=== PATIENT | male | born 1970 | race Caucasian/White ===

== ENCOUNTER 2019-12-08 08:59 | Outpatient (REF) | payer BC, SELFPAY ==
[2019-12-08 10:56] LABS: INTERNATIONAL NORM RATIO 2.8 (0.9-1.1); Prothrombin Time 33.6 SEC (10.8-13.0)
== END 2019-12-08 09:00 | disposition home or self-care (01) ==
LOC: HO.10HDL 08:59
PROVIDERS: Visit Provider Internal Medicine
DX: I82.409 Acute embolism and thrombosis of unspecified deep veins of unspecified lower extremity (principal); Z95.2 Presence of prosthetic heart valve
CPT/HCPCS: 36415; 85610

== ENCOUNTER → 2020-01-04 09:43 | Outpatient (BNVA) | payer BC, SELFPAY | PROVIDERS: PCP Internal Medicine; Referring Provider Internal Medicine; Visit Provider Internal Medicine Cardiovascular Disease | DX: Z95.2 Presence of prosthetic heart valve (principal); Z86.718 Personal history of other venous thrombosis and embolism; D68.59 Other primary thrombophilia; Z79.01 Long term (current) use of anticoagulants | CPT/HCPCS: 93005 ==

== ENCOUNTER 2020-01-04 10:41 | Outpatient (REF) | payer BC, SELFPAY ==
[2020-01-04 14:11] LABS: INTERNATIONAL NORM RATIO 2.5 (0.9-1.1); Prothrombin Time 29.6 SEC (10.8-13.0)
== END 2020-01-04 10:42 | disposition home or self-care (01) ==
LOC: HO.10HDL 10:41
PROVIDERS: Visit Provider Internal Medicine
DX: I82.409 Acute embolism and thrombosis of unspecified deep veins of unspecified lower extremity (principal); Z95.2 Presence of prosthetic heart valve
CPT/HCPCS: 36415; 85610

== ENCOUNTER → 2020-01-13 09:30 | Outpatient (REF) | payer BC, SELFPAY ==
--- NOTE | 2020-01-13 09:37 | CA_ITS ---
Transthoracic Echocardiogram Patient (Last, First, Middle): Jagdish Bautista, Gender: Male Date of : 1970 Age: 49 Procedure Date: 01/13/2020 Procedure Type: Transthoracic Echocardiogram Location: OP Height: 185.42 cm Weight: 92.08 kg BSA: 2.17 m2 Heart Rate: bpm BP: 104 / 64 mmHg Grocery Clerk: CARLOS Davenport MD: Deepak Villanueva MD Tibco Developer: Deepak Villanueva MD Symptoms: Z95.2 - Presence of prosthetic heart valve Study Quality: Good ECG Rhythm: Sinus Conclusions: - 1. Normal LV systolic and diastolic function 2. Normally functioning mechanical aortic prosthesis with mean gradient of 10 mm of mercury 3. Normal RV systolic pressure 4. No pericardial effusion Findings Left Ventricle Normal left ventricular size, thickness, and systolic function. The visually estimated ejection fraction is between 60-65%. Diastolic function is normal for age. Right Ventricle Mildly increased right ventricular cavity size. There is normal right ventricular systolic function. Atria The left atrium is normal in size. There is lipomatous hypertrophy of the interatrial septum. There is no evidence of interatrial shunt. The right atrium is mildly dilated. Aortic Valve A mechanical prosthetic aortic valve is present. The prosthetic aortic valve appears to be functioning normally. The mean gradient is 10 mmHg. There is no aortic valve regurgitation. The mechanical prosthesis is well seated with no abnormal rocking motion. Mitral Valve Normal mitral valve structure and function. There is trace mitral valve regurgitation. There is no mitral valve stenosis. Pulmonic Valve The pulmonic valve is likely normal. Tricuspid Valve Normal tricuspid valve structure. There is trace tricuspid valve regurgitation. The right ventricular systolic pressure is normal. The right ventricular systolic pressure is 24 mmHg. Normal right atrial pressure. There is no evidence of pulmonary hypertension. Great Vessels All visible segments of the aorta are normal in size. The pulmonary artery was not well visualized. Venous The inferior vena cava is normal in size and collapses greater than 50% with inspiration. Pericardium/Pleural There is no evidence of pericardial effusion. Prior Study Comparison No significant change compared to prior study dated: 01/02/2018. Measurements 2D Linear Measurements RVIDd: 3.42 RVIDd Index: 1.58 IVSd: 0.96 0.6-0.9/0.6-1.0 cm LVIDd: 4.71 3.9-5.3/4.2-5.9 cm LVIDd Index: 2.17 2.4-3.2/2.2-3.1 cm/m2 LVIDs: 2.99 2.0-3.6 cm LVPWd: 1.03 0.7-1.1 cm Ao Root: 3.10 2.1-3.5 cm LA Diam: 3.80 2.7-3.8/3.0-4.0 cm LAIDs Index: 1.75 1.5-2.3 cm/m2 LV Mass: 241.97 67-162/88-224 g LV Mass Index: 111.51 43-95/49-115 g/m2 LVOT Diam: 2.20 3.0+(-)1.3 cm 2D Systolic Function EF 4C: 67.70 >55% EF 2C: 62.10 >55% EF BiP: 64.90 >55% Mitral Valve MV Pk E: 1.32 MV PK A: 0.79 MV Decel Time: 201.00 E/A: 1.70 E'Lateral: 12.30 E'Medial: 11.40 E/E' Med: 11.60 E/E' Lat: 10.70 Aortic Valve AoV Pk Casey: 2.13 AoV Mn Casey: 1.52 AoV VTI: 0.39 AoV Pk Grad: 18.00 Aov Mn Grad: 10.00 YOU Cont.VTI: 1.88 LVOT LVOT Pk Casey: 0.85 LVOT Mn Casey: 0.67 LVOT VTI: 0.19 LVOT Pk Grad: 3.00 LVOT Mn Grad: 2.00 LVOT Diam: 2.20 LVOT Area: 3.80 Diastolic Function MV Pk E: 1.32 MV Pk A: 0.79 E/A: 1.70 E'Medial: 11.40 E/E' Med: 11.60 E' Laterial: 12.30 E/E' Lat: 10.70 Tricuspid Valve TR Pk Casey: 2.02 TR Pk Grad: 16.00 RA Press: 8.00 RVSP: 24.00 Great Vessels Aorta Ao Root-2D: 3.10 2.0-3.7 cm Ao Asc: 3.40 2.1-3.4 cm Ao Arch: 3.20 Updated in Other Vendor System with Status of Final Deepak Villanueva MD electronically signed on 01/13/2020 2:37:33 PM with status of Final
== END ==
LOC: HO.CARD 09:30
PROVIDERS: Visit Provider Internal Medicine Cardiovascular Disease
DX: Z95.2 Presence of prosthetic heart valve (principal)
CPT/HCPCS: 93306

== ENCOUNTER 2020-06-20 09:45 | Outpatient (REF) | payer BC, SELFPAY ==
[2020-06-20 14:31] LABS: INTERNATIONAL NORM RATIO 2.2 (0.9-1.1); Prothrombin Time 26.8 SEC (10.8-13.0)
== END 2020-06-20 09:46 | disposition home or self-care (01) ==
LOC: HO.10HDL 09:45
PROVIDERS: Visit Provider Internal Medicine
DX: I82.409 Acute embolism and thrombosis of unspecified deep veins of unspecified lower extremity (principal); Z95.2 Presence of prosthetic heart valve
CPT/HCPCS: 36415; 85610

== ENCOUNTER 2020-08-03 12:24 | Outpatient (REF) | payer BC, SELFPAY ==
[2020-08-03 13:24] LABS: INTERNATIONAL NORM RATIO 2.5 (0.9-1.1); Prothrombin Time 29.7 SEC (10.8-13.0)
== END 2020-08-03 12:25 | disposition home or self-care (01) ==
LOC: HO.10HDL 12:24
PROVIDERS: Visit Provider Internal Medicine
DX: I82.409 Acute embolism and thrombosis of unspecified deep veins of unspecified lower extremity (principal)
CPT/HCPCS: 36415; 85610

== ENCOUNTER 2020-09-13 12:00 | Outpatient (REF) | payer BC, SELFPAY ==
[2020-09-13 13:04] LABS: INTERNATIONAL NORM RATIO 3.1 (0.9-1.1); Prothrombin Time 35.6 SEC (9.9-13.0)
== END 2020-09-13 12:01 | disposition home or self-care (01) ==
LOC: HO.LAB 12:00
PROVIDERS: PCP Internal Medicine; Visit Provider Internal Medicine
DX: I82.409 Acute embolism and thrombosis of unspecified deep veins of unspecified lower extremity (principal)
CPT/HCPCS: 36415; 85610

== ENCOUNTER 2020-10-06 09:46 | Outpatient (REF) | payer BC, SELFPAY ==
--- NOTE | ~2020-10-06 | XR_ITS ---
EXAMINATION: XR HIP, RIGHT CLINICAL INFORMATION: Pain. Assess for OA. COMPARISON: None TECHNIQUE: Two views of the right hip. FINDINGS: There is mild superolateral loss of right hip joint with mild flattening of the right lateral femoral head minimal periarticular spurring is seen medially. No fracture or lytic process seen in the acetabulum is maintained normal. The soft tissues are normal. XR/XR hip RT min 2V IMPRESSION: Mild to moderate degenerative arthritic changes right hip joint. No acute fracture or subluxation.
[2020-10-06 14:04] LABS: INTERNATIONAL NORM RATIO 3.1 (0.9-1.1); Prothrombin Time 35.8 SEC (9.9-13.0)
== END 2020-10-06 09:47 | disposition home or self-care (01) ==
LOC: HO.XRAY 09:46
PROVIDERS: PCP Internal Medicine; Visit Provider Internal Medicine
DX: I82.409 Acute embolism and thrombosis of unspecified deep veins of unspecified lower extremity (principal); M25.551 Pain in right hip
CPT/HCPCS: 36415; 73502; 85610

== ENCOUNTER 2020-11-25 11:41 | Outpatient (REF) | payer BC, SELFPAY ==
[2020-11-25 13:32] LABS: Prothrombin Time 34.8 SEC (9.9-13.0)
== END 2020-11-25 11:42 | disposition home or self-care (01) ==
LOC: HO.10HDL 11:41
PROVIDERS: Visit Provider Internal Medicine
DX: I82.409 Acute embolism and thrombosis of unspecified deep veins of unspecified lower extremity (principal)
CPT/HCPCS: 36415; 85610

== ENCOUNTER → 2020-12-06 14:51 | Outpatient (REF) | payer BC, SELFPAY | LOC: HO.SL 14:51 | PROVIDERS: PCP Internal Medicine; Visit Provider Internal Medicine | DX: G47.10 Hypersomnia, unspecified (principal); R06.83 Snoring | CPT/HCPCS: 95806 ==

== ENCOUNTER 2020-12-15 12:54 | Outpatient (REF) | payer BC, SELFPAY ==
--- NOTE | ~2020-12-15 | MR_ITS ---
EXAMINATION: MR PELVIS WITHOUT AND WITH CONTRAST CLINICAL INFORMATION: 50-year-old male with pain. Pain in region of right greater trochanter. COMPARISON: Radiographs of the hip from 10/06/2020. TECHNIQUE: Multiplanar, multisequence MR imaging examination of the pelvis was performed on a high-field 1.5 Xiomara magnet without and with intravenous administration of 10 mL Gadavist. FINDINGS: The lower lumbar spine is partially included in the [id number]. There is degenerative loss of disc height and vertebral osteophyte formation at L3-L4, L4-L5 and L5-S1, and facet arthropathy is noted at L4-5 and L5-S1. Pelvic bones and proximal femurs have normal marrow signal. No suspicious osseous lesion. No fracture or osteonecrosis. Small bone island is present in the posterior right iliac bone. The sacroiliac joints and pubic symphysis are normal. At the right hip, there is severe loss of articular cartilage of the anterosuperior femoral head and overlying acetabulum. There is associated subchondral sclerosis and osteophyte formation of the degenerated hip. Small hip joint effusion is present. A area of septated pericapsular/perilabral cystic change at the superolateral acetabulum measures approximately 1.3 x 3.3 x 1.1 cm. There is lack of sphericity of the right (and left) femoral head and neck, which could predispose to cam type femoroacetabular impingement. There is at least moderate loss of articular cartilage at the superior aspect of the degenerated left femoroacetabular joint. The visualized distal iliopsoas tendons have normal attachments to the lesser trochanters. No iliopsoas bursitis. The gluteus minimus and medius tendons have normal insertions on the right and left greater trochanters. No evidence of trochanteric bursitis. The visualized proximal hamstring tendons are normal. The fat planes are well-preserved along the visualized course of each sciatic nerve. No pelvic mass, free fluid or lymphadenopathy. Prostate gland and urinary bladder are unremarkable. No dilated bowel loops within the visualized lower abdomen and pelvis. The rectum is unremarkable. MR/MR pelvis wo/w con IMPRESSION: * No pelvic soft tissue mass, lymphadenopathy or free fluid. * No evidence of gluteus tendon tear or trochanteric bursitis at either hip. * Osteoarthritis of both hips, right worse than left. At the right hip, there is [id number] osteoarthritis, and the lack of sphericity of the femoral head-neck could predispose to cam type femoroacetabular impingement. There is a septated pericapsular/perilabral cyst of the superolateral acetabulum.
== END 2020-12-15 12:55 | disposition home or self-care (01) ==
LOC: HO.MRI 12:54
PROVIDERS: Visit Provider Internal Medicine
DX: I87.2 Venous insufficiency (chronic) (peripheral) (principal); R22.43 Localized swelling, mass and lump, lower limb, bilateral; R60.0 Localized edema
CPT/HCPCS: 72197; A9585

== ENCOUNTER → 2021-01-09 08:43 | Outpatient (BNVA) | payer BC, SELFPAY | PROVIDERS: PCP Internal Medicine; Referring Provider Internal Medicine; Visit Provider Internal Medicine Cardiovascular Disease | DX: Z01.810 Encounter for preprocedural cardiovascular examination (principal); I48.0 Paroxysmal atrial fibrillation; Z95.2 Presence of prosthetic heart valve | CPT/HCPCS: 93005 ==

== ENCOUNTER 2021-01-09 09:23 | Outpatient (REF) | payer BC, SELFPAY ==
[2021-01-09 11:36] LABS: INTERNATIONAL NORM RATIO 3.3 (0.9-1.1); Prothrombin Time 38.5 SEC (9.9-13.0)
== END 2021-01-09 09:24 | disposition home or self-care (01) ==
LOC: HO.10HDLR 09:23
PROVIDERS: Visit Provider Internal Medicine
DX: I82.409 Acute embolism and thrombosis of unspecified deep veins of unspecified lower extremity (principal)
CPT/HCPCS: 36415; 85610

== ENCOUNTER 2021-02-27 10:40 | Outpatient (REF) | payer BC, SELFPAY ==
[2021-02-27 13:27] LABS: MANUAL DIFF FLAG NO
[2021-02-27 13:33] LABS: Basophils Percent Auto 0.5 % (0-2); Eosinophils Absolute Auto 0.1 X10*3/uL (0.0-0.4); Eosinophils Percent Auto 1.7 % (0-4); Hematocrit 48.8 % (42.0-52.0); Hemoglobin 15.7 g/dl (14.0-18.0); Imm Gran Abs Auto 0.01 X10*3/uL (0.00-0.03); Imm Gran Pct Auto 0.2 % (0.0-0.4); Lymphocytes Absolute Auto 1.5 X10*3/uL (1.2-4.9); Lymphocytes Percent Auto 22.9 % (20-40); Mean Corpuscular HGB Conc 32.2 g/dl (31.0-36.0); Mean Corpuscular Hemoglobin 28.3 pg (27.0-33.0); Mean Corpuscular Volume 87.9 fL (80.0-98.0); Mean Platelet Volume 9.4 fL (9.4-12.4); Monocytes Absolute Auto 0.5 X10*3/uL (0.1-1.2); Monocytes Percent Auto 7.4 % (2-11); Neutrophils Absolute Auto 4.4 x10*3/uL (2.0-8.3); Neutrophils Percent Auto 67.3 % (45-73); Platelet Count 200 X10*3/uL (160-400); Red Blood Count 5.55 X10*6/uL (4.60-5.80); Red Cell Distribution Width 14.2 % (11.0-16.0); White Blood Count 6.5 X10*3/uL (4.8-10.8)
[2021-02-27 13:46] LABS: Alanine Aminotransferase 29 U/L (0-40); Alkaline Phosphatase 53 U/L (39-117); Anion Gap 9 (12-20); Aspartate Amino Transferase 27 U/L (5-37); Bilirubin Total 0.7 mg/dL (0.0-1.0); Blood Urea Nitrogen 16 mg/dL (9-16); C Reactive Protein 0.17 mg/dL (< or = 0.50); Calcium 9.2 mg/dL (8.4-10.2); Carbon Dioxide 28 mmol/L (22-29); Chloride 106 mmol/L (96-108); Estimated Glomerular Filt Rate > 60; Glucose Random 68 mg/dL (60-115); Potassium 4.1 mmol/L (3.3-5.1); Sodium 139 mmol/L (135-145); Total Protein 6.8 g/dL (6.5-8.0)
[2021-02-27 13:48] LABS: Prothrombin Time 35.1 SEC (9.9-13.0)
== END 2021-02-27 10:41 | disposition home or self-care (01) ==
LOC: HO.10HDL 10:40
PROVIDERS: Visit Provider Internal Medicine
DX: R00.2 Palpitations (principal)
CPT/HCPCS: 36415; 80053; 85025; 85610; 86140

== ENCOUNTER 2021-03-02 17:45 | Outpatient (REF) | payer BC, SELFPAY ==
--- NOTE | ~2021-03-02 | MR_ITS ---
EXAMINATION: MRI BRAIN WITHOUT CONTRAST CLINICAL INFORMATION: Transient ischemic attack. Evaluate for cerebrovascular accident. COMPARISON: No relevant prior imaging. TECHNIQUE: Multiplanar MR imaging of the brain was performed without contrast. FINDINGS: There are a few scattered nonspecific foci of T2 FLAIR signal hyperintensity within the periventricular white matter. No acute territorial infarct. There are a few scattered nonspecific foci of magnetic susceptibility artifact visualized within both cerebral hemispheres. Intracranial vascular flow voids are grossly maintained. There is no intracranial mass effect or midline shift. No abnormal extra-axial collection. Lateral and third ventricles are normal. No hydrocephalus. Midline structures including the cervicomedullary junction are normal. No acute bone marrow signal changes. There is no mastoid or middle ear effusion. Mild paranasal sinus mucosal thickening within ethmoid air cells and maxillary sinuses. Globes and orbits are symmetric. MR/MR head/brain wo con IMPRESSION: Unremarkable examination in that there is no evidence of acute territorial infarct or hemorrhage. A few scattered chronic microhemorrhages are visualized within both cerebral hemispheres, the etiology of which is uncertain on the basis of this examination.
== END 2021-03-02 17:46 | disposition home or self-care (01) ==
LOC: HO.MRI 17:45
PROVIDERS: PCP Internal Medicine; Visit Provider Internal Medicine
DX: G45.9 Transient cerebral ischemic attack, unspecified (principal); I48.0 Paroxysmal atrial fibrillation; Z95.2 Presence of prosthetic heart valve
CPT/HCPCS: 70551

== ENCOUNTER → 2021-03-08 09:55 | Outpatient (REF) | payer BC, SELFPAY ==
--- NOTE | 2021-03-08 09:58 | CA_ITS ---
Transthoracic Echocardiogram Patient (Last, First, Middle): Jagdish Bautista, Gender: Male Date of : 1970 Age: 51 Procedure Date: 03/08/2021 Procedure Type: Transthoracic Echocardiogram Location: OP Height: 185.42 cm Weight: 92.99 kg BSA: 2.17 m2 Heart Rate: bpm BP: 134 / 80 mmHg Centrifugal Machine Tender: JORGE Referring MD: Deepak Villanueva MD Mobile Phlebotomist: Deepak Villanueva MD Symptoms: Z95.2 - Presence of prosthetic heart valve Study Quality: Good ECG Rhythm: Sinus Conclusions: - 1. Normally functioning mechanical prosthesis in aortic position with mean gradient of 10 mmHg 2. Normal LV systolic and diastolic function 3. Normal RV systolic pressure 4. No gross pericardial effusion Findings Left Ventricle Normal left ventricular size, thickness, and systolic function. The visually estimated ejection fraction is between 60-65%. Diastolic function is normal for age. Right Ventricle Normal right ventricular cavity size and systolic function. Atria Both atria are normal in size. There is no evidence of interatrial shunt. Aortic Valve A mechanical prosthetic aortic valve is present. The prosthetic aortic valve appears to be functioning normally. The mean gradient is 10 mmHg. The valve is well seated with no abnormal rocking motion. Mitral Valve Normal mitral valve structure and function. There is trace mitral valve regurgitation. There is no mitral valve stenosis. Pulmonic Valve The pulmonic valve was not well visualized. Tricuspid Valve Normal tricuspid valve structure. There is trace tricuspid valve regurgitation. The right ventricular systolic pressure is normal. The right ventricular systolic pressure is 19 mmHg. Normal right atrial pressure. There is no evidence of pulmonary hypertension. Great Vessels All visible segments of the aorta are normal in size. The pulmonary artery was not well visualized. Venous The inferior vena cava is normal in size and collapses greater than 50% with inspiration. Pericardium/Pleural There is no evidence of pericardial effusion. Prior Study Comparison No significant change compared to prior study dated: 01/13/2020. Measurements 2D Linear Measurements IVSd: 1.09 0.6-0.9/0.6-1.0 cm LVIDd: 4.44 3.9-5.3/4.2-5.9 cm LVIDd Index: 2.05 2.4-3.2/2.2-3.1 cm/m2 LVIDs: 2.51 2.0-3.6 cm LVPWd: 1.04 0.7-1.1 cm Ao Root: 3.20 2.1-3.5 cm LA Diam: 3.50 2.7-3.8/3.0-4.0 cm LAIDs Index: 1.61 1.5-2.3 cm/m2 LV Mass: 203.91 67-162/88-224 g LV Mass Index: 93.97 43-95/49-115 g/m2 LVOT Diam: 2.30 3.0+(-)1.3 cm 2D Systolic Function EF 4C: 60.60 >55% EF 2C: 50.70 >55% EF BiP: 56.30 >55% Mitral Valve MV Pk E: 0.89 MV PK A: 0.84 MV Decel Time: 203.00 E/A: 1.10 E'Lateral: 12.30 E'Medial: 7.94 E/E' Med: 11.20 E/E' Lat: 7.20 PHT: 59.00 MVA PHT: 3.73 Decel Adams: 4.40 Aortic Valve AoV Pk Casey: 2.10 AoV Mn Casey: 1.52 AoV VTI: 0.44 AoV Pk Grad: 18.00 Aov Mn Grad: 10.00 YOU Cont.VTI: 1.69 LVOT LVOT Pk Casey: 0.83 LVOT Mn Casey: 0.63 LVOT VTI: 0.18 LVOT Pk Grad: 3.00 LVOT Mn Grad: 2.00 LVOT Diam: 2.30 LVOT Area: 4.15 Diastolic Function MV Pk E: 0.89 MV Pk A: 0.84 E/A: 1.10 E'Medial: 7.94 E/E' Med: 11.20 E' Laterial: 12.30 E/E' Lat: 7.20 Right Ventricle TAPSE (mm): 26.00 Tricuspid Valve TR Pk Casey: 2.03 TR Pk Grad: 16.00 RA Press: 3.00 RVSP: 19.00 Great Vessels Aorta Ao Root-2D: 3.20 2.0-3.7 cm Ao Asc: 3.60 2.1-3.4 cm Pulmonary Valve PV Pk Casey: 0.86 Peak PV Grad: 3.00 Updated in Other Vendor System with Status of Final Deepak Villanueva MD electronically signed on 03/08/2021 1:19:23 PM with status of Final
== END ==
LOC: HO.CARD 09:55
PROVIDERS: Visit Provider Internal Medicine Cardiovascular Disease
DX: Z95.2 Presence of prosthetic heart valve (principal)
CPT/HCPCS: 93306

== ENCOUNTER → 2021-03-20 13:45 | Outpatient (REF) | payer BC, SELFPAY ==
--- NOTE | 2021-03-20 13:48 | HM_ITS ---
Total monitoring time 3 days. Underlying rhythm is sinus. Minimum heart rate 53/Min. Maximum 134/Min. Average 75/Min. No atrial fibrillation or flutter or AV blocks or pauses. Rare supraventricular ectopy with burden of 0.7%. 103 supraventricular runs. Longest episode 1 min 42 seconds at 109/Min- could be atrial tachycardia. No patient events. MTDD
== END ==
LOC: HO.CARD 13:45
PROVIDERS: PCP Internal Medicine; Visit Provider Internal Medicine
DX: Z95.2 Presence of prosthetic heart valve (principal)
CPT/HCPCS: 93242

== ENCOUNTER → 2021-04-12 10:15 | Outpatient (BNVA) | payer BC, SELFPAY | PROVIDERS: PCP Internal Medicine; Referring Provider Internal Medicine; Visit Provider Internal Medicine Cardiovascular Disease | DX: I48.0 Paroxysmal atrial fibrillation (principal); R42 Dizziness and giddiness; Z95.2 Presence of prosthetic heart valve | CPT/HCPCS: 93005 ==

== ENCOUNTER 2021-04-12 11:07 | Outpatient (REF) | payer BC, SELFPAY ==
[2021-04-12 13:59] LABS: INTERNATIONAL NORM RATIO 2.6 (0.9-1.1); Prothrombin Time 30.6 SEC (9.9-13.0)
== END 2021-04-12 11:08 | disposition home or self-care (01) ==
LOC: HO.10HDL 11:07
PROVIDERS: Visit Provider Internal Medicine
DX: I82.409 Acute embolism and thrombosis of unspecified deep veins of unspecified lower extremity (principal); R42 Dizziness and giddiness; I48.0 Paroxysmal atrial fibrillation; Z95.2 Presence of prosthetic heart valve
CPT/HCPCS: 36415; 85610

== ENCOUNTER 2021-06-05 10:38 | Outpatient (REF) | payer BC, SELFPAY ==
[2021-06-05 13:31] LABS: INTERNATIONAL NORM RATIO 3.2 (0.9-1.1); Prothrombin Time 37.2 SEC (9.9-13.0)
== END 2021-06-05 10:39 | disposition home or self-care (01) ==
LOC: HO.10HDL 10:38
PROVIDERS: Visit Provider Internal Medicine
DX: I82.409 Acute embolism and thrombosis of unspecified deep veins of unspecified lower extremity (principal)
CPT/HCPCS: 36415; 85610

== ENCOUNTER 2021-07-07 07:03 | Outpatient (REF) | payer BC, SELFPAY ==
[2021-07-07 07:32] LABS: Hematocrit 49.6 % (42.0-52.0); Hemoglobin 16.5 g/dl (14.0-18.0); Mean Corpuscular HGB Conc 33.3 g/dl (31.0-36.0); Mean Corpuscular Hemoglobin 29.3 pg (27.0-33.0); Mean Corpuscular Volume 87.9 fL (80.0-98.0); Platelet Count 170 X10*3/uL (160-400); Red Blood Count 5.64 X10*6/uL (4.60-5.80); Red Cell Distribution Width 14.1 % (11.0-16.0); White Blood Count 5.8 X10*3/uL (4.8-10.8)
[2021-07-07 07:40] LABS: INTERNATIONAL NORM RATIO 3.2 (0.9-1.1); Prothrombin Time 37.7 SEC (9.9-13.0)
[2021-07-07 08:10] LABS: Alanine Aminotransferase 21 U/L (0-40); Alkaline Phosphatase 53 U/L (39-117); Anion Gap 10 (12-20); Aspartate Amino Transferase 25 U/L (5-37); Bilirubin Total 0.8 mg/dL (0.0-1.0); Blood Urea Nitrogen 16 mg/dL (9-16); Calcium 9.5 mg/dL (8.4-10.2); Carbon Dioxide 28 mmol/L (22-29); Chloride 106 mmol/L (96-108); Cholesterol 177 mg/dL; Estimated Glomerular Filt Rate > 60; Glucose Random 96 mg/dL (60-115); HDL Cholesterol 49 mg/dL; LDL Cholesterol Calculated 114 mg/dl; Potassium 4.7 mmol/L (3.3-5.1); Sodium 139 mmol/L (135-145); Total Protein 6.8 g/dL (6.5-8.0); Triglycerides 71 mg/dL
[2021-07-07 08:21] LABS: Appearance Urine CLEAR; Color Urine YELLOW; Glucose Urine UA NEG (NEG); Leukocyte Esterase Urine NEG (NEG); Nitrite Urine NEG (NEG); Specific Gravity - Urine 1.015 (1.005-1.025); Urine Blood NEG (NEG); Urine Ketones NEG (NEG); Urine Protein NEG (NEG-TRACE)
[2021-07-07 08:33] LABS: Prostate Specific Antigen 0.38 ng/mL (<0.05-4.0)
== END 2021-07-07 07:04 | disposition home or self-care (01) ==
LOC: HO.LAB 07:03
PROVIDERS: PCP Internal Medicine; Visit Provider Internal Medicine
DX: I35.0 Nonrheumatic aortic (valve) stenosis (principal); Z86.718 Personal history of other venous thrombosis and embolism; Z12.5 Encounter for screening for malignant neoplasm of prostate
CPT/HCPCS: 36415; 80053; 80061; 81003; 84153; 85027; 85610

== ENCOUNTER 2021-10-06 09:43 | Outpatient (REF) | payer BC, SELFPAY ==
[2021-10-06 10:38] LABS: INTERNATIONAL NORM RATIO 2.4 (0.9-1.1); Prothrombin Time 28.6 SEC (10.0-13.1)
== END 2021-10-06 09:44 | disposition home or self-care (01) ==
LOC: HO.LAB 09:43
PROVIDERS: PCP Internal Medicine; Visit Provider Internal Medicine
DX: I82.409 Acute embolism and thrombosis of unspecified deep veins of unspecified lower extremity (principal)
CPT/HCPCS: 36415; 85610

== ENCOUNTER 2021-11-24 10:17 | Outpatient (REF) | payer BC, SELFPAY ==
[2021-11-24 13:43] LABS: INTERNATIONAL NORM RATIO 2.5 (0.9-1.1); Prothrombin Time 29.8 SEC (10.0-13.1)
== END 2021-11-24 10:18 | disposition home or self-care (01) ==
LOC: HO.10HDLR 10:17
PROVIDERS: Visit Provider Internal Medicine
DX: I82.409 Acute embolism and thrombosis of unspecified deep veins of unspecified lower extremity (principal); I35.0 Nonrheumatic aortic (valve) stenosis; I87.8 Other specified disorders of veins
CPT/HCPCS: 36415; 85610

== ENCOUNTER 2022-02-21 09:54 | Outpatient (REF) | payer BC, SELFPAY ==
[2022-02-21 10:48] LABS: INTERNATIONAL NORM RATIO 3.4 (0.9-1.1); Prothrombin Time 41.7 SEC (10.0-13.1)
== END 2022-02-21 09:55 | disposition home or self-care (01) ==
LOC: HO.10HDLR 09:54
PROVIDERS: Visit Provider Internal Medicine
DX: Z86.718 Personal history of other venous thrombosis and embolism (principal)
CPT/HCPCS: 36415; 85610

== ENCOUNTER → 2022-04-09 07:24 | Outpatient (REF) | payer BC, SELFPAY ==
--- NOTE | 2022-04-09 07:28 | CA_ITS ---
Transthoracic Echocardiogram Patient (Last, First, Middle): Jagdish Bautista, Gender: Male Date of : 1970 Age: 52 Procedure Date: 04/09/2022 Procedure Type: Transthoracic Echocardiogram Location: OP Height: 182.88 cm Weight: 92.99 kg BSA: 2.15 m2 Heart Rate: bpm BP: 122 / 78 mmHg Salesperson Terrazzo Tiles: JORGE Referring MD: Deepak Villanueva MD Director Of Analytics: Deepak Villanueva MD Symptoms: I48.0 afib Z95.2 - Presence of prosthetic heart valve, Study Quality: Good ECG Rhythm: Sinus Conclusions: - 1. Normal LV systolic and diastolic function with LVEF of 55 60% 2. Enlarged right atrium right ventricle without evidence of intracardiac shunting 3. Normally functioning mechanical prosthesis in aortic position with mean gradient of 10 mmHg 4. Normal RV systolic pressure 5. No gross pericardial effusion Findings Left Ventricle Normal left ventricular size, thickness, and systolic function. The visually estimated ejection fraction is between 55-60%. Spectral Doppler is indicative of a normal filling pattern. Right Ventricle Mildly increased right ventricular cavity size. There is normal right ventricular systolic function. Atria The left atrium is mildly dilated. There is no evidence of interatrial shunt by agitated saline. The right atrium is moderately dilated. Aortic Valve A mechanical prosthetic aortic valve is present. The prosthetic aortic valve appears to be functioning normally. The mean gradient is 10 mmHg. Mitral Valve Normal mitral valve structure and function. There is trace mitral valve regurgitation. There is no mitral valve stenosis. Pulmonic Valve The pulmonic valve is likely normal. Tricuspid Valve Normal tricuspid valve structure. There is trace tricuspid valve regurgitation. The right ventricular systolic pressure is normal. The right ventricular systolic pressure is 23 mmHg. Normal right atrial pressure. There is no evidence of pulmonary hypertension. Great Vessels The pulmonary artery was not well visualized. There is mild dilatation of the ascending aorta measuring 3.80 cm. Venous The inferior vena cava is normal in size and collapses greater than 50% with inspiration. Pericardium/Pleural There is no evidence of pericardial effusion. Prior Study Comparison No significant change compared to prior study dated: 03/08/2021. Measurements 2D Linear Measurements IVSd: 1.06 0.6-0.9/0.6-1.0 cm LVIDd: 4.58 3.9-5.3/4.2-5.9 cm LVIDd Index: 2.13 2.4-3.2/2.2-3.1 cm/m2 LVIDs: 2.82 2.0-3.6 cm LVPWd: 1.02 0.7-1.1 cm Ao Root: 3.40 2.1-3.5 cm LA Diam: 3.60 2.7-3.8/3.0-4.0 cm LAIDs Index: 1.67 1.5-2.3 cm/m2 LV Mass: 207.31 67-162/88-224 g LV Mass Index: 96.42 43-95/49-115 g/m2 LVOT Diam: 2.00 3.0+(-)1.3 cm 2D Systolic Function EF 4C: 57.80 >55% EF 2C: 60.70 >55% EF BiP: 58.50 >55% Mitral Valve MV VTI: 0.30 MV Pk Casey: 1.07 MV Mn Casey: 0.66 MV Pk Grad: 5.00 MV Mn Grad: 2.00 MV Pk E: 0.94 MV PK A: 0.75 MV Decel Time: 192.00 E/A: 1.30 E'Lateral: 12.00 E'Medial: 9.14 E/E' Med: 10.30 E/E' Lat: 7.90 PHT: 56.00 MVA PHT: 3.93 MVA Continuity: 1.91 Decel Prentiss: 4.91 Aortic Valve AoV Pk Casey: 2.11 AoV Mn Casey: 1.45 AoV VTI: 0.42 AoV Pk Grad: 18.00 Aov Mn Grad: 10.00 YOU Cont.VTI: 1.35 LVOT LVOT Pk Casey: 0.79 LVOT Mn Casey: 0.59 LVOT VTI: 0.18 LVOT Pk Grad: 2.00 LVOT Mn Grad: 2.00 LVOT Diam: 2.00 LVOT Area: 3.14 Diastolic Function MV Pk E: 0.94 MV Pk A: 0.75 E/A: 1.30 E'Medial: 9.14 E/E' Med: 10.30 E' Laterial: 12.00 E/E' Lat: 7.90 Right Ventricle TAPSE (mm): 24.00 Tricuspid Valve TR Pk Casey: 2.26 TR Pk Grad: 20.00 RA Press: 3.00 RVSP: 23.00 Great Vessels Aorta Ao Root-2D: 3.40 2.0-3.7 cm Ao Asc: 3.80 2.1-3.4 cm Ao Arch: 2.60 Ao Desc: 2.60 Pulmonary Valve PV Pk Casey: 0.87 Peak PV Grad: 3.00 Updated in Other Vendor System with Status of Final Deepak Villanueva MD electronically signed on 04/10/2022 5:32:50 PM with status of Final
== END ==
LOC: HO.CARD 07:24
PROVIDERS: PCP Internal Medicine; Visit Provider Internal Medicine Cardiovascular Disease
DX: I48.0 Paroxysmal atrial fibrillation (principal)
CPT/HCPCS: 93306

== ENCOUNTER 2022-04-19 11:43 | Outpatient (REF) | payer BC, SELFPAY ==
[2022-04-19 13:48] LABS: INTERNATIONAL NORM RATIO 3.2 (0.9-1.1); Prothrombin Time 38.7 SEC (10.0-13.1)
== END 2022-04-19 11:44 | disposition home or self-care (01) ==
LOC: HO.10HDL 11:43
PROVIDERS: Visit Provider Internal Medicine
DX: I82.409 Acute embolism and thrombosis of unspecified deep veins of unspecified lower extremity (principal)
CPT/HCPCS: 36415; 85610

== ENCOUNTER 2022-06-18 09:15 | Outpatient (REF) | payer BC, SELFPAY ==
[2022-06-18 10:46] LABS: INTERNATIONAL NORM RATIO 2.6 (0.9-1.1); Prothrombin Time 30.8 SEC (10.0-13.1)
== END 2022-06-18 09:16 | disposition home or self-care (01) ==
LOC: HO.10HDLR 09:15
PROVIDERS: Visit Provider Internal Medicine
DX: I48.91 Unspecified atrial fibrillation (principal)
CPT/HCPCS: 36415; 85610

== ENCOUNTER 2022-09-13 09:32 | Outpatient (REF) | payer BC, SELFPAY ==
[2022-09-13 11:56] LABS: INTERNATIONAL NORM RATIO 2.7 (0.9-1.1); Prothrombin Time 32.2 SEC (10.0-13.1)
== END 2022-09-13 09:33 | disposition home or self-care (01) ==
LOC: HO.10HDL 09:32
PROVIDERS: Visit Provider Internal Medicine
DX: I48.91 Unspecified atrial fibrillation (principal)
CPT/HCPCS: 36415; 85610

== ENCOUNTER → 2022-10-31 08:57 | Outpatient (REF) | payer BC, SELFPAY ==
--- NOTE | 2022-10-31 09:10 | CA_ITS ---
Transthoracic Echocardiogram Patient (Last, First, Middle): Jagdish Bautista, Gender: Male Date of : 1970 Age: 52 Procedure Date: 10/31/2022 Procedure Type: Transthoracic Echocardiogram Location: OP Height: 182.88 cm Weight: 92.99 kg BSA: 2.15 m2 Heart Rate: 57 bpm BP: 124 / 80 mmHg Service Officer: Referring MD: Deepak Villanueva MD Symptoms: I48.0 - Paroxysmal atrial fibrillation Study Quality: Adequate ECG Rhythm: Bradycardia Conclusions: - Normal left ventricular cavity size. There is normal left ventricular wall thickness. The left ventricular systolic function is low normal. The visually estimated ejection fraction is between 50-55%. - E/E prime ratio is between 8 and 15 consistent with indeterminate filling pressures. - Mildly increased right ventricular cavity size. - The left atrium is mildly dilated. Interatrial shunt cannot be excluded by agitated saline. - Mildly elevated right atrial pressure. Mild pulmonary hypertension is present. Findings Left Ventricle Normal left ventricular cavity size. There is normal left ventricular wall thickness. The left ventricular systolic function is low normal. The visually estimated ejection fraction is between 50-55%. Regional wall motion abnormalities can not be excluded due to suboptimal endocardial definition. Abnormal diastolic function is noted. Spectral Doppler is indicative of a pseudonormal filling pattern. E/E prime ratio is between 8 and 15 consistent with indeterminate filling pressures. Right Ventricle Mildly increased right ventricular cavity size. Atria The left atrium is mildly dilated. Interatrial shunt cannot be excluded by agitated saline. Aortic Valve A mechanical prosthetic aortic valve is present. The prosthetic aortic valve appears to be functioning normally. There is no aortic valve stenosis. There is no aortic valve regurgitation. Mitral Valve The mitral valve appears normal. There is trace mitral valve regurgitation. There is no mitral valve stenosis. Pulmonic Valve Normal pulmonic valve structure and function. There is no pulmonic valve regurgitation. Tricuspid Valve Normal tricuspid valve structure and function. There is trace tricuspid valve regurgitation. The right ventricular systolic pressure is 36 mmHg. Mildly elevated right atrial pressure. Mild pulmonary hypertension is present. Great Vessels There is mild dilatation of the ascending aorta measuring 3.50 cm. The visualized portions of the pulmonary artery and branches are normal. Venous The inferior vena cava is dilated and collapses greater than 50% with inspiration. Pericardium/Pleural There is no evidence of pericardial effusion. Prior Study Comparison No significant change compared to prior study dated: 04/09/2022. Measurements 2D Linear Measurements IVSd: 1.09 0.6-0.9/0.6-1.0 cm LVIDd: 4.68 3.9-5.3/4.2-5.9 cm LVIDd Index: 2.18 2.4-3.2/2.2-3.1 cm/m2 LVIDs: 2.68 2.0-3.6 cm LVPWd: 1.03 0.7-1.1 cm Ao Root: 3.30 2.1-3.5 cm LA Diam: 3.70 2.7-3.8/3.0-4.0 cm LAIDs Index: 1.72 1.5-2.3 cm/m2 LV Mass: 220.41 67-162/88-224 g LV Mass Index: 102.51 43-95/49-115 g/m2 LVOT Diam: 2.10 3.0+(-)1.3 cm Mitral Valve MV Pk E: 1.12 MV PK A: 0.71 MV Decel Time: 193.00 E/A: 1.60 E'Lateral: 11.30 E'Medial: 8.92 E/E' Med: 12.60 E/E' Lat: 9.90 PHT: 57.00 MVA PHT: 3.86 Decel [place]: 5.79 Aortic Valve AoV Pk Casey: 2.31 AoV Mn Casey: 1.50 AoV VTI: 0.51 AoV Pk Grad: 21.00 Aov Mn Grad: 11.00 YOU Cont.VTI: 1.25 LVOT LVOT Pk Casey: 0.69 LVOT Mn Casey: 0.49 LVOT VTI: 0.19 LVOT Pk Grad: 2.00 LVOT Mn Grad: 1.00 LVOT Diam: 2.10 LVOT Area: 3.46 Diastolic Function MV Pk E: 1.12 MV Pk A: 0.71 E/A: 1.60 E'Medial: 8.92 E/E' Med: 12.60 E' Laterial: 11.30 E/E' Lat: 9.90 Right Ventricle TAPSE (mm): 24.90 Tricuspid Valve TR Pk Casey: 2.27 TR Pk Grad: 21.00 RA Press: 15.00 RVSP: 36.00 Great Vessels Aorta Ao Root-2D: 3.30 2.0-3.7 cm Sinus of Valsalva: 3.30 2.0-3.5 cm Ao Asc: 3.50 2.1-3.4 cm Pulmonary Valve PV Pk Casey: 0.78 Peak PV Grad: 2.00 Updated in Other Vendor System with Status of Final Asad El MD electronically signed on 11/05/2022 9:59:53 AM with status of Final
== END ==
LOC: HO.CARD 08:57
PROVIDERS: PCP Internal Medicine; Visit Provider Internal Medicine Cardiovascular Disease
DX: I48.0 Paroxysmal atrial fibrillation (principal); Z95.2 Presence of prosthetic heart valve
CPT/HCPCS: 93306

== ENCOUNTER → 2022-10-31 09:10 | Outpatient (BNV) | payer BC, SELFPAY | PROVIDERS: PCP Internal Medicine; Visit Provider Internal Medicine Cardiovascular Disease | DX: I48.0 Paroxysmal atrial fibrillation (principal) | CPT/HCPCS: 93306 ==

== ENCOUNTER 2022-11-13 13:52 | Outpatient (REF) | payer BC, SELFPAY ==
[2022-11-13 14:30] LABS: INTERNATIONAL NORM RATIO 2.9 (0.9-1.1); Prothrombin Time 35.9 SEC (11.1-13.3)
== END 2022-11-13 13:53 | disposition home or self-care (01) ==
LOC: HO.LAB 13:52
PROVIDERS: PCP Internal Medicine; Visit Provider Internal Medicine
DX: I48.91 Unspecified atrial fibrillation (principal); Z98.890 Other specified postprocedural states
CPT/HCPCS: 36415; 85610; 93005

== ENCOUNTER 2022-11-13 14:17 | Outpatient (AMB) | payer BC, SELFPAY ==
[2022-11-13 14:35] VITALS: BP 120/78; PULSE 75; BMI 27.0
--- NOTE | 2022-11-13 14:35 | MHC.OFFVIS ---
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 He recently lost his dad any still grieving from that. He denies any worsening cardiac symptoms. Denies any prolonged palpitation irregular heartbeat. No lightheadedness, syncope. No bleeding issues or neurologic events. 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 No orthopnea, PND. PFSH Medical History Paroxysmal atrial fibrillation Venous insufficiency History of DVT (deep vein thrombosis) Protein S deficiency Surgical History S/P AVR Hx of cardiac cath (~2014) Family History Father No problems noted. Mother No problems noted. Sister HTN (hypertension) Diabetes Review of Systems Const Denies chills, Denies fatigue, Denies fever(s), Denies frequent falls, Denies weakness, Denies weight gain and Denies weight loss ENT Denies dizziness Card Denies chest pain, Denies leg edema, Denies lightheadedness, Denies palpitations, Denies dyspnea, Denies dyspnea on exertion, Denies orthopnea and Denies other (loss of consciousness) Resp Denies cough, Denies dyspnea and Denies dyspnea on exertion GI Denies hematochezia and Denies change in stool character Musc Denies abnormal gait, Denies muscle weakness, Denies numbness, Denies radiating pain into limb and Denies tingling Neuro Denies abnormal gait, Denies dizziness, Denies frequent falls, Denies numbness, Denies tingling and Denies weakness Endo Denies fatigue and Denies palpitations Physical Exam Vital Signs: Last Vital Signs Pulse 75 11/13/22 14:35 BP 120/78 11/13/22 14:35 BMI result Body Mass Index 27.0 Const General: cooperative, comfortable, no acute distress, alert and awake Nutritional Appearance: overweight Orientation/consciousness: patient oriented x3 Limitations: no limitations Neck Neck: Yes trachea midline, Yes supple and Yes no JVD Chest Chest palpation & inspection: normal inspection of the chest Resp Effort & Inspection: normal respiratory effort Auscultation: clear to auscultation bilaterally Cardio Jugular venous distension: no JVD Palpation: normal PMI Rate: regular rate Rhythm: regular rhythm Heart sounds: S1 normal heart sound present, Clicking heart sound present (Closing click of [facility] aortic valve), no gallops, no murmurs and no rubs GI Auscultation: normal bowel sounds Skin General skin exam: no rashes or lesions noted Neuro General: patient oriented x3 and no focal motor deficits Extrem General: No clubbing, No cyanosis and Yes other (Lower extremity in compression stocking) Psych Appearance: grossly normal Office Procedures EKG Details: EKG shows normal sinus rhythm normal EKG [id number], Complete Assessment & Plan Assessment & Plan (1) S/P AVR: Comment: s/p [facility] AVR for severe related to bicuspid AV 05/2014, 27 mm Code(s): Z95.2 - Presence of prosthetic heart valve Plan: Status post [facility] aortic valve replacement of severe aortic stenosis with 27 mm valve for bicuspid aortic valve. Doing well from that perspective. Continue warfarin therapy. Target INR between 2.5 and 3.5 given atrial fibrillation. SBE prophylaxis as per ACC/aha guidelines. Follow up with echocardiogram in 1 year's time. (2) Paroxysmal atrial fibrillation: Code(s): I48.0 - Paroxysmal atrial fibrillation Plan: Paroxysmal atrial fibrillation without any obvious clinical recurrence. Continue warfarin therapy with target INR between 2.5 and 3.5. Avoidance of stimulants was discussed advised to call me with any new symptoms. Does have evidence of mildly elevated filling pressures but without any overt signs of heart failure at this point in time. Follow up with echocardiogram in 1 year's time with saline contrast to evaluate for any shunting. Follow up in the clinic in 1 year's time, sooner p.r.n.. Thank you for allowing me to partake in his care Orders: Orders CA echo transthoracic complete 52 Weeks Z95.2 - Presence of prosthetic heart valve Coding Level of Care Code Est Pt Level 4 (95588) Diagnoses S/P AVR Z95.2 Paroxysmal atrial fibrillation I48.0 CPT Codes EKG - CPT: 23859-[id number], Complete ([id number])
== END 2022-11-13 14:58 | disposition home or self-care (01) ==
PROVIDERS: PCP Internal Medicine; Referring Provider Internal Medicine; Visit Provider Internal Medicine Cardiovascular Disease
DX: Z95.2 Presence of prosthetic heart valve (principal); I48.0 Paroxysmal atrial fibrillation
CPT/HCPCS: 93010; 99214

== ENCOUNTER 2023-02-13 10:00 | Outpatient (REF) | payer BC, SELFPAY ==
[2023-02-13 10:34] LABS: INTERNATIONAL NORM RATIO 2.8 (0.9-1.1); Prothrombin Time 33.5 SEC (11.1-13.3)
== END 2023-02-13 10:01 | disposition home or self-care (01) ==
LOC: HO.10HDL 10:00
PROVIDERS: Visit Provider Internal Medicine
DX: I48.91 Unspecified atrial fibrillation (principal)
CPT/HCPCS: 36415; 85610

== ENCOUNTER 2023-03-19 08:05 | Outpatient (REF) | payer SELFPAY ==
[2023-03-19 09:41] LABS: INTERNATIONAL NORM RATIO 2.8 (0.9-1.1); Prothrombin Time 33.5 SEC (11.1-13.3)
== END 2023-03-19 08:06 | disposition home or self-care (01) ==
LOC: HO.LAB 08:05
PROVIDERS: PCP Internal Medicine; Visit Provider Internal Medicine
DX: I48.91 Unspecified atrial fibrillation (principal)
CPT/HCPCS: 36415; 85610

== ENCOUNTER 2023-05-28 11:09 | Outpatient (REF) | payer OTHER, SELFPAY ==
[2023-05-28 13:42] LABS: INTERNATIONAL NORM RATIO 2.9 (0.9-1.1); Prothrombin Time 35.1 SEC (11.1-13.3)
== END 2023-05-28 11:10 | disposition home or self-care (01) ==
LOC: HO.10HDL 11:09
PROVIDERS: Visit Provider Internal Medicine
DX: I48.91 Unspecified atrial fibrillation (principal)
CPT/HCPCS: 36415; 85610

== ENCOUNTER 2023-07-10 09:33 | Outpatient (REF) | payer OTHER, SELFPAY ==
[2023-07-10 11:06] LABS: Prothrombin Time 36.8 SEC (11.1-13.3)
[2023-07-11 08:48] LABS: Lyme Abs Screen <0.90 index
== END 2023-07-10 09:34 | disposition home or self-care (01) ==
LOC: HO.10HDL 09:33
PROVIDERS: Visit Provider Internal Medicine
DX: T14.8XXA Other injury of unspecified body region, initial encounter (principal); W57.XXXA Bitten or stung by nonvenomous insect and other nonvenomous arthropods, initial encounter
CPT/HCPCS: 36415; 85610; 86617; 86618

== ENCOUNTER 2023-07-22 10:53 | Outpatient (REF) | payer OTHER, SELFPAY ==
[2023-07-22 11:22] LABS: INTERNATIONAL NORM RATIO 1.3 (0.9-1.1); Prothrombin Time 16.1 SEC (11.1-13.3)
== END 2023-07-22 10:54 | disposition home or self-care (01) ==
LOC: HO.10HDL 10:53
PROVIDERS: Visit Provider Internal Medicine
DX: I48.0 Paroxysmal atrial fibrillation (principal)
CPT/HCPCS: 36415; 85610

== ENCOUNTER 2023-07-25 14:50 | Outpatient (REF) | payer OTHER, SELFPAY ==
[2023-07-25 15:18] LABS: Prothrombin Time 24.2 SEC (11.1-13.3)
== END 2023-07-25 14:51 | disposition home or self-care (01) ==
LOC: HO.LAB 14:50
PROVIDERS: PCP Internal Medicine; Visit Provider Internal Medicine
DX: I48.0 Paroxysmal atrial fibrillation (principal)
CPT/HCPCS: 36415; 85610

== ENCOUNTER 2023-09-23 11:02 | Outpatient (REF) | payer OTHER, SELFPAY ==
[2023-09-23 13:24] LABS: INTERNATIONAL NORM RATIO 3.7 (0.9-1.1); Prothrombin Time 44.8 SEC (11.1-13.3)
== END 2023-09-23 11:03 | disposition home or self-care (01) ==
LOC: HO.10HDL 11:02
PROVIDERS: Visit Provider Internal Medicine
DX: I48.91 Unspecified atrial fibrillation (principal)
CPT/HCPCS: 36415; 85610

== ENCOUNTER 2023-10-21 08:31 | Outpatient (REF) | payer OTHER, SELFPAY ==
[2023-10-21 10:36] LABS: MANUAL DIFF FLAG NO
[2023-10-21 10:45] LABS: Basophils Percent Auto 0.6 % (0-2); Eosinophils Absolute Auto 0.1 X10*3/uL (0.0-0.4); Eosinophils Percent Auto 2.5 % (0-4); Hematocrit 49.6 % (42.0-52.0); Hemoglobin 16.2 g/dl (14.0-18.0); Imm Gran Abs Auto 0.01 X10*3/uL (0.00-0.03); Imm Gran Pct Auto 0.2 % (0.0-0.4); Lymphocytes Absolute Auto 1.5 X10*3/uL (1.2-4.9); Mean Corpuscular HGB Conc 32.7 g/dl (31.0-36.0); Mean Corpuscular Hemoglobin 28.7 pg (27.0-33.0); Mean Corpuscular Volume 87.8 fL (80.0-98.0); Mean Platelet Volume 9.1 fL (9.4-12.4); Monocytes Absolute Auto 0.5 X10*3/uL (0.1-1.2); Monocytes Percent Auto 8.6 % (2-11); Neutrophils Absolute Auto 3.1 x10*3/uL (2.0-8.3); Neutrophils Percent Auto 59.1 % (45-73); Platelet Count 169 X10*3/uL (160-400); Red Blood Count 5.65 X10*6/uL (4.60-5.80); White Blood Count 5.3 X10*3/uL (4.8-10.8)
[2023-10-21 11:08] LABS: Alanine Aminotransferase 22 U/L (0-40); Albumin Level 4.2 g/dL (3.5-5.0); Alkaline Phosphatase 57 U/L (39-117); Anion Gap 8 (12-20); Aspartate Amino Transferase 28 U/L (5-37); Bilirubin Total 0.9 mg/dL (0.0-1.0); Blood Urea Nitrogen 18 mg/dL (9-16); Calcium 9.4 mg/dL (8.4-10.2); Carbon Dioxide 28 mmol/L (22-29); Chloride 108 mmol/L (96-108); Cholesterol 145 mg/dL (<200); Estimated Glomerular Filt Rate > 60; Glucose Fasting 85 mg/dL (60-99); HDL Cholesterol 41 mg/dL (>40); LDL Cholesterol Calculated 90 mg/dL (<100); Potassium 4.3 mmol/L (3.3-5.1); Sodium 140 mmol/L (135-145); Total Protein 7.2 g/dL (6.5-8.0); Triglycerides 71 mg/dL (<150)
[2023-10-21 11:33] LABS: Prostate Specific Antigen Scr 0.63 ng/mL (<0.05-4.0)
== END 2023-10-21 08:32 | disposition home or self-care (01) ==
LOC: HO.10HDL 08:31
PROVIDERS: Visit Provider Internal Medicine
DX: Z12.5 Encounter for screening for malignant neoplasm of prostate (principal); I48.0 Paroxysmal atrial fibrillation; Z79.899 Other long term (current) drug therapy
CPT/HCPCS: 36415; 80053; 80061; 84153; 85025

== ENCOUNTER → 2023-11-07 09:50 | Outpatient (REF) | payer OTHER, SELFPAY ==
--- NOTE | 2023-11-07 10:04 | CA_ITS ---
Transthoracic Echocardiogram Patient (Last, First, Middle): Jagdish Bautista, Gender: Male Date of : 1970 Age: 53 Procedure Date: 11/07/2023 Procedure Type: Transthoracic Echocardiogram Location: OP Height: 185.42 cm Weight: 92.99 kg BSA: 2.17 m2 Heart Rate: 68 bpm BP: 124 / 78 mmHg Coil Taper: SB Referring MD: Deepak Villanueva MD Symptoms: Z95.2 - Presence of prosthetic heart valve Study Quality: Adequate ECG Rhythm: Sinus Conclusions: - The left ventricular systolic function is normal. The calculated ejection fraction is 57% by biplane method. - Moderately increased right ventricular cavity size. - There is no evidence of interatrial shunt by agitated saline. - A mechanical prosthetic aortic valve is present. The prosthetic aortic valve appears to be functioning normally. Findings Left Ventricle Normal left ventricular cavity size. There is normal left ventricular wall thickness. The left ventricular systolic function is normal. The calculated ejection fraction is 57% by biplane method. There is no evidence of regional wall motion abnormalities. Diastolic function is normal for age. There is mild septal asymmetric hypertrophy. Right Ventricle Moderately increased right ventricular cavity size. There is normal right ventricular systolic function. Atria The left atrium is normal in size. There is no evidence of interatrial shunt by agitated saline. The right atrium is mildly dilated. (with rest and valsalva). Aortic Valve A mechanical prosthetic aortic valve is present. The prosthetic aortic valve appears to be functioning normally. There is no aortic valve regurgitation. Acceleration time 70-85ms. Mitral Valve The mitral valve appears normal. There is mild mitral annular calcification. There is trace mitral valve regurgitation. There is no mitral valve stenosis. Pulmonic Valve There is trace to mild pulmonic valve regurgitation. Tricuspid Valve Normal tricuspid valve structure. There is trace tricuspid valve regurgitation. There is no evidence of pulmonary hypertension. Great Vessels The asc aorta and aortic arch are normal in size. Venous The inferior vena cava is normal in size and collapses greater than 50% with inspiration. Pericardium/Pleural There is no evidence of pericardial effusion. Prior Study Comparison No significant change compared to prior study dated: 10/31/2022. Measurements 2D Linear Measurements IVSd: 1.06 0.6-0.9/0.6-1.0 cm LVIDd: 4.90 3.9-5.3/4.2-5.9 cm LVIDd Index: 2.26 2.4-3.2/2.2-3.1 cm/m2 LVIDs: 2.87 2.0-3.6 cm LVPWd: 0.77 0.7-1.1 cm LA Diam: 3.80 2.7-3.8/3.0-4.0 cm LAIDs Index: 1.75 1.5-2.3 cm/m2 LV Mass: 195.22 67-162/88-224 g LV Mass Index: 89.97 43-95/49-115 g/m2 LVOT Diam: 2.50 3.0+(-)1.3 cm 2D Systolic Function EF 4C: 63.70 >55% EF 2C: 52.80 >55% EF BiP: 57.10 >55% Mitral Valve MV Pk E: 1.08 MV PK A: 0.61 MV Decel Time: 195.00 E/A: 1.80 E'Lateral: 10.70 E'Medial: 8.27 E/E' Med: 13.10 E/E' Lat: 10.10 PHT: 57.00 MVA PHT: 3.86 Decel [place]: 5.53 Aortic Valve AoV Pk Casey: 2.24 AoV Mn Casey: 1.47 AoV VTI: 0.43 AoV Pk Grad: 20.00 Aov Mn Grad: 11.00 YOU Cont.VTI: 1.92 LVOT LVOT Pk Casey: 0.79 LVOT Mn Casey: 0.58 LVOT VTI: 0.17 LVOT Pk Grad: 2.00 LVOT Mn Grad: 1.00 LVOT Diam: 2.50 LVOT Area: 4.91 Diastolic Function MV Pk E: 1.08 MV Pk A: 0.61 E/A: 1.80 E'Medial: 8.27 E/E' Med: 13.10 E' Laterial: 10.70 E/E' Lat: 10.10 Right Ventricle TVS' Casey: 11.60 Tricuspid Valve TR Pk Casey: 2.05 TR Pk Grad: 17.00 RA Press: 3.00 RVSP: 20.00 Great Vessels Aorta Sinus of Valsalva: 3.70 2.0-3.5 cm Ao Asc: 3.30 2.1-3.4 cm Ao Arch: 3.00 Pulmonary Valve PV Pk Casey: 0.91 Peak PV Grad: 3.00 Updated in Other Vendor System with Status of Final Heber Mallory MD electronically signed on 11/09/2023 12:57:51 PM with status of Final
== END ==
LOC: HO.CARD 09:50
PROVIDERS: PCP Internal Medicine; Visit Provider Internal Medicine Cardiovascular Disease
DX: Z95.2 Presence of prosthetic heart valve (principal)
CPT/HCPCS: 93306

== ENCOUNTER → 2023-11-07 10:04 | Outpatient (BNV) | payer OTHER, SELFPAY | PROVIDERS: PCP Internal Medicine; Visit Provider Internal Medicine | DX: I34.81 Nonrheumatic mitral (valve) annulus calcification (principal); Z95.2 Presence of prosthetic heart valve; I37.1 Nonrheumatic pulmonary valve insufficiency; I42.2 Other hypertrophic cardiomyopathy | CPT/HCPCS: 93306 ==

== ENCOUNTER 2023-11-07 12:48 | Outpatient (REF) | payer OTHER, SELFPAY ==
[2023-11-07 13:16] LABS: INTERNATIONAL NORM RATIO 3.4 (0.9-1.1); Prothrombin Time 41.2 SEC (11.1-13.3)
== END 2023-11-07 12:49 | disposition home or self-care (01) ==
LOC: HO.10HDL 12:48
PROVIDERS: Visit Provider Internal Medicine
DX: I48.91 Unspecified atrial fibrillation (principal)
CPT/HCPCS: 36415; 85610

== ENCOUNTER 2023-11-14 14:10 | Outpatient (AMB) | payer OTHER, SELFPAY ==
--- NOTE | 2023-11-14 14:19 | MHC.OFFVIS ---
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 He has been doing well from cardiac perspective. No new symptoms. No symptoms of lightheadedness. No prolonged palpitation irregular heartbeat. No recurrent DVT events. Warfarin has been well controlled. He denies any recent exertional chest pain. Does not exercise much. However denies any orthopnea, PND, leg edema. PFSH Medical History Paroxysmal atrial fibrillation Venous insufficiency History of DVT (deep vein thrombosis) Protein S deficiency Surgical History S/P AVR Hx of cardiac cath (~2014) Family History Father No problems noted. Mother No problems noted. Sister HTN (hypertension) Diabetes Review of Systems Const Denies chills, Denies fatigue, Denies fever(s), Denies frequent falls, Denies weakness, Denies weight gain and Denies weight loss ENT Denies dizziness Card Denies chest pain, Denies leg edema, Denies lightheadedness, Denies palpitations, Denies dyspnea, Denies dyspnea on exertion, Denies orthopnea and Denies other (loss of consciousness) Resp Denies cough, Denies dyspnea and Denies dyspnea on exertion GI Denies hematochezia and Denies change in stool character Musc Denies abnormal gait, Denies muscle weakness, Denies numbness, Denies radiating pain into limb and Denies tingling Neuro Denies abnormal gait, Denies dizziness, Denies frequent falls, Denies numbness, Denies tingling and Denies weakness Endo Denies fatigue and Denies palpitations Physical Exam Vital Signs: Last Vital Signs Pulse 81 11/14/23 14:21 BP 120/80 11/14/23 14:21 BMI result Body Mass Index 27.3 Const General: cooperative, comfortable, no acute distress, alert and awake Nutritional Appearance: overweight Orientation/consciousness: patient oriented x3 Limitations: no limitations Neck Neck: Yes trachea midline, Yes supple and Yes no JVD Chest Chest palpation & inspection: normal inspection of the chest Resp Effort & Inspection: normal respiratory effort Auscultation: clear to auscultation bilaterally Cardio Jugular venous distension: no JVD Palpation: normal PMI Rate: regular rate Rhythm: regular rhythm Heart sounds: S1 normal heart sound present, Clicking heart sound present (Closing click of [facility] aortic valve), no gallops, no murmurs and no rubs GI Auscultation: normal bowel sounds Skin General skin exam: no rashes or lesions noted Neuro General: patient oriented x3 and no focal motor deficits Extrem General: No clubbing, No cyanosis and Yes other (Lower extremity in compression stocking) Psych Appearance: grossly normal Office Procedures EKG Details: EKG shows normal sinus rhythm with possible inferior infarct most likely due to body habitus and pseudo infarct pattern 81 beats per minute [id number], Complete Assessment & Plan Assessment & Plan (1) S/P AVR: Comment: s/p [facility] AVR for severe related to bicuspid AV 05/2014, 27 mm Code(s): Z95.2 - Presence of prosthetic heart valve Category: Surgical Plan: Post [facility] aortic valve replacement for severe aortic stenosis. Clinically working well. Currently on warfarin therapy being followed through your office. Target INR between 2.5 and 3.5. SBE prophylaxis as per ACC/aha guidelines. (2) Paroxysmal atrial fibrillation: Code(s): I48.0 - Paroxysmal atrial fibrillation Category: Medical Plan: Paroxysmal atrial fibrillation without any obvious clinical recurrence at this point time. Continue warfarin therapy as above with target INR between 2.5 and 3.5. Advised to call me with any new symptoms. No pharmacotherapy in the gated. Avoidance of stimulants was discussed. Encouraged to participate in regular physical activity as tolerated. Will follow up in the clinic in 1 year's time, sooner p.r.n.. Thank you for allowing me to partake in his care Orders: Orders CA echo transthoracic complete 1 Year Z95.2 - Presence of prosthetic heart valve Coding Level of Care Code Est Pt Level 4 (29459) Diagnoses S/P AVR Z95.2 Paroxysmal atrial fibrillation I48.0 CPT Codes EKG - CPT: 92188-[id number], Complete ([id number])
[2023-11-14 14:21] VITALS: BP 120/80; PULSE 81; BMI 27.3
== END 2023-11-14 14:57 | disposition home or self-care (01) ==
PROVIDERS: PCP Internal Medicine; Visit Provider Internal Medicine Cardiovascular Disease
DX: Z95.2 Presence of prosthetic heart valve (principal); I48.0 Paroxysmal atrial fibrillation
CPT/HCPCS: 93010; 99214

== ENCOUNTER → 2023-11-14 14:10 | Outpatient (BNVA) | payer OTHER, SELFPAY | PROVIDERS: PCP Internal Medicine; Visit Provider Internal Medicine Cardiovascular Disease | DX: I48.0 Paroxysmal atrial fibrillation (principal); Z95.2 Presence of prosthetic heart valve; Z79.01 Long term (current) use of anticoagulants | CPT/HCPCS: 93005 ==

== ENCOUNTER 2024-01-23 11:01 | Outpatient (REF) | payer OTHER, SELFPAY ==
[2024-01-23 12:09] LABS: INTERNATIONAL NORM RATIO 3.4 (0.9-1.1); Prothrombin Time 40.1 SEC (10.9-12.4)
== END 2024-01-23 11:02 | disposition home or self-care (01) ==
LOC: HO.LABR 11:01
PROVIDERS: PCP Internal Medicine; Visit Provider Internal Medicine
DX: I48.91 Unspecified atrial fibrillation (principal); Z98.890 Other specified postprocedural states
CPT/HCPCS: 36415; 85610

== ENCOUNTER 2024-01-24 11:23 | Outpatient (REF) | payer OTHER, SELFPAY ==
--- NOTE | ~2024-01-24 | XR_ITS ---
EXAMINATION: XR KNEE, RIGHT CLINICAL INFORMATION: PAIN COMPARISON: None available. TECHNIQUE: 5 views of the right knee. FINDINGS: No fracture or joint effusion. Alignment is anatomic. Joint spaces are maintained. No abnormal soft tissue calcification. There are arterial calcifications in the femoral popliteal system. XR/XR knee RT 4V IMPRESSION: Normal unremarkable plain radiographs of the right knee. Electronically signed by: Jhoan To MD 01/26/2024 10:43 AM ALLAN
== END 2024-01-24 11:24 | disposition home or self-care (01) ==
LOC: HO.XRAY 11:23
PROVIDERS: PCP Internal Medicine; Visit Provider Internal Medicine
DX: M25.561 Pain in right knee (principal)
CPT/HCPCS: 73564

== ENCOUNTER 2024-04-28 14:58 | Outpatient (AMB) | payer OTHER, SELFPAY ==
--- NOTE | 2024-04-28 15:06 | MHC.OFFVIS ---
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 Patient reports hiking when he took a step and he felt instant pain in his knee. He states that he also hurt his knee when she was showing in that same day. Patient mentions his pain is on both sides of the knee depending on what he is doing and his pain shoots up to his hip. Patient hasn't tried any medications since his pain hasn't gotten to the point that he needs to take anything. 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 Bautista is a 54-year-old male who presents to the office today for evaluation of right knee pain. He reports that he was hiking at the beginning of February he was going up hill and he felt a sharp pain in the right knee. He kept walking and once he reached the [place] the [place] he was putting excess pressure on that knee while moving down hill felt a sharp pain again almost causing him to fall. Additionally, when he was showering he went to place full weight on the right knee while he was washing the left lower extremity and felt a severe increase in pain and again almost collapsed. Since this episode the patient reports that his pain has been gradually decreasing. He would like to return back to hiking and playing tennis. He had an MRI that was done at [facility] that was ordered by his primary care physician. Patient does have a past medical history significant for AFib, venous insufficiency, DVT and protein S deficiency. He is on Coumadin 10 mg p.o. daily [facility] Medical History Paroxysmal atrial fibrillation Venous insufficiency History of DVT (deep vein thrombosis) Protein S deficiency Surgical History S/P AVR Hx of cardiac cath (~2014) Family History Father No problems noted. Mother No problems noted. Sister HTN (hypertension) Diabetes Social History (Updated 04/28/24 @ 15:11 by Nancy Baltazar) Alcohol intake: never Patient Tobacco Use Status: Never used Tobacco Current occupational status: retired Review of Systems Const All systems reviewed & are unremarkable except as noted in HPI and below Physical Exam Const General: cooperative, healthy appearing and no acute distress Resp Effort & Inspection: normal respiratory effort and able to speak in complete sentences Cardio Rate: regular rate Peripheral pulses: Peripheral pulses 2+ throughout Skin Lesions: no lesions Rashes: no rashes Extrem Other: Right knee normal to inspection no ecchymosis, erythema or joint effusion. Range of motion 0-110 degrees. NVI. Assessment & Plan Assessment & Plan (1) Right knee meniscal tear: Code(s): S83.206A - Unspecified tear of unspecified meniscus, current injury, right knee, initial encounter Category: Medical Plan Mr. Bautista is a 54-year-old male who presents to the office today for evaluation of right knee pain. He reports that he was hiking at the beginning of February he was going up hill and he felt a sharp pain in the right knee. He kept walking and once he reached the downside of the mountain he was putting excess pressure on that knee while moving down hill felt a sharp pain again almost causing him to fall. Additionally, when he was showering he went to place full weight on the right knee while he was washing the left lower extremity and felt a severe increase in pain and again almost collapsed. Since this episode the patient reports that his pain has been gradually decreasing. He would like to return back to hiking and playing tennis. He had an MRI that was done at [facility] that was ordered by his primary care physician. Patient does have a past medical history significant for AFib, venous insufficiency, DVT and protein S deficiency. He is on Coumadin 10 mg p.o. daily While in the office today, we did discuss the results of the MRI that was obtained. MRI imaging is significant for a old lateral meniscal tear with scarring. I did discuss with the patient that we can manage this nonoperatively. Should his pain be persistent and continue with episodes of sharp pain that interfere with his activities of daily living we would consider the possibility of surgical intervention. At this time the patient is interested in a brace. [facility] was provided to the patient off the shelf. He can wear this during activities. He will follow up p.r.n., sooner if needed. X-rays of the right knee which were obtained on 01/24/2024 were reviewed by me, Sakina Freedman PA-C, revealed no acute fracture dislocation. MRI imaging obtained on 03/18/2024 Coding Level of Care Code New Pt Level 4 (91622) Diagnoses Right knee meniscal tear S83.206A
== END 2024-04-28 16:01 | disposition home or self-care (01) ==
PROVIDERS: PCP Internal Medicine; Visit Provider Physician Assistant
DX: S83.281A Other tear of lateral meniscus, current injury, right knee, initial encounter (principal)
CPT/HCPCS: 99203

== ENCOUNTER → 2024-04-28 14:58 | Outpatient (BNVA) | payer OTHER, SELFPAY | PROVIDERS: PCP Internal Medicine; Visit Provider Physician Assistant ==

== ENCOUNTER 2024-05-26 14:57 | Outpatient (AMB) | payer OTHER, SELFPAY ==
--- NOTE | 2024-05-26 15:03 | MHC.PC.OV ---
Vital Signs 05/26/24 15:08 Height 6 ft 1 in Weight 203 lb 2 oz BMI 26.8 BP 120/70 Blood Pressure Location Rt brachial Position Sitting Respiration 12 Pulse 80 Pulse Source Pulse Oximeter Temp 98.9 F Temp Source Oral Pulse Oximetry (%) 98 Oxygen Delivery Method Room Air Intake Visit Reasons: MOTION PICTURE CRITIC DBT, Blood cloth Intake Note: patient is schedule to establish care with pcp [employer] Sales Consultant Required: No Allergies No Known Allergies Allergy (Verified 05/26/24 15:03) Medication List - Last Reconciled 05/26/24 by Refugio Long MD cholecalciferol (vitamin D3) 50 mcg PO DAILY simvastatin 10 mg PO DAILY warfarin 10 mg PO DAILY Tobacco use date assessed: 05/26/24 Dental Screening Dental Screen Date: 05/26/24 Did you have a dental visit in the last 12 months?: Yes Did you have a dental problem in the last 6 months where you did not have access to dental care?: No Was dental information given to patient?: No HPI MOTION PICTURE CRITIC DBT, Blood cloth HPI Details New Patient? ?? Prior PCP:? dr Richardson Last office visit/CPE:? 1 month. CPE in Dec Acute issue(s):? Skin issue Due for colonoscopy Dr Acosta ?? PMHx:??On Warfarin - Paroxysmal?atrial?fibrillation - possibly after AVR,,?protein?S?deficiency?DVTs, - L femoral vein, venous?insufficiency, Vascular at [facility]. R meniscus injury - Ortho Suzan., HHT Telangetasias - gets nosebleeds. Lower Ext edema & has Full length compression stockings. Migraines, Vertigo SurgHx:??S/p?aortic?valve?replacement. R Hip replacement (O.A), FHx:? Mom: COPD. GM: Blood clots. Dad: Protein S def. HHT, SocHx:? Nonsmoker, EtOH 1-2 drinks a month, No drugs HPI Comments History of Present Illness Details Documentation assistance for Refugio Long MD, was provided by Salomon Cuenca,? Take Down Inspector on 05/26/2024 at 3:32 PM EST. I, Dr. Long, have read, observed, and verified documentation. ?? PFSH Medical History (Reviewed 05/26/24 @ 15:07 by Manuel Taylor [facility]) Paroxysmal atrial fibrillation Venous insufficiency History of DVT (deep vein thrombosis) Protein S deficiency Surgical History S/P AVR Hx of cardiac cath (~2014) Family History Father No problems noted. Mother No problems noted. Sister HTN (hypertension) Diabetes Social History Housing: House Alcohol intake: never Patient Tobacco Use Status: Never used Tobacco e-Cigarette/Vaping Use: Never Used Second Hand Smoke Exposure: No service: No Current occupational status: retired Current occupational exposures/hazards: No Cognitive needs: No Hearing needs: No Vision needs: Yes Questionnaire PHQ-9 Over the last 2 weeks, how often have you been bothered by any of the following problems? 1. Little interest or pleasure in doing things: not at all 2. Feeling down, depressed, or hopeless: not at all 3. Trouble falling or staying asleep, or sleeping too much: not at all 4. Feeling tired or having little energy: not at all 5. Poor appetite or overeating: not at all 6. Feeling bad about yourself - or that you are a failure or have let yourself or your family down: not at all 7. Trouble concentrating on things, such as reading the newspaper or watching television: not at all 8. Moving or speaking so slowly that other people could have noticed. Or the opposite - being so fidgety or restless that you have been moving around a lot more than usual: not at all 9. Thoughts that you would be better off or of hurting yourself in some way: not at all Total score: 0 Depression Screening Interpretation: Negative Depression Screening Done: Yes 07510 - PHQ-9 Billing: Yes Source: Developed by Drs. Luke Romero, Yady Martinez, Ned Orozco and colleagues, with an educational sandee from [employer]. Thrive Questionnaire Date Thrive assessed: 05/26/24 I am a: Patient What is your living situation today?: I have a steady place to live Within the past 12 months, did the food you bought not last and you didn't have the money to get more?: Never true Within the past 12 months, did you worry whether your food would run out before you got money to buy more?: Never true Do you have trouble paying for medicines?: No Do you have trouble getting transportation to medical appointments?: No Do you have trouble paying your heating and electricity bill?: No Do you have trouble taking care of your child, family member or friend?: No Do you have trouble with day-to-day activities such as bathing, preparing meals, shopping, managing finances, etc.?: No Are you currently unemployed and looking for a job?: No Are you interested in more education?: No Please select the resources that you would like help with: None Currently or been in a relationship where the following occur: No concerns reported THRIVE Score: 0 AUDIT C Alcohol Use Questionnaire (AUDIT-C) 1. How often do you have a drink containing alcohol?: Monthly or less 2. How many drinks containing alcohol do you have on a typical day when you are drinking?: 1 or 2 3. How often do you have six or more drinks on one occasion?: Never Total Score: 1 Score Reviewed/Action Taken: Yes FUNMILAYO-7 AMB Questionnaire FUNMILAYO-7 Date FUNMILAYO - 7 assessed: 05/26/24 Feeling nervous, anxious, or on edge: 0 = Not at all Not being able to stop or control worryin = Not at all Worrying too much about different things: 0 = Not at all Trouble relaxin = Not at all Being so restless that it is hard to sit still: 0 = Not at all Becoming easily annoyed or irritable: 0 = Not at all Feeling afraid as if something awful might happen: 0 = Not at all Total FUNMILAYO-7 score (0-4 normal; 5-9 mild; 10-14 moderate; 15-21 severe): 0 Source: Developed by Drs. Luke Romero, Yady Martinez, Ned Orozco and colleagues, with an educational sandee from [employer]. FUNMILAYO-7 Assessment Billing FUNMILAYO-7 Assessment Tool: FUNMILAYO-7 Assessment 06593 Review of Systems Const Denies chills, Denies fatigue, Denies fever(s), Denies headache(s) and Denies weakness ENT Denies dizziness and Denies headache(s) Card Denies chest pain, Denies lightheadedness, Denies dyspnea and Denies other (Palpitations) Resp Denies cough, Denies dyspnea, Denies wheezing and Denies other ( shortness of breath) Musc Denies numbness and Denies tingling Neuro Denies dizziness, Denies headache(s), Denies numbness, Denies tingling, Denies paresthesias and Denies weakness Psych Denies anxiety and Denies depression Endo Denies fatigue Aller/Immun Denies wheezing Physical exam (Primary Care) Vital Signs: Last Vital Signs Temp 98.9 F 05/26/24 15:08 Pulse 80 05/26/24 15:08 Resp 12 05/26/24 15:08 BP 120/70 05/26/24 15:08 Pulse Ox 98 05/26/24 15:08 Oxygen Delivery Method Room Air 05/26/24 15:08 BMI result Body Mass Index 26.8 Tobacco/Smoking Status: Tobacco use Status Tobacco use date assessed 05/26/24 05/26/24 15:05 Patient Tobacco Use Status Never used Tobacco 05/26/24 15:05 e-Cigarette/Vaping Use Never Used 05/26/24 15:05 PHQ-9: PHQ-9 Score PHQ-9: Total score 0 05/26/24 15:11 Depression Screening Interpretation: Negative Thrive Assessment: Date of Thrive Assessment Date Thrive assessed 05/26/24 05/26/24 15:11 Currently or been in a relationship where the following occur: No concerns reported Const General: no acute distress and well developed Nutritional Appearance: well nourished Orientation/consciousness: patient oriented x3 HENMT Head: Yes normocephalic and Yes atraumatic Eyes General: appearance normal, both eyes and all related structures Pupils: Equal, round and reactive pupils present EOM: EOMs intact bilaterally Resp Effort & Inspection: normal respiratory effort Auscultation: clear to auscultation bilaterally Cardio Rate: regular rate Rhythm: regular rhythm Heart sounds: S1 normal heart sound present, S2 normal heart sound present, no gallops, no murmurs and no rubs Neuro General: patient oriented x3 and gait normal Cranial nerves: Yes Equal, round and reactive pupils present Psych Affect: normal affect Coding Level of Care Code New Pt Level 3 (21570) Diagnoses History of DVT (deep vein thrombosis) Z86.718 Paroxysmal atrial fibrillation I48.0 Protein S deficiency D68.59 Right knee meniscal tear S83.206A Venous insufficiency I87.2 Laboratory exam ordered as part of routine general medical examination Z00.00 Additional Codes FUNMILAYO-7 Assessment Billing - FUNMILAYO-7 Assessment Tool: FUNMILAYO-7 Assessment 61810 ([id number]) PHQ-9 - 94855 - PHQ-9 Billing: Yes ([id number]) Assessment & Plan Assessment & Plan (1) History of DVT (deep vein thrombosis): Code(s): Z86.718 - Personal history of other venous thrombosis and embolism Category: Medical Plan: Patient?is?anticoagulated?on?warfarin Will?refer?him?to?the?Coumadin?Clinic Also?has aortic?valve?replacement. Target?INR?between?2.5?and?3.5 (2) Paroxysmal atrial fibrillation: Code(s): I48.0 - Paroxysmal atrial fibrillation Category: Medical Plan: As?above,?patient?is?anticoagulated Currently?appears?to?be?in?a?regular?rhythm Follow-up?with?Cardiology?as?recommended (3) Protein S deficiency: Code(s): D68.59 - Other primary thrombophilia Category: Medical Plan: stable (4) Right knee meniscal tear: Code(s): S83.206A - Unspecified tear of unspecified meniscus, current injury, right knee, initial encounter Category: Medical Plan: Patient?has?upcoming?appointment?with? Follow-up?with?ortho?as?recommended (5) Venous insufficiency: Code(s): I87.2 - Venous insufficiency (chronic) (peripheral) Category: Medical Plan: Patient?wears?full?length compression?stockings?and?compression?shorts Continue?as?recommended.??He?is?followed?by?[facility]?vascular?surgery. (6) Laboratory exam ordered as part of routine general medical examination: Code(s): Z00.00 - Encounter for general adult medical examination without abnormal findings Category: Medical Plan: Check?labs Orders: Orders Comprehensive [place]. Panel Fast Today Z00.00 - Encounter for general adult medical examination without abnormal findings Complete Blood Count Auto Diff Today Z00.00 - Encounter for general adult medical examination without abnormal findings Microalbumin, Random (w Creat) Today I10 - Essential (primary) hypertension Prostate Specific Antigen Scr Today Z12.5 - Encounter for screening for malignant neoplasm of prostate UA and rflx microscopic Today Z00.00 - Encounter for general adult medical examination without abnormal findings Lipid Panel Today Z00.00 - Encounter for general adult medical examination without abnormal findings TSH reflex Free T4 Today Z00.00 - Encounter for general adult medical examination without abnormal findings Prothrombin Time INR Today Z86.718 - Personal history of other venous thrombosis and embolism Referrals Anticoagulation Service/Clinic D68.59 - Other primary thrombophilia, I48.0 - Paroxysmal atrial fibrillation, Z86.718 - Personal history of other venous thrombosis and embolism, Z95.2 - Presence of prosthetic heart valve
[2024-05-26 15:08] VITALS: BP 120/70; PULSE 80; RESP 12; TEMP 37.2; O2SAT 98; BMI 26.8
== END 2024-05-26 16:06 | disposition home or self-care (01) ==
LOC: HO.HMCFM 14:58
PROVIDERS: PCP Internal Medicine; Visit Provider Family Medicine
DX: Z86.718 Personal history of other venous thrombosis and embolism (principal); I48.0 Paroxysmal atrial fibrillation; D68.59 Other primary thrombophilia; S83.206A Unspecified tear of unspecified meniscus, current injury, right knee, initial encounter; I87.2 Venous insufficiency (chronic) (peripheral); Z00.00 Encounter for general adult medical examination without abnormal findings

== ENCOUNTER → 2024-05-26 14:57 | Outpatient (BNVA) | payer OTHER, SELFPAY | PROVIDERS: PCP Internal Medicine; Visit Provider Family Medicine | DX: I48.0 Paroxysmal atrial fibrillation (principal); D68.59 Other primary thrombophilia; I87.2 Venous insufficiency (chronic) (peripheral); S83.206A Unspecified tear of unspecified meniscus, current injury, right knee, initial encounter; Z86.718 Personal history of other venous thrombosis and embolism; Z95.2 Presence of prosthetic heart valve; Z79.01 Long term (current) use of anticoagulants; X58.XXXA Exposure to other specified factors, initial encounter; Y93.9 Activity, unspecified; Y92.9 Unspecified place or not applicable; Y99.9 Unspecified external cause status | CPT/HCPCS: 96127 ==

== ENCOUNTER 2024-05-29 09:13 | Outpatient (REF) | payer OTHER, SELFPAY ==
[2024-05-29 11:15] LABS: MANUAL DIFF FLAG NO
[2024-05-29 11:29] LABS: Basophils Percent Auto 0.6 % (0-2); Eosinophils Absolute Auto 0.1 X10*3/uL (0.0-0.4); Eosinophils Percent Auto 2.4 % (0-4); Hemoglobin 16.6 g/dl (14.0-18.0); Imm Gran Abs Auto 0.02 X10*3/uL (0.00-0.03); Imm Gran Pct Auto 0.4 % (0.0-0.4); Lymphocytes Absolute Auto 1.1 X10*3/uL (1.2-4.9); Lymphocytes Percent Auto 22.2 % (20-40); Mean Corpuscular HGB Conc 33.2 g/dl (31.0-36.0); Mean Corpuscular Hemoglobin 28.9 pg (27.0-33.0); Mean Platelet Volume 9.5 fL (9.4-12.4); Monocytes Absolute Auto 0.4 X10*3/uL (0.1-1.2); Monocytes Percent Auto 8.7 % (2-11); Neutrophils Absolute Auto 3.3 x10*3/uL (2.0-8.3); Neutrophils Percent Auto 65.7 % (45-73); Platelet Count 170 X10*3/uL (160-400); Red Blood Count 5.75 X10*6/uL (4.60-5.80); Red Cell Distribution Width 14.3 % (11.0-16.0)
[2024-05-29 11:33] LABS: INTERNATIONAL NORM RATIO 2.8 (0.9-1.1); Prothrombin Time 33.2 SEC (10.9-12.4)
[2024-05-29 12:20] LABS: Alanine Aminotransferase 31 U/L (0-40); Alkaline Phosphatase 61 U/L (39-117); Anion Gap 10 (12-20); Aspartate Amino Transferase 40 U/L (5-37); Bilirubin Total 0.8 mg/dL (0.0-1.0); Blood Urea Nitrogen 20 mg/dL (9-16); Calcium 9.3 mg/dL (8.4-10.2); Carbon Dioxide 28 mmol/L (22-29); Chloride 107 mmol/L (96-108); Cholesterol 138 mg/dL (<200); Estimated Glomerular Filt Rate > 60; Glucose Fasting 104 mg/dL (60-99); HDL Cholesterol 43 mg/dL (>40); LDL Cholesterol Calculated 82 mg/dL (<100); Potassium 4.5 mmol/L (3.3-5.1); Sodium 140 mmol/L (135-145); Total Protein 6.9 g/dL (6.5-8.0); Triglycerides 65 mg/dL (<150)
[2024-05-29 12:21] LABS: TSH reflex Free T4 1.27 uIU/mL (0.32-4.0)
[2024-05-29 14:17] LABS: Appearance Urine Clear; Color Urine Yellow; Glucose Urine UA Negative (Negative); Leukocyte Esterase Urine Negative (Negative); Nitrite Urine Negative (Negative); PH 6.5 (5.0-9.0); Specific Gravity - Urine 1.015 (1.005-1.025); Urine Blood Negative (Negative); Urine Ketones Negative (Negative); Urine Protein Negative (Neg-Trace)
[2024-05-29 15:10] LABS: Microalbumin Urine < 5.0 mg/L
[2024-05-29 15:19] LABS: Creatinine Urine 98.48 mg/dL
== END 2024-05-29 09:14 | disposition home or self-care (01) ==
LOC: HO.WFDLDS 09:13
PROVIDERS: Visit Provider Family Medicine
DX: Z00.00 Encounter for general adult medical examination without abnormal findings (principal); Z86.718 Personal history of other venous thrombosis and embolism; I10 Essential (primary) hypertension; Z12.5 Encounter for screening for malignant neoplasm of prostate
CPT/HCPCS: 36415; 80053; 80061; 81003; 82043; 82570; 84153; 84443; 85025; 85610

== ENCOUNTER 2024-06-04 09:37 | Outpatient (AMB) | payer OTHER, SELFPAY ==
[2024-06-04 09:40] VITALS: BMI 26.8
--- NOTE | 2024-06-04 09:40 | MHC.OFFVIS ---
Vital Signs 06/04/24 09:40 Height 6 ft 1 in Weight 203 lb BMI 26.8 Intake Visit Reasons: OV - right knee meniscal tear, Discuss sx Intake Note: Jagdish is a 54 year old male who presents today for an MRI review of his right knee. He was last seen with Sakina Freedman where he reported that he injured the knee while hiking. Allergies No Known Allergies Allergy (Verified 06/04/24 09:41) HPI HPI OV - right knee meniscal tear, Discuss sx: Details: Jagdish is a 54 year old male who presents today for an MRI review of his right knee. He was last seen with Sakina Freedman where he reported that he injured the knee while hiking. He has been trying to restart playing tennis but feels that his recent injury is preventing him from doing so. He has sharp pain with twisting. It is both medial and lateral but anterior not posterior. He denies mechanical symptoms. PFSH Medical History Paroxysmal atrial fibrillation Venous insufficiency History of DVT (deep vein thrombosis) Protein S deficiency Surgical History S/P AVR Hx of cardiac cath (~2014) Family History Father No problems noted. Mother No problems noted. Sister HTN (hypertension) Diabetes Social History Housing: House Alcohol intake: never Patient Tobacco Use Status: Never used Tobacco e-Cigarette/Vaping Use: Never Used Second Hand Smoke Exposure: No service: No Current occupational status: retired Current occupational exposures/hazards: No Cognitive needs: No Hearing needs: No Vision needs: Yes Physical Exam Vital Signs: BMI result Body Mass Index 26.8 Extrem Other: On exam he has full range of motion of the right knee. There is a negative Brissa's but mild anterior medial and anterolateral tenderness to palpation. Results Reviewed Results Reviewed: I personally reviewed the MR images. IMPRESSION: 1. Lateral meniscus anterior third peripheral findings are in keeping with old/scarred tear versus peripheral injury. 2. Mild chondromalacia patella. Assessment & Plan Assessment & Plan (1) Right knee meniscal tear: Code(s): S83.206A - Unspecified tear of unspecified meniscus, current injury, right knee, initial encounter Category: Medical Plan: This is a 54-year-old active gentleman with a protein S deficiency and a history of left lower extremity blood clot and is status post [place] atrial ventricular root for severe aortic stenosis related to bicuspid aortic valve. He is on chronic anticoagulation. He is trying to maintain an active lifestyle and his right knee prevents her from doing so. I reviewed his MRI with him. He has a small lateral meniscal injury that is likely partially cause for his symptoms. He also has some mild patellofemoral OA. His symptoms are more meniscal than patellofemoral. I think it would be reasonable for him to begin physical therapy for core and right leg strengthening. Had a right hip replacement about 2 years ago and I think this may be indirectly related to some of that. I discussed this with him. If physical therapy is not helpful we can reconsider surgery. (2) S/P AVR: Comment: s/p [place] AVR for severe related to bicuspid AV 05/2014, 27 mm Code(s): Z95.2 - Presence of prosthetic heart valve Category: Surgical (3) History of DVT (deep vein thrombosis): Code(s): Z86.718 - Personal history of other venous thrombosis and embolism Category: Medical Plan: Plan Orders: Orders PT Evaluation and Treatment Today S83.206A - Unspecified tear of unspecified meniscus, current injury, right knee, initial encounter Coding Level of Care Code Est Pt Level 4 (11953) Diagnoses Right knee meniscal tear S83.206A S/P AVR Z95.2 History of DVT (deep vein thrombosis) Z86.718
== END 2024-06-04 10:27 | disposition home or self-care (01) ==
LOC: HO.HOS 09:37
PROVIDERS: PCP Internal Medicine; Visit Provider Orthopaedic Surgery
DX: S83.206A Unspecified tear of unspecified meniscus, current injury, right knee, initial encounter (principal); Z95.2 Presence of prosthetic heart valve; Z86.718 Personal history of other venous thrombosis and embolism
CPT/HCPCS: 99213

== ENCOUNTER → 2024-06-04 09:37 | Outpatient (BNVA) | payer OTHER, SELFPAY | PROVIDERS: PCP Internal Medicine; Visit Provider Orthopaedic Surgery | DX: S83.206A Unspecified tear of unspecified meniscus, current injury, right knee, initial encounter (principal); I48.0 Paroxysmal atrial fibrillation; D68.59 Other primary thrombophilia; Z79.01 Long term (current) use of anticoagulants; Z51.81 Encounter for therapeutic drug level monitoring; Z95.2 Presence of prosthetic heart valve; Z86.718 Personal history of other venous thrombosis and embolism | CPT/HCPCS: 85610; 99202 ==

== ENCOUNTER 2024-06-04 13:49 | Outpatient (AMB) | payer OTHER, SELFPAY ==
--- NOTE | 2024-06-04 14:01 | MHC.OFFVISCO ---
Intake Intake Visit Reasons: Anticoagulation Advisory Software Engineer Required: No Allergies No Known Allergies Allergy (Verified 06/04/24 13:58) Medication List - Last Reconciled 06/04/24 by Sari Farmer RN cholecalciferol (vitamin D3) 50 mcg PO DAILY simvastatin 10 mg PO DAILY warfarin 10 mg PO DAILY Nursing Note Pt has several dx which puts him at high risk for clotting and bleeding: Protein S deffiency, 3 dvts, AVR mechanical and AFib 2015, HHT (bleeding disorder) he currently has a knee injury which may need intervention *Pt long hx of warfarin, verbalizes good understanding of warfarin and risks involved and nursing home use as well, he comprehend risk of vit k foods as well as foods that potentiate risk of bleeding. He is aware to inform [facility] of any medication or supplemental changes. INR: 3.3 in therapeutic range Medications and supplements reviewed No recent changes in health, diet, medications, or supplements, Denies any signs and symptoms of bleeding or bruising or clotting. Bleeding, bruising, clotting discussed Nutritional guidance given- pt states he will be improving his diet and will eat to balance his INR Activity- pt states he is improving his activity level with walking/ hiking to be able to play tenns again Education completed with patient and education folder given with good verbal understanding Dose: 8mg daily but uses 10mg tablet and cuts off piece/side of tablet. F/U INR: 7-10 days after he receives his 4mg tablets Patient verbalizes understanding of instructions given Anti-Coag Initial Assessment Social Hx Patient Tobacco Use Status: Never used Tobacco alcohol intake: never Alcohol intake frequency: holidays/special occasions only Housing: House current occupation: retiered early current occupational exposures/hazards: No Fall risk assessment: No Falls in past year Cardiovascular Hx: Arrhythmias (AFIB 2015 S/P AVR ), Varicose Veins (VENOUS INSUFFIENCY ) and Other (AVR 2014) 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 Illness/Depression: No Surgeries: 2014 AVR , 2021 HIP, Vein surgery 2023 Left side to flank area, Other: Genetic Disorders: clotting Protein S defiency and HHT -bleeding - father had same disorder Anti-Coag. Education Record Teaching Recipient: Family What is the easiest way to learn: Reading, Listening, Demonstration and Education Packet Advisory Software Engineer Required: No Readiness To Learn: Excellent Teaching Methods: Demonstration, Discussion, Handout and Teach Back Response to Teaching: Verbalize Understanding Education Intervention/Brief Description of Teaching 1. Able to state reason for taking Warfarin: Yes 2. Able to state Pain Management techniques: Yes 3. Able to state action of Warfarin.: Yes Able to state current dose, pill color, how and when Warfarin to be taken: Yes Able to identify signs of bleeding &/or clotting: Yes 4. Able to identify need to keep diet consistent in regard to vitamin K intake: Yes Able to state restriction on alcohol: Yes 5. Able to state need for compliance with PT/INR testing: Yes Describes rationale for carrying ID and wearing Medic Alert bracelet: Yes Patient instructed to monitor for excess bruising or signs/symptoms of clotting or bleeding: Yes 6. Able to state that there are drugs that interact with Warfin: Yes 7. Able to state the need to seek medical attention when illness/injury occur.: Yes Describes the need to avoid activities with high risk of injury: Yes 8. Able to state duration of treatment: Yes 9. Demonstrates understanding of notifying all providers of pending dental surgical, or other invasive procedures: Yes 10. Able to state Home Care instructions Additional comments: will change from 10mg tab to correct dose using 4mg tab for 8mg daily Questionnaires HAS-BLED Does the patient had uncontrolled Hypertension?: No Does the patient have renal disease?: No Does the patient have liver disease?: No Does the patient have a history of stroke?: No Has the patient had major bleeding or predisposition to bleeding?: Yes (has HHT ) Does the patient have labile INRs?: No Is the patient over 65 years of age?: No Is the patient on medications that gives them a predisposition to bleeding?: Yes Does the patient use alcohol?: Yes (very rare but does ) HAS-BLED Score: 3 CHADSVASC Age: <65 Gender: Male Does the patient have a history of CHF?: No Does the patient have a history of Hypertension?: No Does the patient have a history of Stroke/TIA/Thromboembolism?: Yes (several DVT s has genetic Protein S def ) Does the patient have a history of Vascular Disease (prior NM, PAD or aortic plaque)?: Yes (other) Does the patient have a history of Diabetes?: No CHADS VACS Score: 3 Celestina Prediction Score Rsk VTE Active Cancer: No Previous VTE, excluding superficial vein thrombosis: Yes Reduced mobility: No Already known Thrombophilic Condition: Yes (protein S ) With-in last month Trauma and/or Surgery: No Elderly 70 year or older: No Heart and/or Respiratory Failure: No Acute Myocardial infarction and/or Ischemic Stroke: No Acute Infection and/or Rheumatologic Disorder: No Obesity (BMI 30 or greater): No Ongoing Hormonal Treatment: No Score: 6 Celestina Score less than 4; Low Risk of VTE Celestina Score 4 or greater; High Risk of VTE Coding Level of Care Code New Patient Level 2 Diagnoses Current use of anticoagulant therapy Z79.01 Time Spent (min) 75 Comment new pt with multiple risk diagnosis Results AMB INR Fingerstick AMB INR Fingerstick 3.3 Last Edit by Sari Farmer RN on 06/04/24 15:46 manual entry Assessment & Plan Assessment & Plan (1) Current use of anticoagulant therapy: Code(s): Z79.01 - exterminator termite (current) use of anticoagulants Medications: Changed From warfarin 10 mg PO DAILY To warfarin See Protocol 8MG DAILY orally daily;
[2024-06-04 15:51] LABS: Prothrombin Time Whole Bld POC 40.1 sec (11.1-13.5); ~PT, ~INR - Anti Coag Clinic 3.3 (0.9-1.1)
== END 2024-06-04 16:02 | disposition home or self-care (01) ==
LOC: HO.ACS 13:49
PROVIDERS: PCP Internal Medicine; Visit Provider Internal Medicine Medical Oncology
DX: Z79.01 Long term (current) use of anticoagulants (principal)

== ENCOUNTER 2024-06-16 08:56 | Outpatient (AMB) | payer OTHER, SELFPAY ==
[2024-06-16 09:07] LABS: Prothrombin Time Whole Bld POC 29.1 sec (11.1-13.5); ~PT, ~INR - Anti Coag Clinic 2.4 (0.9-1.1)
--- NOTE | 2024-06-16 09:15 | MHC.OFFVISCO ---
Intake Intake Visit Reasons: Anticoagulation Allergies No Known Allergies Allergy (Verified 06/16/24 09:00) Medication List - Last Reconciled 06/16/24 by Tomeka Louis, RN cholecalciferol (vitamin D3) 50 mcg PO DAILY simvastatin 10 mg PO DAILY warfarin 8 mg See Protocol PO DAILY 90 days Nursing Note INR: 2.4 out of therapeutic range of 2.5-3.5 Medications and supplements reviewed. Pt has a new strength warfarin tablet which is 4mg. Patient status: well Medications or supplements: no changes Diet: same Denies any signs and symptoms of bleeding or clotting or unusual bruising Bleeding, bruising, clotting discussed Nutritional guidance given: to avoid greens today Dose: 8mg X 5 days and 10mg X 2 days ( & Sat) F/U INR Date: 1 week?? Patient verbalizing understanding of instructions given. 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 Illness/Depression: No Coding Level of Care Code Est Patient Level 1 Diagnoses Current use of anticoagulant therapy Z79.01 Assessment & Plan Assessment & Plan (1) Current use of anticoagulant therapy: Code(s): Z79.01 - prison (current) use of anticoagulants Category: Medical
== END 2024-06-16 09:29 | disposition home or self-care (01) ==
LOC: HO.ACS 08:56
PROVIDERS: PCP Family Medicine; Visit Provider Internal Medicine Medical Oncology
DX: Z79.01 Long term (current) use of anticoagulants (principal)

== ENCOUNTER → 2024-06-16 08:56 | Outpatient (BNVA) | payer OTHER, SELFPAY | PROVIDERS: PCP Family Medicine; Visit Provider Internal Medicine Medical Oncology | DX: I48.0 Paroxysmal atrial fibrillation (principal); D68.59 Other primary thrombophilia; Z95.2 Presence of prosthetic heart valve; Z86.718 Personal history of other venous thrombosis and embolism; Z51.81 Encounter for therapeutic drug level monitoring; Z79.01 Long term (current) use of anticoagulants | CPT/HCPCS: 85610; 99211 ==

== ENCOUNTER 2024-06-24 09:25 | Outpatient (AMB) | payer OTHER, SELFPAY ==
--- NOTE | 2024-06-24 09:39 | MHC.OFFVISCO ---
Intake Intake Visit Reasons: Anticoagulation Allergies No Known Allergies Allergy (Verified 06/24/24 09:33) Medication List - Last Reconciled 06/24/24 by [place]ia Sauer, RN cholecalciferol (vitamin D3) 50 mcg PO DAILY simvastatin 10 mg PO DAILY warfarin 8 mg See Protocol PO DAILY 90 days Nursing Note INR: 2.5- in therapeutic range of 2.5-3.5 Medications and supplements reviewed No changes in health, diet, medications, or supplements, Denies any signs and symptoms of bleeding or bruising or clotting. Bleeding, bruising, clotting discussed Nutritional guidance given Dose: increase weekly dosing to 10mg x 3, 8mg x 4 F/U INR: 1 week- pt req saturday06/29/24 Patient verbalizes understanding of instructions given no greens for 2 days Anti-Coag Initial Assessment Social Hx Patient Tobacco Use Status: Never used Tobacco alcohol intake: never Alcohol intake frequency: holidays/special occasions only Cardiovascular Hx: Arrhythmias (AFIB 2014 S/P AVR ), Varicose Veins (VENOUS INSUFFIENCY ) and Other (AVR 2014) 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 Illness/Depression: No Coding Level of Care Code Est Patient Level 1 Diagnoses Current use of anticoagulant therapy Z79.01 Assessment & Plan Assessment & Plan (1) Current use of anticoagulant therapy: Code(s): Z79.01 - buttermaker (current) use of anticoagulants Category: Medical
[2024-06-24 09:40] LABS: Prothrombin Time Whole Bld POC 29.6 sec (11.1-13.5); ~PT, ~INR - Anti Coag Clinic 2.5 (0.9-1.1)
== END 2024-06-24 09:50 | disposition home or self-care (01) ==
LOC: HO.ACS 09:25
PROVIDERS: PCP Family Medicine; Visit Provider Internal Medicine Medical Oncology
DX: Z79.01 Long term (current) use of anticoagulants (principal)

== ENCOUNTER → 2024-06-24 09:25 | Outpatient (BNVA) | payer OTHER, SELFPAY | PROVIDERS: PCP Family Medicine; Visit Provider Internal Medicine Medical Oncology | DX: I48.0 Paroxysmal atrial fibrillation (principal); D68.59 Other primary thrombophilia; Z86.718 Personal history of other venous thrombosis and embolism; Z95.2 Presence of prosthetic heart valve; Z51.81 Encounter for therapeutic drug level monitoring; Z79.01 Long term (current) use of anticoagulants | CPT/HCPCS: 85610; 99211 ==

== ENCOUNTER 2024-06-29 07:54 | Outpatient (AMB) | payer OTHER, SELFPAY ==
--- NOTE | 2024-06-29 08:19 | MHC.OFFVISCO ---
Intake Intake Visit Reasons: Anticoagulation Allergies No Known Allergies Allergy (Verified 06/29/24 08:00) Medication List - Last Reconciled 06/29/24 by Sari Farmer RN cholecalciferol (vitamin D3) 50 mcg PO DAILY simvastatin 10 mg PO DAILY warfarin 8 mg See Protocol PO DAILY 90 days Nursing Note INR: 2.7 in therapeutic range 2.5-3.5 Medications and supplements reviewed Will be rehabbing a knee with PT here at [facility] Denies any signs and symptoms of bleeding or bruising or clotting. Bleeding, bruising, clotting discussed Nutritional guidance given Dose: increase dose with goal of INR 3.0 dose 10mg x 4 days/ 8mg x 3days F/U INR: 10 days 07/09/2024 Patient verbalizes understanding of instructions given Anti-Coag Initial Assessment Social Hx Patient Tobacco Use Status: Never used Tobacco alcohol intake: never Alcohol intake frequency: holidays/special occasions only Cardiovascular Hx: Arrhythmias (AFIB 2014 S/P AVR ), Varicose Veins (VENOUS INSUFFIENCY ) and Other (AVR 2014) 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
[2024-06-29 08:38] LABS: Prothrombin Time Whole Bld POC 32.2 sec (11.1-13.5); ~PT, ~INR - Anti Coag Clinic 2.7 (0.9-1.1)
== END 2024-06-29 08:22 | disposition home or self-care (01) ==
LOC: HO.ACS 07:54
PROVIDERS: PCP Family Medicine; Visit Provider Internal Medicine Medical Oncology
DX: Z79.01 Long term (current) use of anticoagulants (principal)

== ENCOUNTER → 2024-06-29 07:54 | Outpatient (BNVA) | payer OTHER, SELFPAY | PROVIDERS: PCP Family Medicine; Visit Provider Internal Medicine Medical Oncology | DX: I48.0 Paroxysmal atrial fibrillation (principal); D68.59 Other primary thrombophilia; Z86.718 Personal history of other venous thrombosis and embolism; Z95.2 Presence of prosthetic heart valve; Z51.81 Encounter for therapeutic drug level monitoring; Z79.01 Long term (current) use of anticoagulants | CPT/HCPCS: 85610; 99211 ==

== ENCOUNTER 2024-06-30 15:35 | Outpatient (AMB) | payer OTHER, SELFPAY ==
--- NOTE | 2024-06-30 16:05 | MHC.PC.OV ---
Vital Signs 06/30/24 16:09 Height 6 ft 1 in Weight 206 lb BMI 27.2 BP 132/60 Blood Pressure Location Lt brachial Position Sitting Respiration 16 Pulse 72 Pulse Source Pulse Oximeter Temp 98.4 F Temp Source Oral Pulse Oximetry (%) 98 Oxygen Delivery Method Room Air Intake Visit Reasons: spots on both hands Intake Note: patient is scheduled for spots on both hands to r/o melanoma Obstetric Anaesthetist Required: No Allergies No Known Allergies Allergy (Verified 06/30/24 16:09) Medication List - Last Reconciled 06/30/24 by Refugio Long MD cholecalciferol (vitamin D3) 50 mcg PO DAILY simvastatin 10 mg PO DAILY 90 days warfarin 8 mg See Protocol PO DAILY 90 days Tobacco use date assessed: 05/26/24 Dental Screening Dental Screen Date: 05/26/24 HPI spots on both hands HPI Details 54 y/o male presents today with complaints of spots on bilateral hands. Labs drawn 05/29/24. Reviewed labs with pt. Fasting glucose of 104. Triglycerides 65. TC 138. LDL 82. HDL 43. Rest of his labs are fine. [facility] Medical History (Updated 06/30/24 @ 16:50 by Salomon Cuenca) Paroxysmal atrial fibrillation Venous insufficiency History of DVT (deep vein thrombosis) Protein S deficiency Surgical History S/P AVR Hx of cardiac cath (~2014) Family History Father No problems noted. Mother No problems noted. Sister HTN (hypertension) Diabetes Social History Housing: House Alcohol intake: never Patient Tobacco Use Status: Never used Tobacco e-Cigarette/Vaping Use: Never Used Second Hand Smoke Exposure: No service: No Current occupational status: retired Current occupation: retiered early Current occupational exposures/hazards: No Cognitive needs: No Hearing needs: No Vision needs: Yes Questionnaire Thrive Questionnaire Date Thrive assessed: 05/26/24 I am a: Patient What is your living situation today?: I have a steady place to live Within the past 12 months, did the food you bought not last and you didn't have the money to get more?: Never true Within the past 12 months, did you worry whether your food would run out before you got money to buy more?: Never true Do you have trouble paying for medicines?: No Do you have trouble getting transportation to medical appointments?: No Do you have trouble paying your heating and electricity bill?: No Do you have trouble taking care of your child, family member or friend?: No Do you have trouble with day-to-day activities such as bathing, preparing meals, shopping, managing finances, etc.?: No Are you currently unemployed and looking for a job?: No Are you interested in more education?: No Please select the resources that you would like help with: None Currently or been in a relationship where the following occur: No concerns reported THRIVE Score: 0 FUNMILAYO-7 AMB Questionnaire FUNMILAYO-7 Date FUNMILAYO - 7 assessed: 05/26/24 Source: Developed by Drs. Luke Romero, Yady Martinez, Ned Orozco and colleagues, with an educational sandee from [employer]. Physical exam (Primary Care) Vital Signs: Last Vital Signs Temp 98.4 F 06/30/24 16:09 Pulse 72 06/30/24 16:09 Resp 16 06/30/24 16:09 BP 132/60 06/30/24 16:09 Pulse Ox 98 06/30/24 16:09 Oxygen Delivery Method Room Air 06/30/24 16:09 BMI result Body Mass Index 27.2 Tobacco/Smoking Status: Tobacco use Status Tobacco use date assessed 05/26/24 06/30/24 16:11 Patient Tobacco Use Status Never used Tobacco 06/30/24 16:11 e-Cigarette/Vaping Use Never Used 06/30/24 16:11 Thrive Assessment: Date of Thrive Assessment Date Thrive assessed 05/26/24 06/30/24 16:11 Currently or been in a relationship where the following occur: No concerns reported Coding Level of Care Code Est Pt Level 4 (53472) Diagnoses Neoplasm of uncertain behavior of skin D48.5 Elevated fasting glucose R73.01 Right knee meniscal tear S83.206A Elevated AST (SGOT) R74.01 Screening for prostate cancer Z12.5 Assessment & Plan Assessment & Plan (1) Neoplasm of uncertain behavior of skin: Code(s): D48.5 - Neoplasm of uncertain behavior of skin Category: Medical Plan: 5mm 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?hand Referred?to?dermatology (2) Elevated fasting glucose: Code(s): R73.01 - Impaired fasting glucose Category: Medical Plan: Mildly?elevated?fasting?blood?sugar Will?have?him?repeat?this?prior?to?his?next?visit?in?August?along?with?an?A1c?test (3) Right knee meniscal tear: Code(s): S83.206A - Unspecified tear of unspecified meniscus, current injury, right knee, initial encounter Category: Medical Plan: Patient?has?just?started?physical?therapy He?will?follow-up?with??Suzan?as?recommended (4) Elevated AST (SGOT): Code(s): R74.01 - Elevation of levels of liver transaminase levels Category: Medical Plan: Mildly?elevated?AST Hydrate?well Will?repeat?this (5) Screening for prostate cancer: Code(s): Z12.5 - Encounter for screening for malignant neoplasm of prostate Category: Medical Plan: PSA?was?within?normal?range.??Continue?annual?screening Orders: Orders Hemoglobin A1c Today R73.01 - Impaired fasting glucose Comprehensive [place]. Panel Fast Today R73.01 - Impaired fasting glucose, Z00.00 - Encounter for general adult medical examination without abnormal findings Referrals Dermatology Referral D48.5 - Neoplasm of uncertain behavior of skin Medications: Changed From simvastatin 10 mg PO DAILY To simvastatin 10 mg PO DAILY 90 days 90 tabs 3RF
[2024-06-30 16:09] VITALS: BP 132/60; PULSE 72; RESP 16; TEMP 36.9; O2SAT 98; BMI 27.2
== END 2024-06-30 16:56 | disposition home or self-care (01) ==
LOC: HO.HMCFM 15:36
PROVIDERS: PCP Family Medicine; Visit Provider Family Medicine
DX: D48.5 Neoplasm of uncertain behavior of skin (principal); R73.01 Impaired fasting glucose; S83.206A Unspecified tear of unspecified meniscus, current injury, right knee, initial encounter; R74.01 Elevation of levels of liver transaminase levels; Z12.5 Encounter for screening for malignant neoplasm of prostate

== ENCOUNTER → 2024-06-30 15:35 | Outpatient (BNVA) | payer OTHER, SELFPAY | PROVIDERS: PCP Family Medicine; Visit Provider Family Medicine | DX: Z13.89 Encounter for screening for other disorder (principal) ==

== ENCOUNTER 2024-07-09 10:38 | Outpatient (AMB) | payer OTHER, SELFPAY ==
[2024-07-09 11:03] LABS: Prothrombin Time Whole Bld POC 34.9 sec (11.1-13.5); ~PT, ~INR - Anti Coag Clinic 2.9 (0.9-1.1)
--- NOTE | 2024-07-09 11:03 | MHC.OFFVISCO ---
Intake Intake Visit Reasons: Anticoagulation Allergies No Known Allergies Allergy (Verified 07/09/24 10:58) Medication List - Last Reconciled 07/09/24 by Tomeka Louis, RN cholecalciferol (vitamin D3) 50 mcg PO DAILY simvastatin 10 mg PO DAILY 90 days warfarin 8 mg See Protocol PO DAILY 90 days Nursing Note INR: 2.9 in therapeutic range of 2.5-3.5 Medications and supplements reviewed No changes in health, diet, medications, or supplements, Denies any signs and symptoms of bleeding or bruising or clotting. Bleeding, bruising, clotting discussed Nutritional guidance given Dose: 10mg X 4 days and 8mg X 3 days (M/W/F) F/U INR: 3 weeks Patient verbalizes understanding of instructions given Anti-Coag Initial Assessment Social Hx Patient Tobacco Use Status: Never used Tobacco alcohol intake: never Alcohol intake frequency: holidays/special occasions only Cardiovascular Hx: Arrhythmias (AFIB 2014 S/P AVR ), Varicose Veins (VENOUS INSUFFIENCY ) and Other (AVR 2014) 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
== END 2024-07-09 11:06 | disposition home or self-care (01) ==
LOC: HO.ACS 10:38
PROVIDERS: PCP Family Medicine; Visit Provider Internal Medicine Medical Oncology
DX: Z79.01 Long term (current) use of anticoagulants (principal)

== ENCOUNTER → 2024-07-09 10:38 | Outpatient (BNVA) | payer OTHER, SELFPAY | PROVIDERS: PCP Family Medicine; Visit Provider Internal Medicine Medical Oncology | DX: I48.0 Paroxysmal atrial fibrillation (principal); D68.59 Other primary thrombophilia; Z95.2 Presence of prosthetic heart valve; Z86.718 Personal history of other venous thrombosis and embolism; Z51.81 Encounter for therapeutic drug level monitoring; Z79.01 Long term (current) use of anticoagulants | CPT/HCPCS: 85610; 99211 ==

== ENCOUNTER 2024-07-29 08:02 | Outpatient (AMB) | payer OTHER, SELFPAY ==
--- NOTE | 2024-07-29 08:12 | MHC.OFFVISCO ---
Intake Intake Visit Reasons: Anticoagulation Allergies No Known Allergies Allergy (Verified 07/29/24 08:07) Medication List - Last Reconciled 07/29/24 by Albania Sauer, RN cholecalciferol (vitamin D3) 50 mcg PO DAILY simvastatin 10 mg PO DAILY 90 days warfarin 8 mg See Protocol PO DAILY 90 days Nursing Note INR 3.8-?? out of therapeutic range of 2.5-3.5 Medications and supplements reviewed Patient status: no c.o, unsure why inr is elev Medications or supplements: no changes Diet: same Denies any signs and symptoms of bleeding or clotting or unusual bruising Bleeding, bruising, clotting discussed Nutritional guidance given: eat greens for 2 days, no reds for 2 days Dose: 6mg today then pt req weekly dose reduction- 10mg x 3, 8mg x 4 F/U INR Date : pt req 2 weeks?? Patient verbalizing understanding of instructions given. 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
[2024-07-29 08:13] LABS: ~PT, ~INR - Anti Coag Clinic 3.8 (0.9-1.1)
== END 2024-07-29 08:23 | disposition home or self-care (01) ==
LOC: HO.ACS 08:02
PROVIDERS: PCP Family Medicine; Visit Provider Internal Medicine Medical Oncology
DX: Z79.01 Long term (current) use of anticoagulants (principal)

== ENCOUNTER → 2024-07-29 08:02 | Outpatient (BNVA) | payer OTHER, SELFPAY | PROVIDERS: PCP Family Medicine; Visit Provider Internal Medicine Medical Oncology | DX: I48.0 Paroxysmal atrial fibrillation (principal); D68.59 Other primary thrombophilia; Z86.718 Personal history of other venous thrombosis and embolism; Z95.2 Presence of prosthetic heart valve; Z51.81 Encounter for therapeutic drug level monitoring; Z79.01 Long term (current) use of anticoagulants | CPT/HCPCS: 85610; 99211 ==

== ENCOUNTER 2024-08-06 09:54 | Outpatient (RCR) | payer OTHER, SELFPAY ==
--- NOTE | 2024-06-30 13:58 | MHC.PT.EP ---
[facility] [place] Office [place] Office [place] Office [address] Conor Murguia [address] [phone] F: [phone] F: [phone] F: [phone] F: [phone] Physical Therapy Plan of Care Date of Evaluation: 06/30/24 Date of Surgery: Diagnosis: RIGHT KNEE MENISCAL TEAR-> Rt LEG STRENGTHENING, CORE STRENGTHENING Assessment: 54 YO MALE REF TO PT W Rt KNEE (MENISCAL AND PFPS) INJURY IN JAN 2024. HE HAS A H/O Rt MELANIE IN 2021, Lt LE VENOUS INSUFFICIENCY-> HE WEARS COMPRESSION GARMENTS KACY LEs AND PELVIS, AF W AVR IN 2014. 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 HE IS INDEP W ADLs, HOWEVER NOTES SXS INCR IN Rt KNEE W ATTEMPTS AT TENNIS, CARRYING OBJECTS AND QUICK MOTIONS.. HE HAS A (+) LLI Rt LE. THE Pt HAS (+) STRENGTH DEFICIT Rt LE, DECR HS FLEXIB- THE Pt IS MOTIVATED FOR PT , TO DEV A HEP FOR STRENGTH AND FLEXIBILITY. WE DISCUSSED THE PT POC AND HE IS AGREEABLE W PROCEEDING. Frequency and Duration: The patient will be seen 2 x WK x 4 WKS Short Term Goals: DECREASE Rt KNEE SXS TO 2-3/10 INITIATE HEP-> CORE / PROX LEs STAB, PROPRIO KACY LEs ASSESS AND TRIAL Lt HEEL LIFT, TO REDUCE LLI , H/O Rt MELANIE Siebel Administrator Goals: Pt INDEP W HEP Pt IMPROVE FUNCT MOB REJI, RESUME TENNIS LESSONS, EVIDENT W IMPROVED LEFI , AT EVAL 56/80 Rt LE STRENGTH IMPROVED BY 1/2-1 GRADE Treatment Plan: Modalities to reduce pain, spasms and effusion. Manual therapy to restore motion and function. Therapeutic exercise to improve strength and flexibility. Neuromuscular re-education for posture and balance. Therapeutic activities to return to functional activities of daily living. Electronically signed by: SAEID CHU,PT Please sign and return to therapist. Thank you for your referral.
--- NOTE | 2024-08-06 13:38 | MHC.PT.DC ---
[facility] [place] Office [place] Office [place] Office [address] Conor Murguia [address] [phone] F: [phone] F: [phone] F: [phone] F: [phone] Physical Therapy Discharge Report Diagnosis: RIGHT KNEE MENISCAL TEAR-> Rt LEG STRENGTHENING, CORE STRENGTHENING Date of Surgery: Date of Evaluation: 06/30/24 Date of Discharge: 08/06/24 Treatments to Date: 9 Cancellations to Date: 0 No Shows to Date: Discharge Status: Achieved Goals Improved Function Independent with HEP Discharge Summary: ALYSON HAS PROGRESSED NICELY IN PT- HE HAS MET HIS PT GOALS AT THIS TIME- HE HAS IMPROVED STRENGTH, STABILITY, 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 HE HAS A MILD LLI Rt DUE TO H/O Rt MELANIE. HE HAS A PROGRESSIVE HEP AND WE ALSO DISCUSSED A RETURN TO TENNIS PROTOCOL TO REDUCE EXACERBATION OF SXS. HIS LEFI AT OR IS 70/80 AND AT [facility], 56/80. Electronically signed by: SAEID CHU,PT Please sign and return to therapist. Thank you for your referral.
== END 2024-08-06 13:39 | disposition home or self-care (01) ==
LOC: HO.PT 09:54
PROVIDERS: PCP Family Medicine; Visit Provider Orthopaedic Surgery
DX: S83.206D Unspecified tear of unspecified meniscus, current injury, right knee, subsequent encounter (principal)
CPT/HCPCS: 97110; 97112; 97162; 97530

== ENCOUNTER 2024-08-10 08:01 | Outpatient (AMB) | payer OTHER, SELFPAY ==
[2024-08-10 08:21] LABS: Prothrombin Time Whole Bld POC 26.6 sec (11.1-13.5); ~PT, ~INR - Anti Coag Clinic 2.2 (0.9-1.1)
--- NOTE | 2024-08-10 08:32 | MHC.OFFVISCO ---
Intake Intake Visit Reasons: Anticoagulation Allergies No Known Allergies Allergy (Verified 08/10/24 08:13) Medication List - Last Reconciled 08/10/24 by Sari Farmer RN cholecalciferol (vitamin D3) 50 mcg PO DAILY simvastatin 10 mg PO DAILY 90 days warfarin 8 mg See Protocol PO DAILY 90 days Nursing Note INR: 2.2 OUT OF therapeutic range- warfarin dose was decreased - will resume previous dose Medications and supplements reviewed No changes in health, diet, medications, or supplements, Denies any signs and symptoms of bleeding or bruising or clotting. Bleeding, bruising, clotting discussed Nutritional guidance given - avoid greens x 3 days - then resume usual diet. may require diet adjustments Dose: resume 10mg x 4 days/8mg x 3days F/U INR: 2 weeks per pt request Patient verbalizes understanding of instructions given Anti-Coag Initial Assessment Social Hx Patient Tobacco Use Status: Never used Tobacco alcohol intake: never Alcohol intake frequency: holidays/special occasions only Cardiovascular Hx: Arrhythmias (AFIB 2014 S/P AVR ), Varicose Veins (VENOUS INSUFFIENCY ) and Other (AVR 2014) 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 Illness/Depression: No Coding Level of Care Code Est Patient Level 1 Diagnoses Current use of anticoagulant therapy Z79.01 Results AMB INR Fingerstick AMB INR Fingerstick 2.2 Last Edit by Sari Farmer RN on 08/10/24 08:22 manual entry Assessment & Plan Assessment & Plan (1) Current use of anticoagulant therapy: Code(s): Z79.01 - FDC (current) use of anticoagulants Category: Medical
== END 2024-08-10 08:39 | disposition home or self-care (01) ==
LOC: HO.ACS 08:01
PROVIDERS: PCP Family Medicine; Visit Provider Internal Medicine Medical Oncology
DX: Z79.01 Long term (current) use of anticoagulants (principal)

== ENCOUNTER → 2024-08-10 08:01 | Outpatient (BNVA) | payer OTHER, SELFPAY | PROVIDERS: PCP Family Medicine; Visit Provider Internal Medicine Medical Oncology | DX: I48.0 Paroxysmal atrial fibrillation (principal); D68.59 Other primary thrombophilia; Z86.718 Personal history of other venous thrombosis and embolism; Z95.2 Presence of prosthetic heart valve; Z79.01 Long term (current) use of anticoagulants; Z51.81 Encounter for therapeutic drug level monitoring | CPT/HCPCS: 85610; 99211 ==

== ENCOUNTER 2024-08-24 08:13 | Outpatient (AMB) | payer OTHER, SELFPAY ==
[2024-08-24 08:23] LABS: Prothrombin Time Whole Bld POC 25.4 sec (11.1-13.5); ~PT, ~INR - Anti Coag Clinic 2.1 (0.9-1.1)
--- NOTE | 2024-08-24 08:32 | MHC.OFFVISCO ---
Intake Intake Visit Reasons: Anticoagulation Allergies No Known Allergies Allergy (Verified 08/24/24 08:14) Medication List - Last Reconciled 08/24/24 by Sari Farmer RN cholecalciferol (vitamin D3) 50 mcg PO DAILY simvastatin 10 mg PO DAILY 90 days warfarin 8 mg See Protocol PO DAILY 90 days Nursing Note INR: 2.1 out of therapeutic range Medications and supplements reviewed Pt has been overly active with home repairs in the heat, sweat, increased protein and water consumption - may have contributed to lower INR Denies any signs and symptoms of bleeding or bruising or clotting. Bleeding, bruising, clotting discussed Nutritional guidance given - avoid greens next 4days, during extreme exertion may need to increase orange and reds to help offset protein Dose: 1omg next 4 days= 10mg 5 days in a row F/U INR: 08/28/24 Patient verbalizes understanding of instructions given Anti-Coag Initial Assessment Social Hx Patient Tobacco Use Status: Never used Tobacco alcohol intake: never Alcohol intake frequency: holidays/special occasions only Cardiovascular Hx: Arrhythmias (AFIB 2014 S/P AVR ), Varicose Veins (VENOUS INSUFFIENCY ) and Other (AVR 2014) 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
== END 2024-08-24 08:37 | disposition home or self-care (01) ==
LOC: HO.ACS 08:13
PROVIDERS: PCP Family Medicine; Visit Provider Internal Medicine Medical Oncology
DX: Z79.01 Long term (current) use of anticoagulants (principal)

== ENCOUNTER → 2024-08-24 08:13 | Outpatient (BNVA) | payer OTHER, SELFPAY | PROVIDERS: PCP Family Medicine; Visit Provider Internal Medicine Medical Oncology | DX: I48.0 Paroxysmal atrial fibrillation (principal); Z86.718 Personal history of other venous thrombosis and embolism; Z95.2 Presence of prosthetic heart valve; Z79.01 Long term (current) use of anticoagulants; Z51.81 Encounter for therapeutic drug level monitoring | CPT/HCPCS: 85610; 99211 ==

== ENCOUNTER 2024-08-25 15:07 | Outpatient (REF) | payer OTHER, SELFPAY ==
--- OUTSIDE RECORDS SUMMARY | 2024-08-25 18:20 | XMS_ITS | Patient Health Record ---
Author Organization [facility] Address [address] [place] [id number] Care Team Providers Care Shop Router Name Role Phone Jefry Farrell MD Primary Care Provider UnavailStefan Moseley Jr Unavailable Reason For Referral No Information Plan Of Treatment No Information Insurance Providers Payer Name Payer Address Payer Phone Subscriber Number Group Number Insured Name Patient Relationship to Insured Coverage Start Date Coverage End Date [facility] [address] [place], [place] [id number] ALYSON GILLETTE Self - patient is the insured
[2024-08-25 18:51] LABS: Estimated Average Glucose 108 mg/dL; Hemoglobin A1C 147.4298 umol/L; Hemoglobin A1c % 5.4 % (<6.0)
[2024-08-25 18:56] LABS: Alanine Aminotransferase 57 U/L (0-40); Albumin Level 4.2 g/dL (3.5-5.0); Alkaline Phosphatase 59 U/L (39-117); Anion Gap 12 (12-20); Aspartate Amino Transferase 49 U/L (5-37); Bilirubin Total 0.6 mg/dL (0.0-1.0); Blood Urea Nitrogen 16 mg/dL (9-16); Calcium 9.2 mg/dL (8.4-10.2); Carbon Dioxide 27 mmol/L (22-29); Chloride 107 mmol/L (96-108); Estimated Glomerular Filt Rate > 60; Glucose Fasting 72 mg/dL (60-99); Potassium 4.2 mmol/L (3.3-5.1); Sodium 142 mmol/L (135-145)
== END 2024-08-25 15:08 | disposition home or self-care (01) ==
LOC: HO.WFDLDS 15:07
PROVIDERS: Visit Provider Family Medicine
DX: Z00.00 Encounter for general adult medical examination without abnormal findings (principal); R73.01 Impaired fasting glucose
CPT/HCPCS: 36415; 80053; 83036

== ENCOUNTER 2024-08-28 08:14 | Outpatient (AMB) | payer OTHER, SELFPAY ==
--- OUTSIDE RECORDS SUMMARY | 2024-08-28 08:19 | XMS_ITS | Patient Health Record ---
Author Organization [facility] Address [address] [place] [id number] Care Team Providers Care Cilnical Scientist Name Role Phone Jefry Farrell MD Primary Care Provider UnavailStefan Moseley Jr Unavailable [phone] Reason For Referral No Information Plan Of Treatment No Information Insurance Providers Payer Name Payer Address Payer Phone Subscriber Number Group Number Insured Name Patient Relationship to Insured Coverage Start Date Coverage End Date [facility] [address] [place], [place] [id number] ALYSON GILLETTE Self - patient is the insured
--- NOTE | 2024-08-28 08:39 | MHC.OFFVISCO ---
Intake Intake Visit Reasons: Anticoagulation Allergies No Known Allergies Allergy (Verified 08/24/24 08:14) Nursing Note INR 2.3 out of therapeutic range2.5-3.5 Medications and supplements reviewed Patient status: feels well Medications or supplements: no changes Diet: has been eating higher protein in diet Denies any signs and symptoms of bleeding or clotting or unusual bruising Bleeding, bruising, clotting discussed Nutritional guidance given: to avoid greens and to focus on foods that raise the INR Dose: 12mg today and tomorrow and then 10mg X 2 then retest F/U INR Date: 4 days?? Patient verbalizing understanding of instructions given. 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
[2024-08-28 08:50] LABS: Prothrombin Time Whole Bld POC 28.2 sec (11.1-13.5); ~PT, ~INR - Anti Coag Clinic 2.3 (0.9-1.1)
== END 2024-08-28 08:42 | disposition home or self-care (01) ==
LOC: HO.ACS 08:14
PROVIDERS: PCP Family Medicine; Visit Provider Internal Medicine Medical Oncology
DX: Z79.01 Long term (current) use of anticoagulants (principal)

== ENCOUNTER → 2024-08-28 08:14 | Outpatient (BNVA) | payer OTHER, SELFPAY | PROVIDERS: PCP Family Medicine; Visit Provider Internal Medicine Medical Oncology | DX: Z79.01 Long term (current) use of anticoagulants (principal) | CPT/HCPCS: 85610; 99211 ==

== ENCOUNTER 2024-08-31 13:54 | Outpatient (AMB) | payer OTHER, SELFPAY ==
--- NOTE | 2024-08-31 14:06 | A.OFFPC_ITS ---
Vital Signs 08/31/24 14:11 Height 6 ft 1 in Weight 199 lb 6 oz BMI 26.3 BP 120/70 Blood Pressure Location Lt brachial Position Sitting Respiration 16 Pulse 92 Pulse Source Pulse Oximeter Temp 98.2 F Temp Source Oral Pulse Oximetry (%) 96 Oxygen Delivery Method Room Air Intake Visit Reasons: CPE with f/u labs and health maint. (KEEP) Intake Note: patient is scheduled for cpe Natural Sciences Professor Required: No Allergies No Known Allergies Allergy (Verified 08/31/24 14:10) Tobacco use date assessed: 08/31/24 Dental Screening Dental Screen Date: 08/31/24 Did you have a dental visit in the last 12 months?: Yes Did you have a dental problem in the last 6 months where you did not have access to dental care?: No Was dental information given to patient?: Patient has dentist HPI CPE with f/u labs and health maint. (KEEP) HPI Details 54 y/o male presents for a CPE with f/u labs and health maint. Labs drawn 08/25/24. Reviewed labs with pt. Elevated liver enzymes - AST 49, ALT 57. A1c 5.4%. Followed by Cardiology and he sees them again in the Fall. [facility] Medical History Paroxysmal atrial fibrillation Venous insufficiency History of DVT (deep vein thrombosis) Protein S deficiency Surgical History S/P AVR Hx of cardiac cath (~2014) Family History Father No problems noted. Mother No problems noted. Sister HTN (hypertension) Diabetes Social History Housing: House Alcohol intake: never Patient Tobacco Use Status: Never used Tobacco e-Cigarette/Vaping Use: Never Used Second Hand Smoke Exposure: No service: No Current occupational status: retired Current occupation: retiered early Current occupational exposures/hazards: No Cognitive needs: No Hearing needs: No Vision needs: Yes Questionnaire PHQ-9 Over the last 2 weeks, how often have you been bothered by any of the following problems? 1. Little interest or pleasure in doing things: not at all 2. Feeling down, depressed, or hopeless: not at all 3. Trouble falling or staying asleep, or sleeping too much: not at all 4. Feeling tired or having little energy: nearly every day 5. Poor appetite or overeating: not at all 6. Feeling bad about yourself - or that you are a failure or have let yourself or your family down: not at all 7. Trouble concentrating on things, such as reading the newspaper or watching television: not at all 8. Moving or speaking so slowly that other people could have noticed. Or the opposite - being so fidgety or restless that you have been moving around a lot more than usual: not at all 9. Thoughts that you would be better off or of hurting yourself in some way: not at all Total score: 3 Depression Screening Interpretation: Negative Depression Screening Done: Yes 70076 - PHQ-9 Billing: Yes Source: Developed by Drs. Luke Romero, Yady Mratinez, Ned Orozco and colleagues, with an educational sandee from [employer]. Thrive Questionnaire Date Thrive assessed: 08/31/24 I am a: Patient What is your living situation today?: I have a steady place to live Within the past 12 months, did the food you bought not last and you didn't have the money to get more?: Never true Within the past 12 months, did you worry whether your food would run out before you got money to buy more?: Never true Do you have trouble paying for medicines?: No Do you have trouble getting transportation to medical appointments?: No Do you have trouble paying your heating and electricity bill?: No Do you have trouble taking care of your child, family member or friend?: No Do you have trouble with day-to-day activities such as bathing, preparing meals, shopping, managing finances, etc.?: No Are you currently unemployed and looking for a job?: No Are you interested in more education?: No Please select the resources that you would like help with: None Currently or been in a relationship where the following occur: No concerns reported THRIVE Score: 0 AUDIT C Alcohol Use Questionnaire (AUDIT-C) 1. How often do you have a drink containing alcohol?: Never Total Score: 0 Score Reviewed/Action Taken: Yes FUNMILAYO-7 AMB Questionnaire FUNMILAYO-7 Date FUNMILAYO - 7 assessed: 08/31/24 Feeling nervous, anxious, or on edge: 0 = Not at all Not being able to stop or control worryin = Not at all Worrying too much about different things: 0 = Not at all Trouble relaxin = Not at all Being so restless that it is hard to sit still: 0 = Not at all Becoming easily annoyed or irritable: 0 = Not at all Feeling afraid as if something awful might happen: 0 = Not at all Total FUNMILAYO-7 score (0-4 normal; 5-9 mild; 10-14 moderate; 15-21 severe): 0 Source: Developed by Drs. Luke Romero, Yady Martinez, Ned Orozco and colleagues, with an educational sandee from [employer]. FUNMILAYO-7 Assessment Billing FUNMILAYO-7 Assessment Tool: FUNMILAYO-7 Assessment 72765 Review of Systems Const Denies chills, Denies fatigue, Denies fever(s), Denies headache(s) and Denies weakness Eyes Denies change in vision ENT Denies dizziness, Denies headache(s), Denies hearing loss, Denies nasal congestion, Denies sinus pain, Denies sinus pressure and Denies sore throat Card Denies chest pain, Denies lightheadedness, Denies dyspnea and Denies other (palpitations) Resp Denies cough, Denies dyspnea and Denies wheezing GI Denies abdominal pain, Denies melena, Denies hematochezia, Denies change in bowel habits, Denies dyspepsia and Denies nausea Denies hematuria and Denies dysuria Musc Denies abnormal gait, Denies myalgias, Denies arthralgias, Denies numbness and Denies tingling Skin/Breast Denies rash, Denies unusual bruising and Denies wounds Neuro Denies abnormal gait, Denies dizziness, Denies headache(s), Denies memory loss, Denies numbness, Denies Sensory deficit (Neuro), Denies tingling and Denies weakness Psych Denies anxiety, Denies depression and Denies memory loss Endo Denies cold intolerance, Denies fatigue, Denies heat intolerance, Denies polydipsia and Denies polyuria [place]ington/Lymph Denies easy bleeding and Denies easy bruising Aller/Immun Denies wheezing Physical exam (Primary Care) Vital Signs: Last Vital Signs Temp 98.2 F 08/31/24 14:11 Pulse 92 08/31/24 14:11 Resp 16 08/31/24 14:11 BP 120/70 08/31/24 14:11 Pulse Ox 96 08/31/24 14:11 Oxygen Delivery Method Room Air 08/31/24 14:11 BMI result Body Mass Index 26.3 Tobacco/Smoking Status: Tobacco use Status Tobacco use date assessed 08/31/24 08/31/24 14:14 Patient Tobacco Use Status Never used Tobacco 08/31/24 14:14 e-Cigarette/Vaping Use Never Used 08/31/24 14:14 PHQ-9: PHQ-9 Score PHQ-9: Total score 3 08/31/24 14:14 Depression Screening Interpretation: Negative Thrive Assessment: Date of Thrive Assessment Date Thrive assessed 08/31/24 08/31/24 14:14 Currently or been in a relationship where the following occur: No concerns reported Const General: no acute distress, well developed, alert and awake Nutritional Appearance: well nourished Orientation/consciousness: patient oriented x3 HENMT Head: Yes normocephalic and Yes atraumatic Ears: hearing grossly normal bilaterally and TM's normal bilaterally General nose exam: Normal external nose present and Normal nares present Mouth: Normal oral and palatal mucosa present and moist mucous membranes Teeth and gingiva: dentition normal Throat: Yes posterior oropharynx normal Eyes General: appearance normal, both eyes and all related structures Pupils: Equal, round and reactive pupils present and Pupil accommodation reflex normal EOM: EOMs intact bilaterally Neck Neck: Yes normal visual inspection, Yes no lymphadenopathy and Yes trachea midline Thyroid: Thyroid normal Carotids: no bruits Lymphatic: no lymphadenopathy noted Chest Chest palpation & inspection: normal inspection of the chest Resp Effort & Inspection: normal respiratory effort Auscultation: clear to auscultation bilaterally Cardio Rate: regular rate Rhythm: regular rhythm Heart sounds: S1 normal heart sound present, S2 normal heart sound present, no gallops, no murmurs and no rubs Bruits: no abdominal aortic bruits and no carotid bruits GI Palpation (GI): No Abdominal aortic bruit present, Soft to palpation, nontender, No hepatosplenomegaly present and No Rebound tenderness present Auscultation: normal bowel sounds General: Yes no CVA tenderness Back/Spine/Pelvis Back: no CVA tenderness Cervical Spine: cervical ROM normal and No Cervical spine tenderness Thoracic/Lumbar Spine: thoraco-lumbar ROM normal, No pain with thoraco-lumbar ROM, No thoracic spinal tenderness and No lumbar spinal tenderness Skin Lesions: no lesions Rashes: no rashes Trauma: no lacerations or abrasions Wounds: no wounds Nails: normal Neuro General: patient oriented x3 Cranial nerves: Yes Equal, round and reactive pupils present Cognition (Neuro): normal cognition Gait exam (Neuro): Normal gait present Motor exam (neuro): 5/5 motor strength present throughout Sensory Exam: No Sensory deficit (Neuro) Deep tendon reflexes (DTR's): Right patellar reflex intensity grade: 2+ and Left patellar reflex intensity grade: 2+ Extrem General: Yes normal to inspection and No edema Psych Appearance: grossly normal Affect: normal affect Attitude: cooperative Thought process: Normal thought process present Coding Level of Care Code Est Pt Prev Care 40-64y(74074) Diagnoses Adult general medical exam Z00.00 Paroxysmal atrial fibrillation I48.0 History of DVT (deep vein thrombosis) Z86.718 Elevated fasting glucose R73.01 Elevated liver enzymes R74.8 HHT (hereditary hemorrhagic telangiectasia) I78.0 Screening for prostate cancer Z12.5 Screening for colon cancer Z12.11 Proctalgia K62.89 Additional Codes FUNMILAYO-7 Assessment Billing - FUNMILAYO-7 Assessment Tool: FUNMILAYO-7 Assessment 56369 ([id number]) PHQ-9 - 52334 - PHQ-9 Billing: Yes ([id number]) Assessment & Plan Assessment & Plan (1) Adult general medical exam: Code(s): Z00.00 - Encounter for general adult medical examination without abnormal findi ngs Category: Medical Plan: 54-year-old?male?presents?for?complete?physical?exam Stable (2) Paroxysmal atrial fibrillation: Code(s): I48.0 - Paroxysmal atrial fibrillation Category: Medical Plan: Currently?in?regular?rhythm He?is?anticoagulated?and?working?anticoagulation?clinic?to?get?INR?within?therap eutic?range Has?follow-up?appointment?with?cardiology?in?November (3) History of DVT (deep vein thrombosis): Code(s): Z86.718 - Personal history of other venous thrombosis and embolism Category: Medical Plan: Stable He?is?on?warfarin They?are?working?to?get?warfarin?within?therapeutic?range Follow-up?with?anticoagulation?clinic (4) Elevated fasting glucose: Code(s): R73.01 - Impaired fasting glucose Category: Medical Plan: Improved?and?A1c?is?within?normal?range We?will?continue?to?monitor (5) Elevated liver enzymes: Code(s): R74.8 - Abnormal levels of other serum enzymes Category: Medical Plan: Mildly?elevated?liver?enzymes Checking?liver?ultrasound?and?will?follow-up?with?patient (6) HHT (hereditary hemorrhagic telangiectasia): Code(s): I78.0 - Hereditary hemorrhagic telangiectasia Category: Medical Plan: History?of?HHT Stable (7) Screening for prostate cancer: Code(s): Z12.5 - Encounter for screening for malignant neoplasm of prostate Category: Medical Plan: PSA?is?within?normal?range (8) Screening for colon cancer: Code(s): Z12.11 - Encounter for screening for malignant neoplasm of colon Category: Medical Plan: Followed?by?Dr. Acosta He?is?due?for?5?year?follow-up?appointment - referred He?can?also?discuss?proctalgia (9) Proctalgia: Code(s): K62.89 - Other specified diseases of anus and rectum Category: Medical Plan: Hydrate?well Can?use?magnesium?NSAIDs?with?caution Orders: Orders US abdomen quinteros w elastography Today R74.01 - Elevation of levels of liver transaminase levels
[2024-08-31 14:11] VITALS: BP 120/70; PULSE 92; RESP 16; TEMP 36.8; O2SAT 96; BMI 26.3
--- OUTSIDE RECORDS SUMMARY | 2024-08-31 14:29 | XMS_ITS | Patient Health Record ---
Author Organization [facility] Address [address] [place] [id number] Care Team Providers Care Software Quality Analyst Name Role Phone Jefry Farrell MD Primary Care Provider UnavailStefan Moseley Jr Unavailable [phone] Reason For Referral No Information Plan Of Treatment No Information Insurance Providers Payer Name Payer Address Payer Phone Subscriber Number Group Number Insured Name Patient Relationship to Insured Coverage Start Date Coverage End Date [facility] [address] [place], [place] [id number] [phone] [id number] 001 ALYSON GILLETTE Self - patient is the insured
== END 2024-08-31 14:53 | disposition home or self-care (01) ==
LOC: HO.HMCFM 13:55
PROVIDERS: PCP Family Medicine; Visit Provider Family Medicine
DX: Z00.00 Encounter for general adult medical examination without abnormal findings (principal); I48.0 Paroxysmal atrial fibrillation; Z86.718 Personal history of other venous thrombosis and embolism; R73.01 Impaired fasting glucose; R74.8 Abnormal levels of other serum enzymes; I78.0 Hereditary hemorrhagic telangiectasia; Z12.5 Encounter for screening for malignant neoplasm of prostate; Z12.11 Encounter for screening for malignant neoplasm of colon; K62.89 Other specified diseases of anus and rectum

== ENCOUNTER → 2024-08-31 13:54 | Outpatient (BNVA) | payer OTHER, SELFPAY | PROVIDERS: PCP Family Medicine; Visit Provider Family Medicine | DX: Z00.00 Encounter for general adult medical examination without abnormal findings (principal); I48.0 Paroxysmal atrial fibrillation; R73.01 Impaired fasting glucose; R74.8 Abnormal levels of other serum enzymes; I78.0 Hereditary hemorrhagic telangiectasia; K62.89 Other specified diseases of anus and rectum; Z86.718 Personal history of other venous thrombosis and embolism | CPT/HCPCS: 96127 ==

== ENCOUNTER 2024-09-01 09:42 | Outpatient (AMB) | payer OTHER, SELFPAY ==
[2024-09-01 09:50] LABS: Prothrombin Time Whole Bld POC 43.5 sec (11.1-13.5); ~PT, ~INR - Anti Coag Clinic 3.6 (0.9-1.1)
--- NOTE | 2024-09-01 10:03 | MHC.OFFVISCO ---
Intake Intake Visit Reasons: Anticoagulation Allergies No Known Allergies Allergy (Verified 09/01/24 09:43) Medication List - Last Reconciled 09/01/24 by Tomeka Louis, RN cholecalciferol (vitamin D3) 50 mcg PO DAILY simvastatin 10 mg PO DAILY 90 days warfarin 8 mg See Protocol PO DAILY 90 days Nursing Note INR: 3.6 out of therapeutic range of 2.5-3.5 previous 3 INR results have been subtherapeutic, 2.3, 2.1, 2.2. Pt has increased his protein intake and activity which can lower the INR Medications and supplements reviewed No changes in health, diet, medications, or supplements, Denies any signs and symptoms of bleeding or bruising or clotting. Bleeding, bruising, clotting discussed Nutritional guidance given to have a serving of greens today. Dose: weekly dose increased to 10mg daily F/U INR: 09/11/24 Patient verbalizes understanding of instructions given Anti-Coag Initial Assessment Social Hx Patient Tobacco Use Status: Never used Tobacco alcohol intake: never Alcohol intake frequency: holidays/special occasions only Cardiovascular Hx: Arrhythmias (AFIB 2014 S/P AVR ), Varicose Veins (VENOUS INSUFFIENCY ) and Other (AVR 2014) 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 Illness/Depression: No Coding Level of Care Code Est Patient Level 1 Diagnoses Current use of anticoagulant therapy Z79.01 Results AMB INR Fingerstick AMB INR Fingerstick 3.6 Last Edit by Tomeka Louis RN on 09/01/24 09:49 interface delay Assessment & Plan Assessment & Plan (1) Current use of anticoagulant therapy: Code(s): Z79.01 - [facility] (current) use of anticoagulants Category: Medical
--- OUTSIDE RECORDS SUMMARY | 2024-09-01 10:30 | XMS_ITS | Patient Health Record ---
Author Organization [facility] Address [address] [place] [id number] Care Team Providers Care Continuous Conveyor Screen Drier Name Role Phone Jefry Farrell MD Primary Care Provider UnavailStefan Moseley Jr Unavailable [phone] Reason For Referral No Information Plan Of Treatment No Information Insurance Providers Payer Name Payer Address Payer Phone Subscriber Number Group Number Insured Name Patient Relationship to Insured Coverage Start Date Coverage End Date [facility] [address] [place], [place] [id number] [phone] [id number] ALYSON GILLETTE Self - patient is the insured
== END 2024-09-01 10:08 | disposition home or self-care (01) ==
LOC: HO.ACS 09:42
PROVIDERS: PCP Family Medicine; Visit Provider Internal Medicine Medical Oncology
DX: Z79.01 Long term (current) use of anticoagulants (principal)

== ENCOUNTER → 2024-09-01 09:42 | Outpatient (BNVA) | payer OTHER, SELFPAY | PROVIDERS: PCP Family Medicine; Visit Provider Internal Medicine Medical Oncology | DX: Z79.01 Long term (current) use of anticoagulants (principal) | CPT/HCPCS: 85610; 99211 ==

== ENCOUNTER 2024-09-11 14:27 | Outpatient (AMB) | payer OTHER, SELFPAY ==
--- OUTSIDE RECORDS SUMMARY | 2024-09-11 14:29 | XMS_ITS | Patient Health Record ---
Author Organization [facility] Address [address] [place] [phone] Care Team Providers Care Sonography Technologist Name Role Phone Jefry Farrell MD Primary Care Provider UnavailStefan Moseley Jr Unavailable Reason For Referral No Information Plan Of Treatment No Information Insurance Providers Payer Name Payer Address Payer Phone Subscriber Number Group Number Insured Name Patient Relationship to Insured Coverage Start Date Coverage End Date [facility] [address] [place], [place] [id number] ALYSON GILLETTE Self - patient is the insured
[2024-09-11 14:32] LABS: Prothrombin Time Whole Bld POC 45.8 sec (11.1-13.5); ~PT, ~INR - Anti Coag Clinic 3.8 (0.9-1.1)
--- NOTE | 2024-09-11 14:35 | MHC.OFFVISCO ---
Intake Intake Visit Reasons: Anticoagulation Allergies No Known Allergies Allergy (Verified 09/11/24 14:27) Medication List - Last Reconciled 09/11/24 by Tomeka Louis, RN cholecalciferol (vitamin D3) 50 mcg PO DAILY simvastatin 10 mg PO DAILY 90 days warfarin 8 mg See Protocol PO DAILY 90 days Nursing Note INR: 3.8 in therapeutic range of 2.5-3.5 Medications and supplements reviewed No changes in health, diet, medications, or supplements, Denies any signs and symptoms of bleeding or bruising or clotting. Bleeding, bruising, clotting discussed Nutritional guidance given to have a serving of greens today Dose: 10mg daily F/U INR: 2 weeks Patient verbalizes understanding of instructions given Anti-Coag Initial Assessment Social Hx Patient Tobacco Use Status: Never used Tobacco alcohol intake: never Alcohol intake frequency: holidays/special occasions only Cardiovascular Hx: Arrhythmias (AFIB 2014 S/P AVR ), Varicose Veins (VENOUS INSUFFIENCY ) and Other (AVR 2014) 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
== END 2024-09-11 14:39 | disposition home or self-care (01) ==
LOC: HO.ACS 14:27
PROVIDERS: PCP Family Medicine; Visit Provider Internal Medicine Medical Oncology
DX: Z79.01 Long term (current) use of anticoagulants (principal)

== ENCOUNTER → 2024-09-11 14:27 | Outpatient (BNVA) | payer OTHER, SELFPAY | PROVIDERS: PCP Family Medicine; Visit Provider Internal Medicine Medical Oncology | DX: I48.0 Paroxysmal atrial fibrillation (principal); D68.59 Other primary thrombophilia; Z86.718 Personal history of other venous thrombosis and embolism; Z95.2 Presence of prosthetic heart valve; Z79.01 Long term (current) use of anticoagulants; Z51.81 Encounter for therapeutic drug level monitoring | CPT/HCPCS: 85610; 99211 ==

== ENCOUNTER 2024-09-25 08:19 | Outpatient (AMB) | payer OTHER, SELFPAY ==
--- OUTSIDE RECORDS SUMMARY | 2024-09-25 08:27 | XMS_ITS | Patient Health Record ---
[facility] Organization [facility] Address [address] [place] [address] Care Team Providers Care Box Stamper Name Role Phone Bud (RETIRED) Jefry LAWSON Primary Care Provide r Unavailable Stefan Glover Jr Unavailable Reason For Referral No Information Plan Of Treatment No Information Insurance Providers Payer Name Payer Address Payer Phone Subscriber Number Group Number Insured Name Patient Relationship to Insured Coverage Start Date Coverage End Date [facility] [address] [place], [place] [id number] ALYSON GILLETTE Self - patient is the insured
--- OUTSIDE RECORDS SUMMARY | 2024-09-25 08:27 | XMS_ITS | Clinical Summary ---
Author Organization [facility] Address [address] [place] [address] [place] [address] Phone Care Team Providers Care Special Education Professor Name Role Phone Refugio Long MD Primary Care Provider Allergies No known active allergies Medications warfarin (COUMADIN) 10 MG tabletIndicatio ns:To hold 10/6 and 10/7 Take 10 mg by mouth daily. Indications: To hold 10/6 and 10/7 Active simvastatin (ZOCOR) 10 MG tablet Take 10 mg by mouth nightly at bedtime. Active aspirin 81 MG EC tablet Take 81 mg by mouth daily. Active cholecalciferol (VITAMIN D3) 2,000 unit capsule Take 2,000 Units by mouth daily. Active cephalexin (KEFLEX) 500 MG capsule Take 1 capsule (500 mg total) by mouth 2 (two) times a day for 10 days. 20 capsule 09/22/2024 Active Encounters Date Type Department Care Team Description 09/22/2024 7:00 PM EDT [facility] Visit [facility] at [address] [address] Isabel Fontaine, MALLORIE Cellulitis of left upper extremity (Primary Dx) from Last 3 Months Social History Tobacco Use Types Packs/Day Years Used Date Smoking Tobacco: Never Smokeless Tobacco: Never Alcohol Use Standard Drinks/Week Comments Not Currently 0 (1 standard drink = 0.6 oz pur e alcohol) very rare Education Answer Date Recorded Are you interested in more education? Not on duglas e 07/14/2022 Are you concerned about learning? Not on file 07/14/2022 No 07/14/2022 No 07/14/2022 Digital Access Answer Date Recorded No 07/29/2022 No 07/29/2022 No 07/29/2022 Reliable internet access at home? Not on file 07/29/2022 Device with a working camera? Not on file Sex and Gender Information Value Date Recorded Sex Assigned at Not on file Legal Sex Male 7:04 PM EST Gender Identity Not on file Sexual Orientation Not on file Last Filed Vital Signs Vital Sign Reading Time Taken Comments Blood Pressure 128/85 09/22/2024 7:02 PM EDT Pulse 81 09/22/2024 7:02 PM EDT Temperature 36.9 C (98.5 F) 09/22/2024 7:02 PM EDT Respiratory Rate 16 09/22/2024 7:02 PM EDT Oxygen Saturation 99% 09/22/2024 7:02 PM EDT Inhaled Oxygen Concentration - - Weight 92.5 kg (204 lb) 03/13/2020 2:08 PM EST Height 71 cm (2' 3.95 ) 03/13/2020 2:08 PM EST Body Mass Index 183.56 03/13/2020 2:08 PM EST Plan of Treatment Health Maintenance Due Date Last Done Comments Adult Td,Tdap Booster 1970 LIPID PANEL 1970 DEPRESSION SCREENING 1980 HEPATITIS C SCREENING 01/13/1986 HIV ONE-TIME SCREENING (18-65 YEARS) 01/13/1986 COLOGUARD 01/13/2013 FIT TEST 01/13/2013 FOBT 01/13/2013 SIGMOIDOSCOPY 01/13/2013 VIRTUAL COLONOSCOPY 01/13/2013 PNEUMOCOCCAL VACCINES (50+ years) (1 of 1 - PCV) 01/13/2018 ZOSTER VACCINES (1 of 2) 01/13/2018 COLONOSCOPY 12/08/2029 12/09/2019 COLORECTAL CANCER SCREENING 12/08/2029 SMOKING STATUS SCREENING (Once After 26 Yrs) Completed 12/09/2019 COVID-19 VACCINE Completed 03/10/2024, , 03/09/2022, Additional history exists HEPATITIS A VACCINES Aged Out No long er eligible based on patient's age to complete this topic HIB VACCINES Aged Out No longer eligi ble based on patient's age to complete this topic MENINGOCOCCAL VACCINES (ACWY) Aged Out No longer eligible based on patient's age to complete this topic MENINGOCOCCAL VACCINES (B) Aged Out N o longer eligible based on patient's age to complete this topic Medical Devices Implanted Type Area Health Counselor Device Identifier Shelf Expiration Date Model / Serial / Lot Clip Hemostasis 360deg 235cm Resolution 360 Latex Free 2.8mm Channel Bx/20ea - [id number] Implanted:Qty: 1 on 12/09/2019 by Lola Le MD at [facility] [employer] STEVE [id number] / / Procedures Procedure Name Priority Date/Time Associated Diagnosis Comments ENDOSCOPY, COLON 12/09/2019 9:48 AM EDT from Last 3 Months or Most Recently Relevant to Health Maintenance Results * ENDOSCOPY, COLON (12/09/2019 9:48 AM EDT) Narrative Transcriptions Lola Le MD - 12/09/2019 9:48 AM EDT Patient Name: Jagdish Lily Attending MD:: LOLA LE MD Procedure Date: 12/09/2019 9:48 AM Date of : 1970 Age: 49 Admit Type: Outpatient Gender: Male Room: [place] [address] Referring MD: NATALIA PANIAGUA Exam Type: Colonoscopy Indications: Screening for colorectal malignant neoplasm, This is the patient's first colonoscopy Medications: Monitored Anesthesia Care Procedure: Informed consent was obtained from the patient after discussion of the indications, limitations, alternatives, benefits, and risks of the procedure. Risks specifically discussed include but are not limited to medication reactions, missed lesions, bleeding, perforation, or the need for emergentsurgery. Throughout the procedure, the patient's bloodpressure, pulse, end-tidal CO2, and oxygen saturations were monitored continuously. The Olympus adult variable colonoscope [id number] #2was introduced through the anus and advanced to the terminal ileum, with identification of theappendiceal orifice and IC valve. The colonoscopy was performed without difficulty. The patient tolerated theprocedure fairly well. The quality of the bowel preparationwas good. Complications: No immediate complications. Estimated blood loss: Minimal. Findings: The perianal and digital rectal examinations were normal. Pertinent negatives include normal sphincter tone. A 5 mm polyp was found at 25 cm proximal to theanus. The polyp was sessile. The polyp was removed with a cold snare. Resection and retrieval were complete. Estimated blood loss was minimal. To preventbleeding after the polypectomy, one hemostatic clip was successfully placed (MR conditional). There was no bleeding at the end of the procedure. Retroflexion in the right colon was performed. The exam was otherwise without abnormality on direct and retroflexion views. A few small-mouthed diverticula were found in the sigmoid colon. Impression: - One 5 mm polyp at 25 cm proximal to the anus,removed with a cold snare. Resected and retrieved. Clip (MR conditional) was placed. - The examination was otherwise normal on direct and retroflexion views. Recommendation: - I will send results of your biopsy to you and your referring physician or provider. If you do notreceive notification within 3 weeks, please call ouroffice. - If the pathology report reveals adenomatoustissue, then repeat the colonoscopy for surveillance basedon pathology results in 5 years. - Resume Coumadin (warfarin) at prior dose today.Refer to managing physician for further adjustment oftherapy. LOLA LE MD 12/09/2019 10:15:24 AM This report has been signed electronically. Number of Addenda: 0 Note Initiated On: 12/09/2019 9:48 AM Procedure Code(s): --- Professional --- 34049, Colonoscopy, flexible; with removal of tumor(s), polyp(s), or other lesion(s) by snare technique --- Technical --- 77485, Colonoscopy, flexible; with removal of tumor(s), polyp(s), or other lesion(s) by snare technique Diagnosis Code(s): --- Professional --- Z12.11, Encounter for screening for malignantneoplasm of colon D12.6, Benign neoplasm of colon, unspecified --- Technical --- Z12.11, Encounter for screening for malignantneoplasm of colon D12.6, Benign neoplasm of colon, unspecified CPT copyright 2018 [employer] [place] [employer]. All rights reserved. The codes documented in this report are preliminary and upon predatory game hunter reviewmay be revised to meet current compliance requirements. Procedure Date: 12/09/2019 9:48:[address] [place] [id number] Jefry Paniagua MD GI PROCEDURE ORDERABLES Final Result from Last 3 Months or Most Recently Relevant to Health Maintenance Insurance [facility] Advance Directives For more information, please contact: [phone] (9AM - 5PM [facility], Saturday-Saturday) Documents on File Type Date Recorded Patient Manager Rfid Expl anation Durable Power of Loftsman/Woman 12/10/2019 11:03 AM Care Teams Special Education Professor Relationship Specialty Start Date End Date Refugio Long MD [address] [place] [id number] PCP - General Family Medicine 09/22/24 Additional Source Comments The information contained in this document represents components of the legal health record. It is not the complete legal health record.[facility]
[2024-09-25 08:29] LABS: Prothrombin Time Whole Bld POC 33.4 sec (11.1-13.5); ~PT, ~INR - Anti Coag Clinic 2.8 (0.9-1.1)
--- NOTE | 2024-09-25 08:29 | MHC.OFFVISCO ---
Intake Intake Visit Reasons: Anticoagulation Allergies No Known Allergies Allergy (Verified 09/25/24 08:19) Nursing Note INR: 2.8- in therapeutic range of 2.5-3.5 Medications and supplements reviewed- pt on cephalexin 500mg bid x 10 days for hand wound- will raise inr per micromedex No changes in health, diet, medications, or supplements, Denies any signs and symptoms of bleeding or bruising or clotting. Bleeding, bruising, clotting discussed Nutritional guidance given - eat greens while on antibiotics Dose: 10mg x 7 F/U INR: 1 week Patient verbalizes understanding of instructions given pt aware antibiotic can raise inr, pt ref dose reduction and would rather eat greens to lower pt states increased exercise and increased protein which both can lower inr Anti-Coag Initial Assessment Social Hx Patient Tobacco Use Status: Never used Tobacco alcohol intake: never Alcohol intake frequency: holidays/special occasions only Cardiovascular Hx: Arrhythmias (AFIB 2014 S/P AVR ), Varicose Veins (VENOUS INSUFFIENCY ) and Other (AVR 2014) 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 Illness/Depression: No Coding Level of Care Code Est Patient Level 1 Diagnoses Current use of anticoagulant therapy Z79.01 Assessment & Plan Assessment & Plan (1) Current use of anticoagulant therapy: Code(s): Z79.01 - alf (current) use of anticoagulants Category: Medical
== END 2024-09-25 08:37 | disposition home or self-care (01) ==
LOC: HO.ACS 08:19
PROVIDERS: PCP Family Medicine; Visit Provider Internal Medicine Medical Oncology
DX: Z79.01 Long term (current) use of anticoagulants (principal)

== ENCOUNTER → 2024-09-25 08:19 | Outpatient (BNVA) | payer OTHER, SELFPAY | PROVIDERS: PCP Family Medicine; Visit Provider Internal Medicine Medical Oncology | DX: I48.0 Paroxysmal atrial fibrillation (principal); D68.59 Other primary thrombophilia; Z86.718 Personal history of other venous thrombosis and embolism; Z95.2 Presence of prosthetic heart valve; Z79.01 Long term (current) use of anticoagulants; Z51.81 Encounter for therapeutic drug level monitoring | CPT/HCPCS: 85610; 99211 ==

== ENCOUNTER 2024-10-02 09:00 | Outpatient (AMB) | payer OTHER, SELFPAY ==
[2024-10-02 09:13] LABS: Prothrombin Time Whole Bld POC 24.5 sec (11.1-13.5); ~PT, ~INR - Anti Coag Clinic 2.0 (0.9-1.1)
--- OUTSIDE RECORDS SUMMARY | 2024-10-02 09:16 | XMS_ITS | Patient Health Record ---
Author Organization [facility] Address [address] [place] [address] Care Team Providers Care Probate Clerk Name Role Phone Bud (RETIRED) Jefry LAWSON Primary Care Provide r Unavailable Stefan Glover Jr Unavailable [phone] Reason For Referral No Information Plan Of Treatment No Information Insurance Providers Payer Name Payer Address Payer Phone Subscriber Number Group Number Insured Name Patient Relationship to Insured Coverage Start Date Coverage End Date [facility] [address] [place], [place] [id number] [phone] [id number] 001 ALYSON GILLETTE Self - patient is the insured
--- OUTSIDE RECORDS SUMMARY | 2024-10-02 09:16 | XMS_ITS | Clinical Summary ---
Author Organization [facility] Address [address] [place] [address] [place] [address] Phone Care Team Providers Care Chummer Name Role Phone Refugio Long MD Primary [...] Office Visit [facility] at [address] [address] Isabel Fontaine, MALLORIE Cellulitis of left upper [...] this topic Medical Devices Implanted Type Area Roundhouse Worker Device Identifier Shelf Expiration Date Model / Serial / Lot Clip Hemostasis 360deg 235cm Resolution 360 Latex Free 2.8mm Channel Bx/20ea - [id number] Implanted:Qty: 1 on 12/09/2019 by Lola Le MD at [facility] [employer] STEVE [id number] / / Procedures Procedure Name Priority Date/Time Associated Diagnosis Comments ENDOSCOPY, COLON 12/09/2019 9:48 AM EDT from Last 3 Months or Most Recently Relevant to Health Maintenance Results * ENDOSCOPY, COLON (12/09/2019 9:48 AM EDT) Narrative Transcriptions Lola Le MD - 12/09/2019 9:48 AM EDT Patient Name: Jagdish Lily Attending MD:: OLLA LE MD Procedure Date: 12/09/2019 9:48 AM Date of : 1970 Age: 49 Admit Type: Outpatient Gender: Male Room: [place] [address] Referring MD: NATALIA PANIAGUA Exam Type: Colonoscopy [...] monitored continuously. The Olympus adult variable colonoscope [id number] #2was introduced through the anus and advanced [...] 9:48 AM Procedure Code(s): --- Professional --- 05129, Colonoscopy, flexible; with removal of tumor(s), polyp(s), or other lesion(s) by snare technique --- Technical --- 24980, Colonoscopy, flexible; with removal of tumor(s), polyp(s), or other lesion(s) by snare technique Diagnosis Code(s): --- Professional --- Z12.11, Encounter for screening for malignantneoplasm of colon D12.6, Benign neoplasm of colon, unspecified --- Technical --- Z12.11, Encounter for screening for malignantneoplasm of colon D12.6, Benign neoplasm of colon, unspecified CPT copyright 2018 [place]. All rights reserved. The codes documented in this report are preliminary and upon mine supervisor reviewmay be revised to meet current compliance requirements. Procedure Date: 12/09/2019 9:48:[address] [place] [address] Jefry Paniagua MD GI PROCEDURE ORDERABLES Final Result from Last 3 Months or Most Recently Relevant to Health Maintenance Insurance [facility] Advance Directives For more information, please contact: [phone] (9AM - 5PM [facility], Saturday-Saturday) Documents on File Type Date Recorded Patient Market Asset Protection Manager Expl anation Durable Power of Squirrel Worker 12/10/2019 11:03 AM Care Teams Chummer Relationship Specialty Start Date End Date Refugio Long MD [address] [place] [phone] PCP - General Family Medicine 09/22/24 Additional Source Comments The information contained in this document represents components of the legal health record. It is not the complete legal health record.[facility]
--- NOTE | 2024-10-02 14:24 | MHC.OFFVISCO ---
Intake Intake Visit Reasons: Anticoagulation Allergies No Known Allergies Allergy (Verified 10/02/24 09:01) Medication List - Last Reconciled 10/02/24 by Sari Farmer RN cephalexin 500 mg PO BID cholecalciferol (vitamin D3) 50 mcg PO DAILY simvastatin 10 mg PO DAILY 90 days warfarin 8 mg See Protocol PO DAILY 90 days Nursing Note INR 2.1 out of therapeutic range 2.5-3.5 Medications and supplements reviewed Patient status: healed from skin infection, still has 2 doses of antbx left- INR should reflect the and elevated effect after 9 days of treatment Medications or supplements: no other changes Diet: good - has been eating peas - rich in protein and low vit k may be contributing to low INR Denies any signs and symptoms of bleeding or clotting or unusual bruising Bleeding, bruising, clotting discussed Nutritional guidance given: avoid greens until INR greater than 2.5 Dose: 12 mg x 2 days 10mg all other days f/u 10/06/2024 F/U INR Date : 10/06/2024 ?? Patient verbalizing understanding of instructions given. 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 Illness/Depression: No Coding Level of Care Code Est Patient Level 1 Diagnoses Current use of anticoagulant therapy Z79.01 Results AMB INR Fingerstick AMB INR Fingerstick 2.1 Last Edit by Sari Farmer RN on 10/02/24 09:14 manual entry Assessment & Plan Assessment & Plan (1) Current use of anticoagulant therapy: Code(s): Z79.01 - petroleum terminal plant operator (current) use of anticoagulants Category: Medical
== END 2024-10-02 09:27 | disposition home or self-care (01) ==
LOC: HO.ACS 09:00
PROVIDERS: PCP Family Medicine; Visit Provider Internal Medicine Medical Oncology
DX: Z79.01 Long term (current) use of anticoagulants (principal)

== ENCOUNTER → 2024-10-02 09:00 | Outpatient (BNVA) | payer OTHER, SELFPAY | PROVIDERS: PCP Family Medicine; Visit Provider Internal Medicine Medical Oncology | DX: Z79.01 Long term (current) use of anticoagulants (principal) | CPT/HCPCS: 85610; 99211 ==

== ENCOUNTER 2024-10-06 10:27 | Outpatient (AMB) | payer OTHER, SELFPAY ==
--- NOTE | 2024-10-06 10:43 | MHC.OFFVISCO ---
Intake Intake Visit Reasons: Anticoagulation Allergies No Known Allergies Allergy (Verified 10/06/24 10:29) Medication List - Last Reconciled 10/06/24 by Sari Farmer RN cholecalciferol (vitamin D3) 50 mcg PO DAILY simvastatin 10 mg PO DAILY 90 days warfarin 8 mg See Protocol PO DAILY 90 days Nursing Note INR: 3.2 in therapeutic range Medications and supplements reviewed Pt completed antbx 10/02/2024 for skin infection - may have contributed to INR level today due to delayed on set of interaction with warfarin, previous INR may have been low r/t GI motility/mild constipation due pt hydration status with hot weather and increased activity level. Denies any signs and symptoms of bleeding or bruising or clotting. 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 Illness/Depression: No Coding Level of Care Code Est Patient Level 1 Diagnoses Current use of anticoagulant therapy Z79.01 Results AMB INR Fingerstick AMB INR Fingerstick 3.5 Last Edit by Sari Farmer RN on 10/06/24 10:48 Assessment & Plan Assessment & Plan (1) Current use of anticoagulant therapy: Code(s): Z79.01 - nursing home (current) use of anticoagulants Category: Medical
[2024-10-06 10:50] LABS: Prothrombin Time Whole Bld POC 38.8 sec (11.1-13.5); ~PT, ~INR - Anti Coag Clinic 3.2 (0.9-1.1)
--- OUTSIDE RECORDS SUMMARY | 2024-10-06 11:07 | XMS_ITS | Clinical Summary ---
Author Organization [facility] Address [address] [place] [address] Phone Care Team Providers Care Swimming Pool Servicer Name Role Phone Refugio Long MD Primary [...] day for 10 days. 20 capsule 09/22/2024 10/03/19 25 Encounters Date Type Department Care Team Description 09/22/2024 7:00 PM EDT Office Visit [facility] at [address] [address] Isabel Fontaine, LEAD PRESSMAN [employer]ING Cellulitis of left upper extremity (Primary Dx) [...] this topic Medical Devices Implanted Type Area Electrical Engineer Device Identifier Shelf Expiration Date Model / Serial / Lot Clip Hemostasis 360deg 235cm Resolution 360 Latex Free 2.8mm Channel Bx/20ea - [id number] Implanted:Qty: 1 on 12/09/2019 by Lola Le MD at [facility] [employer] [facility] [id number] / / Procedures Procedure Name Priority Date/Time [...] 49 Admit Type: Outpatient Gender: Male Room: [place] [address] Referring MD: NATALIA PANIAGUA Exam Type: Colonoscopy [...] monitored continuously. The Olympus adult variable colonoscope [id number] #2was introduced through the anus and advanced [...] 9:48 AM Procedure Code(s): --- Professional --- 02016, Colonoscopy, flexible; with removal of tumor(s), polyp(s), or other lesion(s) by snare technique --- Technical --- 73340, Colonoscopy, flexible; with removal of tumor(s), polyp(s), or other lesion(s) by snare technique Diagnosis Code(s): --- Professional --- Z12.11, Encounter for screening for malignantneoplasm of colon D12.6, Benign neoplasm of colon, unspecified --- Technical --- Z12.11, Encounter for screening for malignantneoplasm of colon D12.6, Benign neoplasm of colon, unspecified CPT copyright 2018 [employer]. All rights reserved. The codes documented in this report are preliminary and upon maid cleaning cooking reviewmay be revised to meet current compliance requirements. Procedure Date: 12/09/2019 9:48:[address] [place] [address] Jefry Paniagua MD GI PROCEDURE ORDERABLES Final Result from Last 3 Months or Most Recently Relevant to Health Maintenance Insurance [facility] Advance Directives For more information, please contact: [phone] (9AM - 5PM [facility], Saturday-Saturday) Documents on File Type Date Recorded Patient Biological Chemist Expl anation Durable Power of Oil Well Services Superintendent 12/10/2019 11:03 AM Care Teams Swimming Pool Servicer Relationship Specialty Start Date End Date Refugio Long MD [address] [place] [id number] PCP - General Family Medicine 09/22/24 Additional Source Comments The information contained in this document represents components of the legal health record. It is not the complete legal health record.[facility]
--- OUTSIDE RECORDS SUMMARY | 2024-10-06 11:07 | XMS_ITS | Patient Health Record ---
Author Organization [facility] Address [address] [place] [address] Care Team Providers Care Clerk Entry Level Name Role Phone Bud (RETIRED) Jefry LAWSON Primary Care Provide r Unavailable Stefan Glover Jr Unavailable Reason For Referral No Information Plan Of Treatment No Information Insurance Providers Payer Name Payer Address Payer Phone Subscriber Number Group Number Insured Name Patient Relationship to Insured Coverage Start Date Coverage End Date [facility] [id number] [place], [place] [id number] ALYSON GILLETTE Self - patient is the insured
== END 2024-10-06 11:01 | disposition home or self-care (01) ==
LOC: HO.ACS 10:27
PROVIDERS: PCP Family Medicine; Visit Provider Internal Medicine Medical Oncology
DX: Z79.01 Long term (current) use of anticoagulants (principal)

== ENCOUNTER → 2024-10-06 10:27 | Outpatient (BNVA) | payer OTHER, SELFPAY | PROVIDERS: PCP Family Medicine; Visit Provider Internal Medicine Medical Oncology | DX: Z79.01 Long term (current) use of anticoagulants (principal) | CPT/HCPCS: 85610; 99211 ==

== ENCOUNTER 2024-10-13 08:16 | Outpatient (AMB) | payer OTHER, SELFPAY ==
[2024-10-13 08:21] LABS: Prothrombin Time Whole Bld POC 36.6 sec (11.1-13.5); ~PT, ~INR - Anti Coag Clinic 3.1 (0.9-1.1)
--- OUTSIDE RECORDS SUMMARY | 2024-10-13 08:24 | XMS_ITS | Clinical Summary ---
Author Organization [facility] Address [address] [facility] [address] [place] [address] Phone Care Team Providers Care Rn Unit Manager Name Role Phone Refugio Long MD Primary [...] Office Visit [facility] at [address] [address] Isabel Fontaine, CLEAN UP WORKER Cellulitis of left upper extremity (Primary Dx) [...] this topic Medical Devices Implanted Type Area Stagecraft Teacher Device Identifier Shelf Expiration Date Model / Serial / Lot Clip Hemostasis 360deg 235cm Resolution 360 Latex Free 2.8mm Channel Bx/20ea - [id number] Implanted:Qty: 1 on 12/09/2019 by Lola Le MD at [facility] [employer] [facility] [id number] / / Procedures Procedure Name Priority Date/Time [...] 51 Admit Type: Outpatient Gender: Male Room: [place] [address] Referring MD: NATALIA PANIAGUA Exam Type: Colonoscopy [...] monitored continuously. The Olympus adult variable colonoscope [id number] #2was introduced through the anus and advanced [...] 9:48 AM Procedure Code(s): --- Professional --- 37149, Colonoscopy, flexible; with removal of tumor(s), polyp(s), or other lesion(s) by snare technique --- Technical --- 02590, Colonoscopy, flexible; with removal of tumor(s), polyp(s), or other lesion(s) by snare technique Diagnosis Code(s): --- Professional --- Z12.11, Encounter for screening for malignantneoplasm of colon D12.6, Benign neoplasm of colon, unspecified --- Technical --- Z12.11, Encounter for screening for malignantneoplasm of colon D12.6, Benign neoplasm of colon, unspecified CPT copyright 2018 [employer]. All rights reserved. The codes documented in this report are preliminary and upon cable assembler reviewmay be revised to meet current compliance requirements. Procedure Date: 12/09/2019 9:48:[address] [place] [address] Jefry Paniagua MD GI PROCEDURE ORDERABLES Final Result from Last 3 Months or Most Recently Relevant to Health Maintenance Insurance [facility] Advance Directives For more information, please contact: [phone] (9AM - 5PM [place]nn/[facility], Saturday-Saturday) Documents on File Type Date Recorded Patient Power Saw Operator Expl anation Durable Power of Community Health Worker 12/10/2019 11:03 AM Care Teams Rn Unit Manager Relationship Specialty Start Date End Date Refugio Long MD [address] [place] [address] PCP - General Family Medicine 09/22/24 Additional Source Comments The information contained in this document represents components of the legal health record. It is not the complete legal health record.[facility]
--- OUTSIDE RECORDS SUMMARY | 2024-10-13 08:24 | XMS_ITS | Patient Health Record ---
Author Organization [facility] Address [address] [place] [address] Care Team Providers Care Wildlife Management Professor Name Role Phone Bud (RETIRED) Jefry LAWSON Primary Care Provide r Unavailable Stefan Glover Jr Unavailable Reason For Referral No Information Plan Of Treatment No Information Insurance Providers Payer Name Payer Address Payer Phone Subscriber Number Group Number Insured Name Patient Relationship to Insured Coverage Start Date Coverage End Date [facility] [address] [place], [place] [id number] ALYSON GILLETTE Self - patient is the insured
--- NOTE | 2024-10-13 08:27 | MHC.OFFVISCO ---
Intake Intake Visit Reasons: Anticoagulation Allergies No Known Allergies Allergy (Verified 10/13/24 08:16) Medication List - Last Reconciled 10/13/24 by Tomeka Louis RN cholecalciferol (vitamin D3) 50 mcg PO DAILY simvastatin 10 mg PO DAILY 90 days warfarin See Protocol INR HAS REQUIRED WARFARIN DOSE INCREASE 10MG X 5 DAYS / 12MG X 2 DAYS orally daily; 2-3 TABS DAILY PER INR PER ANTICOAG 90 days Nursing Note INR: 3.1 in therapeutic range 2.5-3.5 Medications and supplements reviewed No changes in health, diet, medications, or supplements, Denies any signs and symptoms of bleeding or bruising or clotting. 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 Illness/Depression: No Coding Level of Care Code Est Patient Level 1 Diagnoses Current use of anticoagulant therapy Z79.01 Results AMB INR Fingerstick AMB INR Fingerstick 3.1 Last Edit by Tomeka Louis RN on 10/13/24 08:26 interface delay Assessment & Plan Assessment & Plan (1) Current use of anticoagulant therapy: Code(s): Z79.01 - terminal clerk (current) use of anticoagulants Category: Medical
== END 2024-10-13 08:30 | disposition home or self-care (01) ==
LOC: HO.ACS 08:16
PROVIDERS: PCP Family Medicine; Visit Provider Internal Medicine Medical Oncology
DX: Z79.01 Long term (current) use of anticoagulants (principal)

== ENCOUNTER → 2024-10-13 08:16 | Outpatient (BNVA) | payer OTHER, SELFPAY | PROVIDERS: PCP Family Medicine; Visit Provider Internal Medicine Medical Oncology | DX: I48.0 Paroxysmal atrial fibrillation (principal); D68.59 Other primary thrombophilia; Z86.718 Personal history of other venous thrombosis and embolism; Z95.2 Presence of prosthetic heart valve; Z51.81 Encounter for therapeutic drug level monitoring; Z79.01 Long term (current) use of anticoagulants | CPT/HCPCS: 85610; 99211 ==

== ENCOUNTER → 2024-10-27 08:46 | Outpatient (REF) | payer OTHER, SELFPAY ==
--- NOTE | 2024-10-27 08:50 | CA_ITS ---
Transthoracic Echocardiogram Patient (Last, First, Middle): Jagdish Bautista, Gender: Male Date of : 1970 Age: 54 Procedure Date: 10/27/2024 Procedure Type: Transthoracic Echocardiogram Location: OP Height: 182.88 cm Weight: 90.72 kg BSA: 2.13 m2 Heart Rate: 85 bpm BP: 118 / 60 mmHg Core Composer Feeder: JEVON Referring MD: Deepak Villanueva MD Symptoms: Z95.2 - Presence of prosthetic heart valve Study Quality: Fair. Bubble study ECG Rhythm: Atrial Fibrillation Conclusions: - The left ventricular systolic function is normal. The calculated ejection fraction is 63% by biplane method. - There is no evidence of interatrial shunt by agitated saline. - A mechanical prosthetic aortic valve is present. The prosthetic aortic valve appears to be functioning normally. Findings Left Ventricle Normal left ventricular cavity size. There is mildly increased left ventricular wall thickness. The left ventricular systolic function is normal. The calculated ejection fraction is 63% by biplane method. There is no evidence of regional wall motion abnormalities. Diastolic function is normal for age. Right Ventricle Moderately increased right ventricular cavity size. There is normal right ventricular systolic function. Atria The left atrium is normal in size. There is no evidence of interatrial shunt by agitated saline. The right atrium is moderately dilated. Bubble study negative during rest and valsalva. Aortic Valve A mechanical prosthetic aortic valve is present. The prosthetic aortic valve appears to be functioning normally. The mean gradient is 14 mmHg. There is no aortic valve regurgitation. Mitral Valve The mitral valve appears normal. There is trace mitral valve regurgitation. There is no mitral valve stenosis. Pulmonic Valve The pulmonic valve is likely normal. Tricuspid Valve Normal tricuspid valve structure. There is mild tricuspid valve regurgitation. There is no evidence of pulmonary hypertension. Great Vessels The asc aorta is normal in size. Venous The inferior vena cava is mildly dilated and collapses greater than 50% with inspiration. Pericardium/Pleural There is no evidence of pericardial effusion. Prior Study Comparison No significant change compared to prior study dated: 11/07/2023. Measurements 2D Linear Measurements IVSd: 0.89 0.6-0.9/0.6-1.0 cm LVIDd: 4.37 3.9-5.3/4.2-5.9 cm LVIDd Index: 2.05 2.4-3.2/2.2-3.1 cm/m2 LVIDs: 2.24 2.0-3.6 cm LVPWd: 1.15 0.7-1.1 cm LA Diam: 3.70 2.7-3.8/3.0-4.0 cm LAIDs Index: 1.74 1.5-2.3 cm/m2 LV Mass: 187.12 67-162/88-224 g LV Mass Index: 87.85 43-95/49-115 g/m2 LVOT Diam: 2.00 3.0+(-)1.3 cm 2D Systolic Function EF 4C: 63.30 >55% EF 2C: 61.70 >55% EF BiP: 62.80 >55% Mitral Valve MV Pk E: 1.25 MV PK A: 0.72 MV Decel Time: 222.00 E/A: 1.70 E'Lateral: 11.50 E'Medial: 9.03 E/E' Med: 13.80 E/E' Lat: 10.90 PHT: 65.00 MVA PHT: 3.38 Decel Cobb: 5.64 Aortic Valve AoV Pk Casey: 2.51 AoV Mn Casey: 1.73 AoV VTI: 0.50 AoV Pk Grad: 25.00 Aov Mn Grad: 14.00 YOU Cont.VTI: 2.26 LVOT LVOT Pk Casey: 1.84 LVOT Mn Casey: 1.28 LVOT VTI: 0.36 LVOT Pk Grad: 14.00 LVOT Mn Grad: 8.00 LVOT Diam: 2.00 LVOT Area: 3.14 Diastolic Function MV Pk E: 1.25 MV Pk A: 0.72 E/A: 1.70 E'Medial: 9.03 E/E' Med: 13.80 E' Laterial: 11.50 E/E' Lat: 10.90 Right Ventricle TAPSE (mm): 15.50 TVS' Casey: 13.50 Tricuspid Valve TR Pk Casey: 2.09 TR Pk Grad: 17.00 RA Press: 8.00 RVSP: 25.00 Great Vessels Aorta Sinus of Valsalva: 3.40 2.0-3.5 cm Ao Asc: 3.50 2.1-3.4 cm Ao Arch: 3.30 Pulmonary Valve PV Pk Casey: 0.96 Peak PV Grad: 4.00 Updated in Other Vendor System with Status of Final Heber Mallory MD electronically signed on 10/28/2024 3:07:52 PM with status of Final
== END ==
LOC: HO.CARD 08:46
PROVIDERS: PCP Family Medicine; Visit Provider Internal Medicine Cardiovascular Disease
DX: Z95.2 Presence of prosthetic heart valve (principal)
CPT/HCPCS: 85610; 93306; 99211

== ENCOUNTER → 2024-10-27 08:50 | Outpatient (BNV) | payer OTHER, SELFPAY | PROVIDERS: PCP Family Medicine; Visit Provider Internal Medicine | DX: Z95.2 Presence of prosthetic heart valve (principal) | CPT/HCPCS: 93306 ==

== ENCOUNTER 2024-10-28 08:28 | Outpatient (REF) | payer OTHER, SELFPAY ==
--- NOTE | ~2024-10-28 | US_ITS ---
EXAMINATION: US ABDOMEN LIMITED CLINICAL INFORMATION: Elevated liver enzymes.. COMPARISON: None available. TECHNIQUE: Real-time ultrasound of the right upper quadrant abdomen using grayscale and color Doppler technique. FINDINGS: PANCREAS: No peripancreatic fluid collections. LIVER: Liver measures 16 cm. No nodular surface. Normal echotexture. There is a 1.1 cm subtle hyperechoic lesion, right hepatic lobe. No intrahepatic biliary ductal dilatation. GALLBLADDER: Gallbladder is not distended and fluid-filled. No pericholecystic fluid collection or gallbladder wall thickening. COMMON BILE DUCT: 5 mm. RIGHT KIDNEY: 12 cm. Normal echotexture. Normal renal cortical thickness. No hydronephrosis. There is a 2.2 cm exophytic anechoic lesion in the upper pole without flow on color Doppler interrogation. There is no nodular component.. FREE FLUID: None. US/US abdomen limited IMPRESSION: Hepatomegaly, mild. Probable hepatic steatosis. Probable 1.1 cm hemangioma, right hepatic lobe. 2.2 cm exophytic simple cyst, right kidney. No cholelithiasis or choledocholithiasis. Electronically signed by: Devan Del Toro MD 10/28/2024 09:02 AM EDT
--- OUTSIDE RECORDS SUMMARY | 2024-10-28 08:50 | XMS_ITS | Encounter Summary ---
Author Organization [facility] Address [address] [place] [address] Phone Care Team Providers Care Typing Pool Supervisor Name Role Phone Jefry Farrell MD Primary Care Provider Refugio Long MD Primary Care Provider Encounter Details Date Type Department Care Team (Late st Contact Info) Description 12/09/2019 Procedure Pass [facility] Endoscopy Admitting Dept Virtual Department [address] [place] [address] Social History Tobacco Use Types Packs/Day Years Used Date Smoking Tobacco: Never Smokeless Tobacco: Never Alcohol Use Standard Drinks/Week Comments Not Currently 0 (1 standard drink = 0.6 oz pur e alcohol) very rare Sex and Gender Information Value Date Recorded Sex Assigned at Not on file Legal Sex Male 7:04 PM EST Gender Identity Not on file Sexual Orientation Not on file documented as of this encounter Plan of Treatment Not on file documented as of this encounter Visit Diagnoses Not on filedocumented in this encounter Care Teams Typing Pool Supervisor Relationship Specialty Start Date End Date Jefry Farrell MD [address] [place] [address] [place] [address] PCP - General Internal Medicine 11/27/19 09/21/24 Refugio Long MD [address] [place] [address] PCP - General Family Medicine 09/22/24 documented as of this encounter Additional Source Comments The information contained in this document represents components of the legal health record. It is not the complete legal health record.[facility]
--- OUTSIDE RECORDS SUMMARY | 2024-10-28 08:50 | XMS_ITS | Patient Health Record ---
Author Organization [facility] Address [address] [place] [address] Care Team Providers Care Asbestos Removal Worker Name Role Phone Bud (RETIRED) Jefry LAWSON Primary Care Provide r Unavailable Stefan Glover Jr Unavailable Reason For Referral No Information Plan Of Treatment No Information Insurance Providers Payer Name Payer Address Payer Phone Subscriber Number Group Number Insured Name Patient Relationship to Insured Coverage Start Date Coverage End Date [facility] [address] [place], [place] [id number] [phone] [id number] 001 ALYSON GILLETTE Self - patient is the insured
--- OUTSIDE RECORDS SUMMARY | 2024-10-28 08:50 | XMS_ITS | Clinical Summary ---
Author Organization [facility] Address [address] [facility] [address] [place] [address] Phone Care Team Providers Care Teleprinter Name Role Phone Refugio Long MD Primary [...] Office Visit [facility] at [address] [address] Isabel Fontaine, GAS UTILITY WORKER Cellulitis of left upper extremity (Primary [...] 01/13/2018 ZOSTER VACCINES (1 of 2) 01/13/2018 INFLUENZA VACCINE (#1) 2024 03/10/2024 COLONOSCOPY 12/08/2029 12/09/2019 COLORECTAL CANCER SCREENING 12/08/2029 [...] this topic Medical Devices Implanted Type Area Parts Interpreter Device Identifier Shelf Expiration Date Model / Serial / Lot Clip Hemostasis 360deg 235cm Resolution 360 Latex Free 2.8mm Channel Bx/20ea - [id number] Implanted:Qty: 1 on 12/09/2019 by Lola Le MD at [facility] [employer] STEVE [id number] / / Procedures Procedure Name Priority Date/Time Associated Diagnosis Comments ENDOSCOPY, COLON 12/09/2019 9:48 AM EDT from Last 3 Months or Most Recently Relevant to Health Maintenance Results * ENDOSCOPY, COLON (12/09/2019 9:48 AM EDT) Narrative Transcriptions Lola Le MD - 12/09/2019 9:48 AM EDT Patient Name: Jagdish Bautista Attending MD:: LOLA LE MD Procedure Date: 12/09/2019 9:48 AM Date of : 1970 Age: 49 Admit Type: Outpatient Gender: Male Room: [place] [address] Referring MD: NATALIA PANIAGUA Exam Type: Colonoscopy [...] monitored continuously. The Olympus adult variable colonoscope [id number] #2was introduced through the anus and advanced [...] 9:48 AM Procedure Code(s): --- Professional --- 41668, Colonoscopy, flexible; with removal of tumor(s), polyp(s), or other lesion(s) by snare technique --- Technical --- 01617, Colonoscopy, flexible; with removal of tumor(s), polyp(s), or other lesion(s) by snare technique Diagnosis Code(s): --- Professional --- Z12.11, Encounter for screening for malignantneoplasm of colon D12.6, Benign neoplasm of colon, unspecified --- Technical --- Z12.11, Encounter for screening for malignantneoplasm of colon D12.6, Benign neoplasm of colon, unspecified CPT copyright 2018 [employer]. All rights reserved. The codes documented in this report are preliminary and upon paper baling machine operator reviewmay be revised to meet current compliance requirements. Procedure Date: 12/09/2019 9:48:[address] [place] [address] Jefry Paniagua MD GI PROCEDURE ORDERABLES Final Result from Last 3 Months or Most Recently Relevant to Health Maintenance Insurance [facility] Advance Directives For more information, please contact: [phone] (9AM - 5PM [place], Saturday-[place]) Documents on File Type Date Recorded Patient Pet Care Associate Expl anation Durable Power of Developer [employer] Systems 12/10/2019 11:03 AM Care Teams Teleprinter Relationship Specialty Start Date End Date Refugio Long MD [address] [place] [address] PCP - General Family Medicine 09/22/24 Additional Source Comments The information contained in this document represents components of the legal health record. It is not the complete legal health record.[facility]
== END 2024-10-28 08:29 | disposition home or self-care (01) ==
LOC: HO.US 08:28
PROVIDERS: PCP Family Medicine; Visit Provider Family Medicine
DX: R74.01 Elevation of levels of liver transaminase levels (principal)
CPT/HCPCS: 76705

== ENCOUNTER → 2024-10-28 08:33 | Outpatient (BNV) | payer OTHER, SELFPAY | PROVIDERS: PCP Family Medicine; Visit Provider Radiology Diagnostic Radiology | DX: R16.0 Hepatomegaly, not elsewhere classified (principal) | CPT/HCPCS: 76705 ==

== ENCOUNTER 2024-11-05 13:29 | Outpatient (AMB) | payer OTHER, SELFPAY ==
[2024-11-05 13:52] LABS: Prothrombin Time Whole Bld POC 30.2 sec (11.1-13.5); ~PT, ~INR - Anti Coag Clinic 2.5 (0.9-1.1)
--- NOTE | 2024-11-05 14:00 | MHC.OFFVISCO ---
Intake Intake Visit Reasons: Anticoagulation Allergies No Known Allergies Allergy (Verified 11/05/24 13:48) Medication List - Last Reconciled 11/05/24 by Rosio Macario, RN cholecalciferol (vitamin D3) 50 mcg PO DAILY simvastatin 10 mg PO DAILY 90 days warfarin See Protocol INR HAS REQUIRED WARFARIN DOSE INCREASE 10MG X 5 DAYS / 12MG X 2 DAYS orally daily; 2-3 TABS DAILY PER INR PER ANTICOAG 90 days Nursing Note NO CP,SOB,DIET/MED CHANGES,FALLS OR SX OF BLEEDING. INCREASE WEEKLY DOSE AND FOLLOW-UP IN 2 WEEKS GOOD UNDERSTANDING OF DOSING INSTR. 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 Illness/Depression: No Coding Level of Care Code Est Patient Level 1 Diagnoses Current use of anticoagulant therapy Z79.01 Assessment & Plan Assessment & Plan (1) Current use of anticoagulant therapy: Code(s): Z79.01 - intermediate project manager (current) use of anticoagulants Category: Medical
--- OUTSIDE RECORDS SUMMARY | 2024-11-05 14:45 | XMS_ITS | Clinical Summary ---
Author Organization [facility] Address [address] [facility] [address] [address] [place] [address] Phone Care Team Providers Care Rehabilitation Services Aide Name Role Phone Refugio Long MD Primary [...] Take 2,000 Units by mouth daily. Active Encounters Date Type Department Care Team Description 09/22/2024 7:00 PM EDT Office Visit [facility] at [address] [address] Isabel Fontaine, MALLORIE Cellulitis of left upper [...] this topic Medical Devices Implanted Type Area Medicine Man Device Identifier Shelf Expiration Date Model / Serial / Lot Clip Hemostasis 360deg 235cm Resolution 360 Latex Free 2.8mm Channel Bx/20ea - [id number] Implanted:Qty: 1 on 12/09/2019 by Lola Le MD at [facility] [employer] STEVE [id number] / / Procedures Procedure Name Priority Date/Time [...] 49 Admit Type: Outpatient Gender: Male Room: [place] [address] Referring MD: NATALIA PANIAGUA Exam Type: Colonoscopy [...] monitored continuously. The Olympus adult variable colonoscope [id number] #2was introduced through the anus and advanced [...] 9:48 AM Procedure Code(s): --- Professional --- 05905, Colonoscopy, flexible; with removal of tumor(s), polyp(s), or other lesion(s) by snare technique --- Technical --- 39280, Colonoscopy, flexible; with removal of tumor(s), polyp(s), or other lesion(s) by snare technique Diagnosis Code(s): --- Professional --- Z12.11, Encounter for screening for malignantneoplasm of colon D12.6, Benign neoplasm of colon, unspecified --- Technical --- Z12.11, Encounter for screening for malignantneoplasm of colon D12.6, Benign neoplasm of colon, unspecified CPT copyright 2018 [place] [employer]. All rights reserved. The codes documented in this report are preliminary and upon appraisal analyst reviewmay be revised to meet current compliance requirements. Procedure Date: 12/09/2019 9:48:[address] [place] [address] Jefry Paniagua MD GI PROCEDURE ORDERABLES Final Result from Last 3 Months or Most Recently Relevant to Health Maintenance Insurance [facility] Advance Directives For more information, please contact: [phone] (9AM - 5PM [facility], Saturday-Saturday) Documents on File Type Date Recorded Patient Camera Control Operator Expl anation Durable Power of Tax Representative 12/10/2019 11:03 AM Care Teams Rehabilitation Services Aide Relationship Specialty Start Date End Date Refugio Long MD [address] [place] [address] PCP - General Family Medicine 09/22/24 Additional Source Comments The information contained in this document represents components of the legal health record. It is not the complete legal health record.[facility]
--- OUTSIDE RECORDS SUMMARY | 2024-11-05 14:45 | XMS_ITS | Encounter Summary ---
Author Organization [facility] Address [address] [place] [address] Phone Care Team Providers Care Business Administration Instructor Name Role Phone Jefry Farrell MD Primary Care Provider Refugio Long MD Primary Care Provider Encounter Details Date Type Department Care Team (Late st Contact Info) Description 12/09/2019 Procedure Pass [facility] Endoscopy Admitting Dept Virtual Department [address] [place] [address] Social History Tobacco Use Types Packs/Day Years [...] on filedocumented in this encounter Care Teams Business Administration Instructor Relationship Specialty Start Date End Date Jefry Farrell MD [address] [place] [address] [place] [address] PCP - General Internal Medicine 11/27/19 09/21/24 Refugio Long MD [address] [place] [address] PCP - General Family Medicine 09/22/24 documented as of this encounter Additional Source Comments The information contained in this document represents components of the legal health record. It is not the complete legal health record.[facility]
--- OUTSIDE RECORDS SUMMARY | 2024-11-05 14:45 | XMS_ITS | Patient Health Record ---
Author Organization [facility] Address [address] [place] [address] Care Team Providers Care Manager Professional Development Name Role Phone Bud (RETIRED) Jefry LAWSON Primary Care Provide r Unavailable Stefan Glover Jr Unavailable Reason For Referral No Information Plan Of Treatment No Information Insurance Providers Payer Name Payer Address Payer Phone Subscriber Number Group Number Insured Name Patient Relationship to Insured Coverage Start Date Coverage End Date [facility] [address] [place], [place] [id number] [phone] [id number] 001 ALYSON GILLETTE Self - patient is the insured
== END 2024-11-05 14:10 | disposition home or self-care (01) ==
LOC: HO.ACS 13:29
PROVIDERS: PCP Family Medicine; Visit Provider Internal Medicine Medical Oncology
DX: Z79.01 Long term (current) use of anticoagulants (principal)

== ENCOUNTER → 2024-11-05 13:29 | Outpatient (BNVA) | payer OTHER, SELFPAY | PROVIDERS: PCP Family Medicine; Visit Provider Internal Medicine Medical Oncology | DX: I48.0 Paroxysmal atrial fibrillation (principal); D68.59 Other primary thrombophilia; Z86.718 Personal history of other venous thrombosis and embolism; Z95.2 Presence of prosthetic heart valve; Z79.01 Long term (current) use of anticoagulants; Z51.81 Encounter for therapeutic drug level monitoring | CPT/HCPCS: 85610; 99211 ==

== ENCOUNTER 2024-11-12 10:56 | Outpatient (REF) | payer OTHER, SELFPAY ==
[2024-11-12 14:58] LABS: Alanine Aminotransferase 30 U/L (0-40); Albumin Level 4.1 g/dL (3.5-5.0); Alkaline Phosphatase 60 U/L (39-117); Anion Gap 10 (12-20); Aspartate Amino Transferase 34 U/L (5-37); Blood Urea Nitrogen 19 mg/dL (9-16); Calcium 8.7 mg/dL (8.4-10.2); Carbon Dioxide 28 mmol/L (22-29); Chloride 106 mmol/L (96-108); Estimated Glomerular Filt Rate > 60; Potassium 3.9 mmol/L (3.3-5.1); Sodium 140 mmol/L (135-145); Total Protein 7.0 g/dL (6.5-8.0)
--- OUTSIDE RECORDS SUMMARY | 2024-11-12 15:05 | XMS_ITS | Clinical Summary ---
Author Organization [facility] Address [address] [facility] [address] [place] [address] Phone Care Team Providers Care Rn Medicare Name Role Phone Refugio Long MD Primary [...] Office Visit [facility] [address] [address] Isabel Fontaine, M[place]ORIE Cellulitis of left upper [...] this topic Medical Devices Implanted Type Area Manager Career Device Identifier Shelf Expiration Date Model / Serial / Lot Clip Hemostasis 360deg 235cm Resolution 360 Latex Free 2.8mm Channel Bx/20ea - [id number] Implanted:Qty: 1 on 12/09/2019 by Lola Le MD at [facility] [employer] STEVE [id number] / / Procedures Procedure Name Priority Date/Time [...] 51 Admit Type: Outpatient Gender: Male Room: [place] [address] Referring MD: NATALIA PANIAGUA Exam Type: Colonoscopy [...] monitored continuously. The Olympus adult variable colonoscope [id number] #[id number] introduced through the anus and advanced [...] 9:48 AM Procedure Code(s): --- Professional --- 95112, Colonoscopy, flexible; with removal of tumor(s), polyp(s), or other lesion(s) by snare technique --- Technical --- 94018, Colonoscopy, flexible; with removal of tumor(s), polyp(s), or other lesion(s) by snare technique Diagnosis Code(s): --- Professional --- Z12.11, Encounter for screening for malignantneoplasm of colon D12.6, Benign neoplasm of colon, unspecified --- Technical --- Z12.11, Encounter for screening for malignantneoplasm of colon D12.6, Benign neoplasm of colon, unspecified CPT copyright 2018 [employer]. All rights reserved. The codes documented in this report are preliminary and upon fast food crew member reviewmay be revised to meet current compliance requirements. Procedure Date: 12/09/2019 9:48:[address] [place] [address] Jefry Paniagua MD GI PROCEDURE ORDERABLES Final Result from Last 3 Months or Most Recently Relevant to Health Maintenance Insurance [facility] Advance Directives For more information, please contact: [phone] (9AM - 5PM [facility], Saturday-Saturday) Documents on File Type Date Recorded Patient Convertible Power Shovel Operator Expl anation Durable Power of Africana Studies Professor 12/10/2019 11:03 AM Care Teams Rn Medicare Relationship Specialty Start Date End Date Refugio Long MD [address] [place] [address] PCP - General Family Medicine 09/22/24 Additional Source Comments The information contained in this document represents components of the legal health record. It is not the complete legal health record.[facility]
--- OUTSIDE RECORDS SUMMARY | 2024-11-12 15:05 | XMS_ITS | Patient Health Record ---
Author Organization [facility] Address [address] [place] [address] Care Team Providers Care Oral Communication Instructor Name Role Phone Bud (RETIRED) Jefry LAWSON Primary Care Provide r Unavailable Stefan Glover Jr Unavailable Reason For Referral No Information Plan Of Treatment No Information Insurance Providers Payer Name Payer Address Payer Phone Subscriber Number Group Number Insured Name Patient Relationship to Insured Coverage Start Date Coverage End Date [facility] [address] [place], [place] [id number] ALYSON GILLETTE Self - patient is the insured
--- OUTSIDE RECORDS SUMMARY | 2024-11-12 15:05 | XMS_ITS | Encounter Summary ---
Author Organization [facility] Address [address] [place] [address] Phone Care Team Providers Care Repeat Photocomposing Machine Operator Name Role Phone Jefry Farrell MD Primary Care Provider Refugio Long MD Primary Care Provider Encounter Details Date Type Department Care Team (Late st Contact Info) Description 12/09/2019 Procedure Pass [facility] Endoscopy Admitting Dept Virtual Department [address] [place] [phone] Social History Tobacco Use Types Packs/Day Years [...] on filedocumented in this encounter Care Teams Repeat Photocomposing Machine Operator Relationship Specialty Start Date End Date Jefry Farrell MD [address] [place] [address] [place] [address] PCP - General Internal Medicine 11/27/19 09/21/24 Refugio Long MD [address] [place] [address] PCP - General Family Medicine 09/22/24 documented as of this encounter Additional Source Comments The information contained in this document represents components of the legal health record. It is not the complete legal health record.[facility]
== END 2024-11-12 10:57 | disposition home or self-care (01) ==
LOC: HO.WFDLDS 10:56
PROVIDERS: Visit Provider Family Medicine
DX: R74.8 Abnormal levels of other serum enzymes (principal)
CPT/HCPCS: 36415; 80053

== ENCOUNTER 2024-11-13 08:15 | Outpatient (AMB) | payer OTHER, SELFPAY ==
[2024-11-13 08:34] LABS: Prothrombin Time Whole Bld POC 40.3 sec (11.1-13.5); ~PT, ~INR - Anti Coag Clinic 3.4 (0.9-1.1)
--- NOTE | 2024-11-13 08:42 | MHC.OFFVISCO ---
Intake Intake Visit Reasons: Anticoagulation Allergies No Known Allergies Allergy (Verified 11/13/24 08:16) Medication List - Last Reconciled 11/13/24 by Sari Farmer RN cholecalciferol (vitamin D3) 50 mcg PO DAILY simvastatin 10 mg PO DAILY 90 days warfarin See Protocol INR HAS REQUIRED WARFARIN DOSE INCREASE 10MG X 5 DAYS / 12MG X 2 DAYS orally daily; 2-3 TABS DAILY PER INR PER ANTICOAG 90 days Nursing Note INR: 3.4 in therapeutic range Medications and supplements reviewed- out of concern for clotting -pt took 12mg x 3 days /10mg x 4 days for borderline INR of 2.5. S/p right arm lac with tendon surgical repair, healing well: has Full ROM, feels different in finger movement area, edges approximated and healing, slight bump distal end of incision - enc to discuss with ortho surgeon. Denies any signs and symptoms of bleeding or bruising or clotting. 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 Illness/Depression: No Coding Level of Care Code Est Patient Level 1 Diagnoses Current use of anticoagulant therapy Z79.01 Results AMB INR Fingerstick AMB INR Fingerstick 3.4 Last Edit by Sari Farmer RN on 11/13/24 08:25 MANUAL ENTRY Assessment & Plan Assessment & Plan (1) Current use of anticoagulant therapy: Code(s): Z79.01 - digital analyst (current) use of anticoagulants Category: Medical
== END 2024-11-13 08:48 | disposition home or self-care (01) ==
LOC: HO.ACS 08:15
PROVIDERS: PCP Family Medicine; Visit Provider Internal Medicine Medical Oncology
DX: Z79.01 Long term (current) use of anticoagulants (principal)

== ENCOUNTER → 2024-11-13 08:15 | Outpatient (BNVA) | payer OTHER, SELFPAY | PROVIDERS: PCP Family Medicine; Visit Provider Internal Medicine Medical Oncology | DX: I48.0 Paroxysmal atrial fibrillation (principal); D68.59 Other primary thrombophilia; Z86.718 Personal history of other venous thrombosis and embolism; Z95.2 Presence of prosthetic heart valve; Z79.01 Long term (current) use of anticoagulants; Z51.81 Encounter for therapeutic drug level monitoring | CPT/HCPCS: 85610; 99211 ==

== ENCOUNTER 2024-11-16 11:07 | Outpatient (AMB) | payer OTHER, SELFPAY ==
[2024-11-16 11:18] VITALS: BP 120/82; PULSE 60; BMI 25.9
--- NOTE | 2024-11-16 11:18 | A.OFFVIS_ITS ---
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 Patient has been doing very well from cardiac perspective. Patient denies any significant cardiac symptoms. Had knee issues last year due to injury. Currently planning to get back into activity level. Denies any exertional chest pain or shortness of breath. His main issue has been issues with warfarin levels. Currently saying [facility]. Denies any heart failure symptoms. No prolonged palpitation irregular heartbeat. Recent echocardiogram showed normal LV ejection fraction with normally functioning prosthetic aortic valve. [facility] Medical History Paroxysmal atrial fibrillation Venous insufficiency History of DVT (deep vein thrombosis) Protein S deficiency Surgical History S/P AVR Hx of cardiac cath (~2014) Family History Father No problems noted. Mother No problems noted. Sister HTN (hypertension) Diabetes Social History Housing: House Alcohol intake: never Patient Tobacco Use Status: Never used Tobacco e-Cigarette/Vaping Use: Never Used Second Hand Smoke Exposure: No service: No Current occupational status: retired Current occupation: retiered early Current occupational exposures/hazards: No Cognitive needs: No Hearing needs: No Vision needs: Yes Review of Systems Const Denies chills, Denies fatigue, Denies fever(s), Denies frequent falls, Denies weakness, Denies weight gain and Denies weight loss ENT Denies dizziness Card Denies chest pain, Denies leg edema, Denies lightheadedness, Denies palpitations, Denies dyspnea, Denies dyspnea on exertion, Denies orthopnea and Denies other (loss of consciousness) Resp Denies cough, Denies dyspnea and Denies dyspnea on exertion GI Denies hematochezia and Denies change in stool character Musc Denies abnormal gait, Denies muscle weakness, Denies numbness, Denies radiating pain into limb and Denies tingling Neuro Denies abnormal gait, Denies dizziness, Denies frequent falls, Denies numbness, Denies tingling and Denies weakness Endo Denies fatigue and Denies palpitations Physical Exam Vital Signs: Last Vital Signs Pulse 60 11/16/24 11:18 BP 120/82 11/16/24 11:18 BMI result Body Mass Index 25.9 Const General: cooperative, comfortable, no acute distress, alert and awake Nutritional Appearance: overweight Orientation/consciousness: patient oriented x3 Limitations: no limitations Neck Neck: Yes trachea midline, Yes supple and Yes no JVD Chest Chest palpation & inspection: normal inspection of the chest Resp Effort & Inspection: normal respiratory effort Auscultation: clear to auscultation bilaterally Cardio Jugular venous distension: no JVD Palpation: normal PMI Rate: regular rate Rhythm: regular rhythm Heart sounds: S1 normal heart sound present, Clicking heart sound present (Closing click of [place] Herman aortic valve), no gallops, no murmurs and no rubs GI Auscultation: normal bowel sounds Skin General skin exam: no rashes or lesions noted Neuro General: patient oriented x3 and no focal motor deficits Extrem General: No clubbing, No cyanosis and Yes other (Lower extremity in compression stocking) Psych Appearance: grossly normal Office Procedures EKG Details: EKGs shows normal sinus rhythm with sinus arrhythmia with first-degree AV block otherwise normal EKG 11978-Qkhpxnuybswsfodde, Complete Assessment & Plan Assessment & Plan (1) S/P AVR: Comment: s/p [place] AVR for severe related to bicuspid AV 05/2014, 27 mm Code(s): Z95.2 - Presence of prosthetic heart valve Category: Surgical Plan: Status post [place] aortic valve replacement for bicuspid aortic valve with severe aortic stenosis working well clinically as well as by recent echocardiogram. Continue warfarin therapy with target INR between 2.5 and 3.5 especially given his venous thromboembolic disease as his protein S deficiency. This is being followed by [facility]. SBE prophylaxis as per ACC/aha guidelines. (2) Paroxysmal atrial fibrillation: Code(s): I48.0 - Paroxysmal atrial fibrillation Category: Medical Plan: Paroxysmal atrial fibrillation without any obvious clinical recurrence. No indication for antiarrhythmic drug therapy. Advised to avoid stimulants. Advised to call me with any new symptoms. Continue full oral anticoagulation above with target INR between 2.5 and 3.5. Will follow up in the clinic in 1 year's time, sooner p.r.n.. Thank you for allowing me to partake in his care Coding Level of Care Code Est Pt Level 4 (79093) Complex EM visit Add On G2211 Diagnoses S/P AVR Z95.2 Paroxysmal atrial fibrillation I48.0 CPT Codes EKG - CPT: 02292-[id number], Complete ([id number])
--- OUTSIDE RECORDS SUMMARY | 2024-11-16 14:49 | XMS_ITS | Patient Health Record ---
Author Organization [facility] Address [address] [place] [address] Care Team Providers Care Stopboard Assembler Name Role Phone Bud (RETIRED) Jefry LAWSON Primary Care Provide r Unavailable Stefan Glover Jr Unavailable Reason For Referral No Information Plan Of Treatment No Information Insurance Providers Payer Name Payer Address Payer Phone Subscriber Number Group Number Insured Name Patient Relationship to Insured Coverage Start Date Coverage End Date [facility] [address] [place], [place] [id number] [phone] [id number] ALYSON GILLETTE Self - patient is the insured
--- OUTSIDE RECORDS SUMMARY | 2024-11-16 14:49 | XMS_ITS | Clinical Summary ---
Author Organization [facility] Address [address] [facility] [address] [place] [address] Phone Care Team Providers Care Felt Pad Cutter Name Role Phone Refugio Long MD Primary [...] Office Visit [facility] at [address] [address] Isabel Fontaine, [place] Cellulitis of left upper [...] this topic Medical Devices Implanted Type Area Medical Translator Device Identifier Shelf Expiration Date Model / Serial / Lot Clip Hemostasis 360deg 235cm Resolution 360 Latex Free 2.8mm Channel Bx/20ea - [id number] Implanted:Qty: 1 on 12/09/2019 by Lola Le MD at [facility] [employer]E [id number] / / Procedures Procedure Name Priority Date/Time [...] 51 Admit Type: Outpatient Gender: Male Room: [place] [address] Referring MD: NATALIA PANIAGUA Exam Type: Colonoscopy [...] monitored continuously. The Olympus adult variable colonoscope [id number] #[id number] introduced through the anus and advanced [...] 9:48 AM Procedure Code(s): --- Professional --- 00320, Colonoscopy, flexible; with removal of tumor(s), polyp(s), or other lesion(s) by snare technique --- Technical --- 93762, Colonoscopy, flexible; with removal of tumor(s), polyp(s), or other lesion(s) by snare technique Diagnosis Code(s): --- Professional --- Z12.11, Encounter for screening for malignantneoplasm of colon D12.6, Benign neoplasm of colon, unspecified --- Technical --- Z12.11, Encounter for screening for malignantneoplasm of colon D12.6, Benign neoplasm of colon, unspecified CPT copyright 2018 [employer]. All rights reserved. The codes documented in this report are preliminary and upon braille coder reviewmay be revised to meet current compliance requirements. Procedure Date: 12/09/2019 9:48:[address] [place] [address] Jefry Paniagua MD GI PROCEDURE ORDERABLES Final Result from Last 3 Months or Most Recently Relevant to Health Maintenance Insurance [facility] Advance Directives For more information, please contact: [phone] (9AM - 5PM [facility], Saturday-Saturday) Documents on File Type Date Recorded Patient Conductor Sleeping Car Expl anation Durable Power of Clinical Documentation Developer 12/10/2019 11:03 AM Care Teams Felt Pad Cutter Relationship Specialty Start Date End Date Refugio Long MD [address] [place] [address] PCP - General Family Medicine 09/22/24 Additional Source Comments The information contained in this document represents components of the legal health record. It is not the complete legal health record.[facility]
--- OUTSIDE RECORDS SUMMARY | 2024-11-16 14:49 | XMS_ITS | Encounter Summary ---
Author Organization [facility] Address [address] [place] [address] Phone Care Team Providers Care Registered Associate Name Role Phone Jefry Farrell MD Primary Care Provider Refugio Long MD Primary Care Provider Encounter Details Date Type Department Care Team (Late st Contact Info) Description 12/09/2019 Procedure Pass [facility] Endoscopy Admitting Dept Virtual Department [address] [place] [address] Social History Tobacco Use Types Packs/Day Years [...] on filedocumented in this encounter Care Teams Registered Associate Relationship Specialty Start Date End Date Jefry Farrell MD [address] [place] [address] [place] [address] PCP - General Internal Medicine 11/27/19 09/21/24 Refugio Long MD [address] [place] [address] PCP - General Family Medicine 09/22/24 documented as of this encounter Additional Source Comments The information contained in this document represents components of the legal health record. It is not the complete legal health record.[facility]
== END 2024-11-16 11:51 | disposition home or self-care (01) ==
PROVIDERS: PCP Family Medicine; Visit Provider Internal Medicine Cardiovascular Disease
DX: Z95.2 Presence of prosthetic heart valve (principal); I48.0 Paroxysmal atrial fibrillation
CPT/HCPCS: 93010; 99214; G2211

== ENCOUNTER → 2024-11-16 11:07 | Outpatient (BNVA) | payer OTHER, SELFPAY | PROVIDERS: PCP Internal Medicine; Visit Provider Internal Medicine Cardiovascular Disease | DX: I48.0 Paroxysmal atrial fibrillation (principal) | CPT/HCPCS: 93005 ==

== ENCOUNTER 2024-11-16 16:19 | Outpatient (AMB) | payer OTHER, SELFPAY ==
--- NOTE | 2024-11-16 16:19 | A.OFFPC_ITS ---
Intake Visit Reasons: f/u labs via telemedicine Allergies No Known Allergies Allergy (Verified 11/16/24 16:19) Tobacco use date assessed: 11/16/24 Dental Screening Dental Screen Date: 11/16/24 Did you have a dental visit in the last 12 months?: Yes Did you have a dental problem in the last 6 months where you did not have access to dental care?: No Was dental information given to patient?: Patient has dentist HPI f/u labs via telemedicine HPI Details 54 y/o male presents to f/u liver enzyme s, labs via telemedicine. Labs drawn 11/12/24. Reviewed labs with pt. Liver enzymes are fine - AST 34, ALT 30. Abd ultrasound 10/28/24 shows: Hepatomegaly, mild. Probable hepatic steatosis. Probable 1.1 cm hemangioma, right hepatic lobe. 2.2 cm exophytic simple cyst, right kidn ey. No cholelithiasis or choledocholithiasis. [facility] Medical History Paroxysmal atrial fibrillation Venous insufficiency History of DVT (deep vein thrombosis) Protein S deficiency Surgical History S/P AVR Hx of cardiac cath (~2014) Family History Father No problems noted. Mother No problems noted. Sister HTN (hypertension) Diabetes Social History Housing: House Alcohol intake: never Patient Tobacco Use Status: Never used Tobacco e-Cigarette/Vaping Use: Never Used Second Hand Smoke Exposure: No service: No Current occupational status: retired Current occupation: retiered early Current occupational exposures/hazards: No Cognitive needs: No Hearing needs: No Vision needs: Yes Questionnaire PHQ-9 Over the last 2 weeks, how often have you been bothered by any of the following problems? 1. Little interest or pleasure in doing things: not at all 2. Feeling down, depressed, or hopeless: not at all 3. Trouble falling or staying asleep, or sleeping too much: not at all 4. Feeling tired or having little energy: nearly every day 5. Poor appetite or overeating: not at all 6. Feeling bad about yourself - or that you are a failure or have let yourself or your family down: not at all 7. Trouble concentrating on things, such as reading the newspaper or watching television: not at all 8. Moving or speaking so slowly that other people could have noticed. Or the opposite - being so fidgety or restless that you have been moving around a lot more than usual: not at all 9. Thoughts that you would be better off or of hurting yourself in some way: not at all Total score: 3 Depression Screening Interpretation: Negative Depression Screening Done: Yes Source: Developed by Drs. Luke Romero, Yady Martinez, Ned Orozco and colleagues, with an educational sandee from [employer]. Thrive Questionnaire Date Thrive assessed: 05/26/24 I am a: Patient What is your living situation today?: I have a steady place to live Within the past 12 months, did the food you bought not last and you didn't have the money to get more?: Never true Within the past 12 months, did you worry whether your food would run out before you got money to buy more?: Never true Do you have trouble paying for medicines?: No Do you have trouble getting transportation to medical appointments?: No Do you have trouble paying your heating and electricity bill?: No Do you have trouble taking care of your child, family member or friend?: No Do you have trouble with day-to-day activities such as bathing, preparing meals, shopping, managing finances, etc.?: No Are you currently unemployed and looking for a job?: No Are you interested in more education?: No Please select the resources that you would like help with: None Currently or been in a relationship where the following occur: No concerns reported THRIVE Score: 0 AUDIT C Alcohol Use Questionnaire (AUDIT-C) 1. How often do you have a drink containing alcohol?: Never 3. How often do you have six or more drinks on one occasion?: Never Total Score: 0 Score Reviewed/Action Taken: Yes FUNMILAYO-7 AMB Questionnaire FUNMILAYO-7 Date FUNMILAYO - 7 assessed: 08/31/24 Feeling nervous, anxious, or on edge: 0 = Not at all Not being able to stop or control worryin = Not at all Worrying too much about different things: 0 = Not at all Trouble relaxin = Not at all Being so restless that it is hard to sit still: 0 = Not at all Becoming easily annoyed or irritable: 0 = Not at all Feeling afraid as if something awful might happen: 0 = Not at all Total FUNMILAYO-7 score (0-4 normal; 5-9 mild; 10-14 moderate; 15-21 severe): 0 Source: Developed by Drs. Luke Romero, Yady Martinez, Ned Orozco and colleagues, with an educational sandee from [employer]. Physical exam (Primary Care) Tobacco/Smoking Status: Tobacco use Status Tobacco use date assessed 11/16/24 11/16/24 16:20 Patient Tobacco Use Status Never used Tobacco 11/16/24 16:20 e-Cigarette/Vaping Use Never Used 11/16/24 16:20 PHQ-9: PHQ-9 Score PHQ-9: Total score 3 11/16/24 17:11 Depression Screening Interpretation: Negative Thrive Assessment: Date of Thrive Assessment Date Thrive assessed 05/26/24 11/16/24 16:20 Currently or been in a relationship where the following occur: No concerns reported Telehealth Telehealth Telehealth Platform: Telephone Location of provider rendering services: practice address Location of patient: address on file Patient Identification confirmed using: Name, : Yes Telehealth method: voice only Patient verbally consented to treatment: Yes Patient verbally consented to billing insurance company: Yes Patient informed of any privacy concerns related to visit: Yes Minutes spent on Phone/Video with Pt.: 7 Coding Level of Care Code Tele Est Pt Level 2 (61357) Diagnoses Elevated liver enzymes R74.8 Cyst of right kidney N28.1 Assessment & Plan Assessment & Plan (1) Elevated liver enzymes: Code(s): R74.8 - Abnormal levels of other serum enzymes Category: Medical Plan: Mildly elevated liver enzymes that had increased at prior measurements. Most recently now liver enzymes are within normal range. He has been working on good hydration Ultrasound showed mild hepatomegaly with hepatic steatosis. Also showed a hemangioma Any these may be responsible for elevated liver enzymes but likely fatty liver disorder is the cause. I encouraged about 5-10 lb weight loss. Continue good hydration We can follow-up begin in about 6 months. (2) Cyst of right kidney: Code(s): N28.1 - Cyst of kidney, acquired Category: Medical Plan: Radiologist notes symptoms cyst Orders: Orders Comprehensive [place]. Panel Fast Today R74.8 - Abnormal levels of other serum enzymes, Z00.00 - Encounter for general adult medical examination without abnormal findings
== END 2024-11-16 17:05 ==
LOC: HO.HMCFM 16:19
PROVIDERS: PCP Family Medicine; Visit Provider Family Medicine
DX: R74.8 Abnormal levels of other serum enzymes (principal); N28.1 Cyst of kidney, acquired

== ENCOUNTER 2024-11-27 08:00 | Outpatient (AMB) | payer OTHER, SELFPAY ==
--- OUTSIDE RECORDS SUMMARY | 2024-11-27 08:04 | XMS_ITS | Clinical Summary ---
Author Organization [facility] Address [address] [facility] [address] [place] [address] Phone Care Team Providers Care Turnaround Planner Name Role Phone Refugio Long MD Primary [...] Office Visit [facility] at [address] [address] Isabel Fontaine, MALLORIE Cellulitis of left upper [...] 03/13/2020 2:08 PM EST Plan of Treatment Upcoming Encounters Date Type Department Care Team (Late st Contact Info) Description 02/18/2025 Procedure Pass [facility] Endoscopy Admitting Dept Virtual Department [address] [place] [address] 02/18/2025 9:30 AM EST Hospital Encounter [facility] Endoscopy Admitting Dept Virtual Department [address] [place] [address] Lola Le MD [address] [place] [address] [email or web address] 02/18/2025 9:30 AM EST - 02/18/2025 10:00 AM EST Surgery [facility] Endoscopy Admitting Dept Virtual Department [address] [place] [address] Lola Le MD [address] [place] [address] [email or web address] COLONOSCOPY Scheduled Procedures Name Priority Associated Diagnoses Date/Ti me COLONOSCOPY Hx of colonic polyps 02/18/2025 9:30 AM EST Health Maintenance Due Date Last Done Comments [...] this topic Medical Devices Implanted Type Area Drawing Box Tender Device Identifier Shelf Expiration Date Model / Serial / Lot Clip Hemostasis 360deg 235cm Resolution 360 Latex Free 2.8mm Channel Bx/20ea - [id number] Implanted:Qty: 1 on 12/09/2019 by Lola Le MD at [facility] [employer] [facility] [id number] / / Procedures Procedure Name Priority Date/Time [...] 51 Admit Type: Outpatient Gender: Male Room: [facility] 04 Referring MD: NATALIA PANIAGUA Exam Type: Colonoscopy [...] monitored continuously. The Olympus adult variable colonoscope [id number] #2was introduced through the anus and advanced [...] 9:48 AM Procedure Code(s): --- Professional --- 74366, Colonoscopy, flexible; with removal of tumor(s), polyp(s), or other lesion(s) by snare technique --- Technical --- 41861, Colonoscopy, flexible; with removal of tumor(s), polyp(s), or other lesion(s) by snare technique Diagnosis Code(s): --- Professional --- Z12.11, Encounter for screening for malignantneoplasm of colon D12.6, Benign neoplasm of colon, unspecified --- Technical --- Z12.11, Encounter for screening for malignantneoplasm of colon D12.6, Benign neoplasm of colon, unspecified CPT copyright 2018 [employer]. All rights reserved. The codes documented in this report are preliminary and upon icd 9 coder reviewmay be revised to meet current compliance requirements. Procedure Date: 12/09/2019 9:48:[address] [place] [address] Jefry Paniagua MD GI PROCEDURE ORDERABLES Final Result from Last 3 Months or Most Recently Relevant to Health Maintenance Insurance [facility] Advance Directives For more information, please contact: [phone] (9AM - 5PM Katelynn/[facility], Saturday-Saturday) Documents on File Type Date Recorded Patient Resource Room Teacher Expl anation Durable Power of Marble Installation Helper 12/10/2019 11:03 AM Care Teams Turnaround Planner Relationship Specialty Start Date End Date Refugio Long MD [address] [place] [address] PCP - General Family Medicine 09/22/24 Additional Source Comments The information contained in this document represents components of the legal health record. It is not the complete legal health record.[facility]
--- OUTSIDE RECORDS SUMMARY | 2024-11-27 08:04 | XMS_ITS | Encounter Summary ---
Author Organization [facility] Address [address] [place] [address] Phone Care Team Providers Care Plate Take Out Worker Name Role Phone Jefry Farrell MD Primary Care Provider Refugio Long MD Primary Care Provider Encounter Details Date Type Department Care Team (Late st Contact Info) Description 12/09/2019 Procedure Pass [facility] Endoscopy Admitting Dept Virtual Department [address] [place] [address] Social History Tobacco Use Types Packs/Day Years [...] as of this encounter Plan of Treatment Upcoming Encounters Date Type Department Care Team (Late st Contact Info) Description 02/18/2025 Procedure Pass [facility] Endoscopy Admitting Dept Virtual Department [address] [place] [address] 02/18/2025 9:30 AM EST Hospital Encounter [facility] Endoscopy Admitting Dept Virtual Department [address] [place] [address] Jhoan Acosta MD [address] [place] [address] 02/18/2025 9:30 AM EST - 02/18/2025 10:00 AM EST Surgery [facility] Endoscopy Admitting Dept Virtual Department [address] [place] [address] Jhoan Acosta MD [address] [place] [address] [email or web address] COLONOSCOPY Scheduled Procedures Name Priority Associated Diagnoses Date/Ti me COLONOSCOPY Hx of colonic polyps 02/18/2025 9:30 AM EST documented as of this encounter Visit Diagnoses Not on filedocumented in this encounter Care Teams Plate Take Out Worker Relationship Specialty Start Date End Date Jefry Farrell MD [address] [place] [address] [address] [place] [address] PCP - General Internal Medicine 11/27/19 09/21/24 Refugio Long MD [address] [place] [address] PCP - General Family Medicine 09/22/24 documented as of this encounter Additional Source Comments The information contained in this document represents components of the legal health record. It is not the complete legal health record.[facility]
--- OUTSIDE RECORDS SUMMARY | 2024-11-27 08:04 | XMS_ITS | Patient Health Record ---
Author Organization [facility] Address [address] [place] [address] Care Team Providers Care Rfid Strategist Name Role Phone Bud (RETIRED) Jefry LAWSON Primary Care Provide r Unavailable Stefan Glover Jr Unavailable [phone] Reason For Referral No Information Plan Of Treatment No Information Insurance Providers Payer Name Payer Address Payer Phone Subscriber Number Group Number Insured Name Patient Relationship to Insured Coverage Start Date Coverage End Date [facility] [address] [place], [place] [id number] ALYSON GILLETTE Self - patient is the insured
[2024-11-27 08:08] LABS: Prothrombin Time Whole Bld POC 37.3 sec (11.1-13.5); ~PT, ~INR - Anti Coag Clinic 3.1 (0.9-1.1)
--- NOTE | 2024-11-27 08:10 | MHC.OFFVISCO ---
Intake Intake Visit Reasons: Anticoagulation Allergies No Known Allergies Allergy (Verified 11/27/24 08:02) Medication List - Last Reconciled 11/27/24 by Tomeka Louis, RN cholecalciferol (vitamin D3) 50 mcg PO DAILY simvastatin 10 mg PO DAILY 90 days warfarin See Protocol INR HAS REQUIRED WARFARIN DOSE INCREASE 10MG X 5 DAYS / 12MG X 2 DAYS orally daily; 2-3 TABS DAILY PER INR PER ANTICOAG 90 days Nursing Note INR: 3.1 in therapeutic range of 2.5-3.5 Medications and supplements reviewed No changes in health, diet, medications, or supplements, Denies any signs and symptoms of bleeding or bruising or clotting. 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
== END 2024-11-27 08:13 | disposition home or self-care (01) ==
LOC: HO.ACS 08:00
PROVIDERS: PCP Family Medicine; Visit Provider Internal Medicine Medical Oncology
DX: Z79.01 Long term (current) use of anticoagulants (principal)

== ENCOUNTER → 2024-11-27 08:00 | Outpatient (BNVA) | payer OTHER, SELFPAY | PROVIDERS: PCP Family Medicine; Visit Provider Internal Medicine Medical Oncology | DX: I48.0 Paroxysmal atrial fibrillation (principal); D68.59 Other primary thrombophilia; Z95.2 Presence of prosthetic heart valve; Z86.718 Personal history of other venous thrombosis and embolism; Z79.01 Long term (current) use of anticoagulants; Z51.81 Encounter for therapeutic drug level monitoring | CPT/HCPCS: 85610; 99211 ==

== ENCOUNTER 2024-12-09 08:18 | Outpatient (REF) | payer OTHER, SELFPAY ==
--- NOTE | ~2024-12-09 | US_ITS ---
EXAMINATION: US ABDOMEN LIMITED WITH LIVER ELASTOGRAPHY HISTORY: elevated AST TECHNIQUE: Real-time grayscale ultrasound imaging of the right upper quadrant was performed and images were reviewed. COMPARISON: Comparison is made with the prior examination dated 10/28/2024. FINDINGS: Liver: The right lobe of the liver measures 15.1 cm in size. The left lobe of the liver measures 7.6 cm in size. The liver demonstrates normal homogeneous echotexture. No focal mass or intrahepatic biliary ductal dilatation is identified. The previously seen echogenic lesion in the right lobe is not identified. There is normal hepatopedal flow in the portal vein. Ultrasound elastography of the liver was performed with 10 separate measurements of the liver parenchyma with the patient in the supine position. Measurements were obtained approximately 2 cm below Mckayla's capsule and perpendicular to the capsule. The median shear wave velocity is 1.57 m/s. The interquartile range/median (IQR/median) is 0.20. Gallbladder and biliary tree: The gallbladder is unremarkable, without evidence of calculi, wall thickening, or pericholecystic fluid. There is no sonographic Michael sign. The common bile duct is normal in caliber measuring 3 mm. Right Kidney: The right kidney measures 11.5 cm in length and demonstrates an upper pole cyst measuring 2.0 x 1.7 x 1.7 cm. The right kidney is otherwise unremarkable, without evidence of solid masses, hydronephrosis, or calculi. Pancreas: The pancreatic head, neck, and body are unremarkable. The pancreatic tail is obscured by bowel gas. Abdominal aorta and inferior vena cava: The visualized portions of the abdominal aorta and inferior vena cava are normal in caliber. There is no free fluid in the right upper quadrant. US/US abdomen quinteros w elastography IMPRESSION: 2.0 cm right upper pole renal cyst. Otherwise unremarkable right upper quadrant ultrasound. The median shear wave velocity in the liver is 1.57 m/s, corresponding to a median liver stiffness of 7.47 kPa. The IQR/median value is 0.20. This is indicative of a poor quality data set, and the estimated liver stiffness may be unreliable. Findings are indicative of a low elastography value which rules out advanced chronic liver disease in asymptomatic patients. REFERENCE: Society of Radiologists in Ultrasound Liver Stiffness Thresholds (2020): LIVER STIFFNESS THRESHOLDS: *Shear wave velocity less than 1.3 m/s (Liver Stiffness equal or less than 5 kPa): High probability of being normal. *Shear wave velocity less than 1.7 m/s (Liver Stiffness less than 9 kPa): In the absence of other known clinical signs, rules out compensated advanced chronic liver disease. *Shear wave velocity between 1.7-2.1 m/s (Liver Stiffness 9-13 kPa): Suggestive of compensated advanced chronic liver disease but need further test for confirmation. *Shear wave velocity between 2.1-2.4 m/s (Liver Stiffness 13-17 kPa): Rules in compensated advanced chronic liver disease. *Shear wave velocity greater than 2.4 m/s (Liver Stiffness over 17 kPa): Suggestive of clinically significant portal hypertension. QUALITY OF DATA SET: *IQR/Median value equal or less than 0.15 implies a quality data set. *IQR/Median value over 0.15 implies a poor quality data set. SIGNIFICANT CHANGE FROM PRIOR EXAM: Significant change if liver stiffness measurement is 10% or greater from prior exam. OTHER CONSIDERATIONS: The stage of liver fibrosis may be overestimated in the setting of acute hepatitis, liver inflammation, elevated liver function tests, hepatic vascular congestion, obstructive cholestasis, non-fasting state, and infiltrative diseases such as amyloidosis and lymphoma. In some patients with NAFLD, the liver stiffness thresholds for compensated advanced chronic liver disease may be lower. In causes other than viral hepatitis and NAFLD, liver stiffness thresholds are not well established. Electronically signed by: Luke Jacobo MD 12/09/2024 09:42 AM EDT
== END 2024-12-09 08:19 | disposition home or self-care (01) ==
LOC: HO.US 08:18
PROVIDERS: PCP Family Medicine; Visit Provider Family Medicine
DX: R74.01 Elevation of levels of liver transaminase levels (principal)
CPT/HCPCS: 76705; 76981

== ENCOUNTER → 2024-12-09 09:05 | Outpatient (BNV) | payer OTHER, SELFPAY | PROVIDERS: PCP Family Medicine; Visit Provider Radiology Diagnostic Radiology | DX: R74.01 Elevation of levels of liver transaminase levels (principal); N28.1 Cyst of kidney, acquired | CPT/HCPCS: 76705 ==

== ENCOUNTER 2024-12-25 08:01 | Outpatient (AMB) | payer OTHER, SELFPAY ==
--- OUTSIDE RECORDS SUMMARY | 2024-12-25 08:14 | XMS_ITS | Encounter Summary ---
Author Organization [facility] Address [address] [place] [address] Phone Care Team Providers Care Edging Machine Operator Name Role Phone Jefry Farrell MD Primary Care Provider Refugio Long MD Primary Care Provider Encounter Details Date Type Department Care Team (Late st Contact Info) Description 12/09/2019 Procedure Pass [facility] Endoscopy Admitting Dept Virtual Department [address] [place] [address] Social History Tobacco Use Types Packs/Day Years [...] Pass [facility] Endoscopy Admitting Dept Virtual Department [address] [place] [address] 02/18/2025 9:30 AM EST Hospital Encounter [facility] Endoscopy Admitting Dept Virtual Department [address] [place] [address] Jhoan Acosta MD [address] [place] [address] 02/18/2025 9:30 AM EST - 02/18/2025 10:00 AM EST Surgery [facility] Endoscopy Admitting Dept Virtual Department [address] [place] [address] Jhoan Acosta MD [address] [place] [address] [email or web address] COLONOSCOPY Scheduled Procedures Name Priority Associated Diagnoses Date/Ti me COLONOSCOPY Hx of colonic polyps 02/18/2025 9:30 AM EST documented as of this encounter Visit Diagnoses Not on filedocumented in this encounter Care Teams Edging Machine Operator Relationship Specialty Start Date End Date Jefry Farrell MD [address] [place] [address] [address] [place] [address] PCP - General Internal Medicine 11/27/19 09/21/24 Refugio Long MD [address] [place] [address] PCP - General Family Medicine 09/22/24 documented as of this encounter Additional Source Comments The information contained in this document represents components of the legal health record. It is not the complete legal health record.[facility]
--- OUTSIDE RECORDS SUMMARY | 2024-12-25 08:14 | XMS_ITS | Clinical Summary ---
Author Organization [facility] Address [address] [place] [address] [place] [address] Phone Care Team Providers Care Transportation Program Director Name Role Phone Refugio Long MD Primary [...] Take 2,000 Units by mouth daily. Active Social History Tobacco Use Types Packs/Day Years [...] st Contact Info) Description 02/18/2025 Procedure Pass [facility] Endoscopy Admitting Dept Virtual Department [address] [place] [address] 02/18/2025 9:30 AM EST Hospital Encounter [facility] Endoscopy Admitting Dept Virtual Department [address] [place] [address] Lola Le MD [address] [place] [address] 02/18/2025 9:30 AM EST - 02/18/2025 10:00 AM EST Surgery [facility] Endoscopy Admitting Dept Virtual Department [address] [place] [address] Lola Le MD [address] [place] [address] [email or web address] COLONOSCOPY Scheduled Procedures Name Priority Associated Diagnoses [...] 2) 01/13/2018 INFLUENZA VACCINE (#1) 2024 03/10/2024 COVID-19 VACCINE (2024- season) 2024 03/10/2024, 03/22/2023, 03/09/2022, Additional history exists COLONOSCOPY 12/08/2029 12/09/2019 COLORECTAL CANCER SCREENING 12/08/2029 RSV VACCINE (1 - 1-dose 75+ series) 01/13/2043 SMOKING STATUS SCREENING (Once After 26 Yrs) Completed 12/09/2019 HEPATITIS A VACCINES Aged Out No long [...] this topic Medical Devices Implanted Type Area Storeperson Device Identifier Shelf Expiration Date Model / Serial / Lot Clip Hemostasis 360deg 235cm Resolution 360 Latex Free 2.8mm Channel Bx/20ea - [id number] Implanted:Qty: 1 on 12/09/2019 by Lola Le MD at [facility] [employer] ([employer]) [id number] / / Procedures Procedure Name Priority Date/Time [...] Type: Outpatient Gender: Male Room: [place] [address] Referring MD: NATALIA PANIAGUA Exam Type: Colonoscopy [...] monitored continuously. The Olympus adult variable colonoscope [id number] #2was introduced through the anus and advanced [...] 9:48 AM Procedure Code(s): --- Professional --- 31208, Colonoscopy, flexible; with removal of tumor(s), polyp(s), or other lesion(s) by snare technique --- Technical --- 45045, Colonoscopy, flexible; with removal of tumor(s), polyp(s), or other lesion(s) by snare technique Diagnosis Code(s): --- Professional --- Z12.11, Encounter for screening for malignantneoplasm of colon D12.6, Benign neoplasm of colon, unspecified --- Technical --- Z12.11, Encounter for screening for malignantneoplasm of colon D12.6, Benign neoplasm of colon, unspecified CPT copyright 2018 [employer]. All rights reserved. The codes documented in this report are preliminary and upon life skills specialist reviewmay be revised to meet current compliance requirements. 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 It is not the complete legal health record.[facility]
--- OUTSIDE RECORDS SUMMARY | 2024-12-25 08:14 | XMS_ITS | Patient Health Record ---
Author [facility] Address [address] [place] [address] Care Team Providers Care Drywall Taper Helper Name Role Phone Bud (RETIRED) Jefry LAWSON Primary Care Provide r Unavailable Stefan Glover Jr Unavailable Reason For Referral No Information Plan Of Treatment No Information Insurance Providers Payer Name Payer Address Payer Phone Subscriber Number Group Number Insured Name Patient Relationship to Insured Coverage Start Date Coverage End Date [facility] [address] [place], [place] [id number] ALYSON GILLETTE Self - patient is the insured
[2024-12-25 08:20] LABS: Prothrombin Time Whole Bld POC 39.4 sec (11.1-13.5); ~PT, ~INR - Anti Coag Clinic 3.3 (0.9-1.1)
--- NOTE | 2024-12-25 08:25 | MHC.OFFVISCO ---
Intake Intake Visit Reasons: Anticoagulation Allergies No Known Allergies Allergy (Verified 12/25/24 08:12) Medication List - Last Reconciled 12/25/24 by Tomeka Louis RN cholecalciferol (vitamin D3) 50 mcg PO DAILY simvastatin 10 mg PO DAILY 90 days warfarin See Protocol INR HAS REQUIRED WARFARIN DOSE INCREASE 10MG X 5 DAYS / 12MG X 2 DAYS orally daily; 2-3 TABS DAILY PER INR PER ANTICOAG 90 days Nursing Note INR: 3.3in therapeutic range of 2.5-3.5 Medications and supplements reviewed No changes in health, diet, medications, or supplements, Denies any signs and symptoms of bleeding or bruising or clotting. 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
== END 2024-12-25 09:08 | disposition home or self-care (01) ==
LOC: HO.ACS 08:02
PROVIDERS: PCP Family Medicine; Visit Provider Internal Medicine Medical Oncology
DX: Z79.01 Long term (current) use of anticoagulants (principal)

== ENCOUNTER → 2024-12-25 08:01 | Outpatient (BNVA) | payer OTHER, SELFPAY | PROVIDERS: PCP Family Medicine; Visit Provider Internal Medicine Medical Oncology | DX: I48.0 Paroxysmal atrial fibrillation (principal); Z86.718 Personal history of other venous thrombosis and embolism; Z95.2 Presence of prosthetic heart valve; Z79.01 Long term (current) use of anticoagulants; Z51.81 Encounter for therapeutic drug level monitoring | CPT/HCPCS: 85610; 99211 ==

== ENCOUNTER 2025-01-22 08:02 | Outpatient (AMB) | payer OTHER, SELFPAY ==
--- OUTSIDE RECORDS SUMMARY | 2025-01-22 08:05 | XMS_ITS | Patient Health Record ---
Author Organization [facility] Address [address] [place] [address] Care Team Providers Care Crinkling Machine Operator Name Role Phone Bud (RETIRED) Jefry LAWSON Primary Care Provide r Unavailable Stefan Glover Jr Unavailable [phone] Reason For Referral No Information Plan Of Treatment No Information Insurance Providers Payer Name Payer Address Payer Phone Subscriber Number Group Number Insured Name Patient Relationship to Insured Coverage Start Date Coverage End Date [facility] [address] [place], [place] [id number] [phone] [id number] ALYSON GILLETTE Self - patient is the insured
--- OUTSIDE RECORDS SUMMARY | 2025-01-22 08:05 | XMS_ITS | Encounter Summary ---
Author Organization [facility] Address [address] [place] [address] Phone Care Team Providers Care Chief Relay Tester Name Role Phone Jefry Farrell MD Primary Care Provider Refugio Long MD Primary Care Provider Encounter Details Date Type Department Care Team (Late st Contact Info) Description 12/09/2019 Procedure Pass [facility] Endoscopy Admitting Dept Virtual Department [address] [place] [address] Social History Tobacco Use Types Packs/Day Years [...] Pass [facility] Endoscopy Admitting Dept Virtual Department [address] [place] [address] 02/18/2025 9:30 AM EST Hospital Encounter [facility] Endoscopy Admitting Dept Virtual Department [address] [place] [address] Jhoan Acosta MD [address] [place] [address] 02/18/2025 9:30 AM EST - 02/18/2025 10:00 AM EST Surgery [facility] Endoscopy Admitting Dept Virtual Department [address] [place] [address] Jhoan Acosta MD [address] [place] [address] [email or web address] COLONOSCOPY Scheduled Procedures Name Priority Associated Diagnoses Date/Ti me COLONOSCOPY Hx of colonic polyps 02/18/2025 9:30 AM EST documented as of this encounter Visit Diagnoses Not on filedocumented in this encounter Care Teams Chief Relay Tester Relationship Specialty Start Date End Date Jefry Farrell MD [address] [place] [address] NATALIE [address] [place] [address] PCP - General Internal Medicine 11/27/19 09/21/24 Refugio Long MD [address] [place] [address] [facility] [address] [place] [address] PCP - General Family Medicine 09/22/24 documented as of this encounter Additional Source Comments The information contained in this document represents components of the legal health record. It is not the complete legal health record.[facility]
--- OUTSIDE RECORDS SUMMARY | 2025-01-22 08:05 | XMS_ITS | Clinical Summary ---
Author Organization [facility] Address [address] [place] [address] [place] [phone] Phone Care Team Providers Care Pigment Furnace Tender Name Role Phone Refugio Long MD Primary [...] st Contact Info) Description 02/18/2025 Procedure Pass [facility] Endoscopy Admitting Dept Virtual Department [address] [place] [phone] 02/18/2025 9:30 AM EST Hospital Encounter [facility] Endoscopy Admitting Dept Virtual Department [address] [place] [phone] Lola Le MD [address] [place] [id number] 02/18/2025 9:30 AM EST - 02/18/2025 10:00 AM EST Surgery [facility] Endoscopy Admitting Dept Virtual Department [address] [place] [phone] Lola Le MD [address] [place] [phone] [email or web address] COLONOSCOPY Scheduled Procedures Name Priority Associated Diagnoses [...] INFLUENZA VACCINE (#1) 2024 03/10/2024 COVID-19 VACCINE (8 - 2024-26 season) 2024 03/10/2024, 03/22/2023, 03/09/2022, Additional history [...] on patient's age to complete this topic IPV VACCINES Aged Out No longer eligi ble based on patient's age to complete this topic MENINGOCOCCAL VACCINES (ACWY) Aged Out No longer eligible based on patient's age to complete this topic MENINGOCOCCAL VACCINES (B) Aged Out N o longer eligible based on patient's age to complete this topic Medical Devices Implanted Type Area Day Care Attendant Device Identifier Shelf Expiration Date Model / Serial / Lot Clip Hemostasis 360deg 235cm Resolution 360 Latex Free 2.8mm Channel Bx/20ea - [id number] Implanted:Qty: 1 on 12/09/2019 by Lola Le MD at [facility] Sigmoid Study[employer] STEVE [id number] / / Procedures Procedure Name Priority Date/Time [...] 51 Admit Type: Outpatient Gender: Male Room: [place] [address] Referring MD: NATALIA PANIAGUA Exam Type: Colonoscopy [...] monitored continuously. The Olympus adult variable colonoscope [id number] #2was introduced through the anus and advanced [...] 9:48 AM Procedure Code(s): --- Professional --- 63187, Colonoscopy, flexible; with removal of tumor(s), polyp(s), or other lesion(s) by snare technique --- Technical --- 48583, Colonoscopy, flexible; with removal of tumor(s), polyp(s), or other lesion(s) by snare technique Diagnosis Code(s): --- Professional --- Z12.11, Encounter for screening for malignantneoplasm of colon D12.6, Benign neoplasm of colon, unspecified --- Technical --- Z12.11, Encounter for screening for malignantneoplasm of colon D12.6, Benign neoplasm of colon, unspecified CPT copyright 2018 [employer]. All rights reserved. The codes documented in this report are preliminary and upon telesales agent reviewmay be revised to meet current compliance requirements. 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 It is not the complete legal health record.[facility]
--- NOTE | 2025-01-22 08:08 | MHC.OFFVISCO ---
Intake Intake Visit Reasons: Anticoagulation Allergies No Known Allergies Allergy (Verified 01/22/25 08:03) Medication List - Last Reconciled 01/22/25 by [place]ia Sauer RN cholecalciferol (vitamin D3) 50 mcg PO DAILY simvastatin 10 mg PO DAILY 90 days warfarin See Protocol INR HAS REQUIRED WARFARIN DOSE INCREASE 10MG X 5 DAYS / 12MG X 2 DAYS orally daily; 2-3 TABS DAILY PER INR PER ANTICOAG 90 days Nursing Note INR 4.4-? out of therapeutic range of 2.5-3.5 Medications and supplements reviewed Patient status: no c.o , pt states less active but states will resume prev activity in the near future Medications or supplements: no changes Diet: same Denies any signs and symptoms of bleeding or clotting or unusual bruising Bleeding, bruising, clotting discussed Nutritional guidance given: eat greens to lower, no reds for 2 days Dose: hold dose today then cont 10mg x 5, 12mg x 2 F/U INR Date : pt ref earlier appt than 02/08/25 due to travel?? Patient verbalizing understanding of instructions given. 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
[2025-01-22 08:18] LABS: Prothrombin Time Whole Bld POC 52.6 sec (11.1-13.5); ~PT, ~INR - Anti Coag Clinic 4.4 (0.9-1.1)
== END 2025-01-22 08:20 | disposition home or self-care (01) ==
LOC: HO.ACS 08:02
PROVIDERS: PCP Family Medicine; Visit Provider Internal Medicine Medical Oncology
DX: Z79.01 Long term (current) use of anticoagulants (principal)

== ENCOUNTER → 2025-01-22 08:02 | Outpatient (BNVA) | payer OTHER, SELFPAY | PROVIDERS: PCP Family Medicine; Visit Provider Internal Medicine Medical Oncology | DX: Z79.01 Long term (current) use of anticoagulants (principal) | CPT/HCPCS: 85610; 99211 ==

== ENCOUNTER 2025-02-10 08:19 | Outpatient (AMB) | payer OTHER, SELFPAY ==
[2025-02-10 08:29] LABS: Prothrombin Time Whole Bld POC 35.5 sec (11.1-13.5); ~PT, ~INR - Anti Coag Clinic 3.0 (0.9-1.1)
--- NOTE | 2025-02-10 08:32 | MHC.OFFVISCO ---
Intake Intake Visit Reasons: Anticoagulation Allergies No Known Allergies Allergy (Verified 02/10/25 08:22) Medication List - Last Reconciled 02/10/25 by Rosio Macario RN cholecalciferol (vitamin D3) 50 mcg PO DAILY simvastatin 10 mg PO DAILY 90 days warfarin See Protocol INR HAS REQUIRED WARFARIN DOSE INCREASE 10MG X 5 DAYS / 12MG X 2 DAYS orally daily; 2-3 TABS DAILY PER INR PER ANTICOAG 90 days Nursing Note NO CP,SOB,DIET/MED CHANGES,FALLS OR SX OF BLEEDING. CONTINUE PRESENT DOSE AND FOLLOW-UP IN 4 WEKS GOOD UNDERSTANDING OF DOSING INSTR. 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 Illness/Depression: No Coding Level of Care Code Est Patient Level 1 Diagnoses Current use of anticoagulant therapy Z79.01 Results AMB INR Fingerstick AMB INR Fingerstick 3.0 Last Edit by Rosio Macario RN on 02/10/25 08:29 Assessment & Plan Assessment & Plan (1) Current use of anticoagulant therapy: Code(s): Z79.01 - detention (current) use of anticoagulants Category: Medical
== END 2025-02-10 08:36 | disposition home or self-care (01) ==
LOC: HO.ACS 08:19
PROVIDERS: PCP Family Medicine; Visit Provider Internal Medicine Medical Oncology
DX: Z79.01 Long term (current) use of anticoagulants (principal)

== ENCOUNTER → 2025-02-10 08:19 | Outpatient (BNVA) | payer OTHER, SELFPAY | PROVIDERS: PCP Family Medicine; Visit Provider Internal Medicine Medical Oncology | DX: I48.0 Paroxysmal atrial fibrillation (principal); Z86.718 Personal history of other venous thrombosis and embolism; Z95.2 Presence of prosthetic heart valve; Z51.81 Encounter for therapeutic drug level monitoring; Z79.01 Long term (current) use of anticoagulants | CPT/HCPCS: 85610; 99211 ==